=== PATIENT | female | born 1965 | race Caucasian/White ===

== ENCOUNTER 2016-03-31 15:20 | Emergency (ER) | payer OTHER ==
[2016-03-31 15:27] VITALS: BMI 44.9
--- NOTE | 2016-03-31 16:13 | PDOC ---
History of Present Illness - General Chief Complaint: Respiratory Stated Complaint: SOB, RT CALF PAIN Time Seen by Provider: 03/31/16 15:58 History Source: Patient - History of Present Illness Timing/Duration: reports: other Associated Symptoms: reports: shortness of breath. denies: cough, fever/chills Past History - Past Medical History Allergies/Adverse Reactions: Allergies Allergy/AdvReac Type Severity Reaction Status Date / Time shellfish derived Allergy Verified 03/31/16 15:27 MUSHROOMS Allergy Uncoded 03/31/16 15:27 Home Medications: Ambulatory Orders Cyclobenzaprine HCl [Flexeril -] 10 mg PO Q8H 10/04/11 Omeprazole [Prilosec (RX)] 20 mg PO DAILY 06/09/12 Sertraline HCl [Zoloft -] 50 mg PO HS 06/09/12 Valsartan/Hydrochlorothiazide [Diovan Hct 320-25 mg Tablet] 1 combo PO DAILY Zolpidem Tartrate [Ambien] 10 mg PO HS 06/09/12 Oxycodone HCl/Acetaminophen [Percocet 5-325 mg Tablet] 1 - 2 tab PO Q4H PRN #0 tablet 06/11/12 Albuterol 0.083% Nebulizer Clemencia [Ventolin 0.083% Nebulizer Soln -] 1 neb NEB Q6H PRN 06/02/13 Albuterol Sulfate Inhaler - [Ventolin HFA Inhaler -] 1 - 2 inh PO Q4H PRN Celecoxib [CeleBREX -] 200 mg PO DAILY 06/02/13 Gabapentin 100 mg PO TID 06/02/13 Loratadine [Claritin -] 10 mg PO DAILY 06/02/13 Nebivolol [Bystolic -] 5 mg PO HS 06/02/13 Salmeterol/Fluticasone [Advair 250Mcg/50Mcg] 2 inh PO BID 06/02/13 Asthma: Yes Diabetes: Yes (BORDERLINE) Disorders: Yes (frEquency) HTN: Yes Liver Disease: Yes (elevated LFT'S) Suicide Attempt (Hx): No - Surgical History Abdominal Surgery: Yes (HERNIA) Orthopedic Surgery: Yes (right tkr) - Psycho/Social/Smoking Cessation Hx Anxiety: No Suicidal Ideation: No Smoking Status: Yes Smoking History: Former smoker Have you smoked in the past 12 months: No Number of Cigarettes Smoked Daily: 0 If you are a former smoker, when did you quit?: 2006 Information on smoking cessation initiated: No Hx Alcohol Use: No Drug/Substance Use Hx: No Substance Use Type: None Review of Systems - Review of Systems Constitutional: No: Chills, Fever Respiratory: Yes: Shortness of Breath. No: Cough Cardiac (ROS): Yes: Chest Pain. No: Palpitations *Physical Exam - Vital Signs Last Vital Signs Temp Pulse Resp BP Pulse Ox 97.8 F 98 H 20 140/104 99 03/31/16 15:23 03/31/16 15:23 03/31/16 15:23 03/31/16 15:23 03/31/16 15:23 - Physical Exam General Appearance: Yes: Appropriately Dressed. No: Apparent Distress HEENT: positive: Normal Voice Neck: positive: Supple Respiratory/Chest: positive: Lungs Clear, Normal Breath Sounds. negative: Respiratory Distress Cardiovascular: positive: Regular Rate, S1, S2 Gastrointestinal/Abdominal: positive: Soft. negative: Tender Integumentary: positive: Dry, Warm Neurologic: positive: Fully Oriented, Alert, Normal Mood/Affect ED Treatment Course - LABORATORY CBC & Chemistry Diagram: 03/31/16 16:35 03/31/16 16:35 - RADIOLOGY Radiology Studies Ordered: Category Date Time Status CHEST X-RAY PORTABLE* [RAD] Stat Radiology 03/31/16 15:59 Ordered Medical Decision Making - Medical Decision Making 03/31/16 16:12 50-year-old female, obesity, hypertension, [id number] diabetes, asthma, status post right knee replacement, presenting with shortness of breath 2 days that patient noticed mostly on exertion. States symptoms worsened today and while on her way to the ED developed some vague chest pain that has since resolved. Patient denies any palpitations, diaphoresis, nausea or vomiting. No history of similar symptoms in past. Pt states she was seen by her PMD this week and told BP was elevated and had new meds added to regimen. Patient also complaining of severe bilateral leg cramps, right greater than left that started 6 days ago. No obvious risk factors for DVT/PE See Exam Intermittent sob w/ CP Sxs since resolved Hypertensive in ED w/ clear chest/lungs R/o ACS -ekg -trops x 2 -labs -cxr B/l LE pain No swelling on exam No RF for DVT but unable to PERC out given age, will send dimer veto given sob/cp Possible MSK -pain control 03/31/16 18:34 EKG, CXR and labs neg, BNP still pending. Pt remains stable in ED, for rpt trop in 6 hrs. 03/31/16 18:37 *DC/Admit/Observation/Transfer Diagnosis at time of Disposition: Shortness of breath Chest pain Qualifiers: Chest pain type: unspecified Qualified Code(s): R07.9 - Chest pain, unspecified Addendum entered and electronically signed by Mahad Carbone PA 03/31/16 18:49 : Progress Note - Progress Note Progress Note: Regarding leg cramps, pt now reports she was on gabapentin in past but ahs since been taken on. Toradol in progress
--- NOTE | 2016-03-31 16:41 | PDOC ---
*Physical Exam - Vital Signs Last Vital Signs Temp Pulse Resp BP Pulse Ox 97.8 F 98 H 20 140/104 99 03/31/16 15:23 03/31/16 15:23 03/31/16 15:23 03/31/16 15:23 03/31/16 15:23 ED Treatment Course - LABORATORY CBC & Chemistry Diagram: 03/31/16 16:35 03/31/16 16:35 Medical Decision Making - Medical Decision Making 03/31/16 16:41 Pt seen by Midlevel Provider under my direct supervision Ancillary studies reviewed I agree with plan as outlined by Midlevel Provider *DC/Admit/Observation/Transfer Diagnosis at time of Disposition: Chest pain, SOB (shortness of breath) - Discharge Dispostion Disposition: HOME Condition at time of disposition: Stable - Referrals Referrals: Jeff Voss MD [Primary Care Provider] - - Patient Instructions Printed Discharge Instructions: DI for Chest Pain Additional Instructions: Your Discharge Instructions: You must call primary care physician within 24 hours to arrange follow-up. Return to the Emergency Department with any new, persistent or worsening symptoms, for fever, chills, SOB, dizziness or any other concerning changes that may occur.
[2016-03-31] MEDS ORDERED: KETOROLAC TROMETHAMINE 30 MG/1 ML VIAL IVPUSH ONE (17:00)
[2016-03-31 17:18] LABS: BASOPHIL 0.5 % (0-2.0); EOSINOPHIL 2.4 % (0-4.5); MCH 28.4 pg (25.7-33.7); MCHC 32.5 g/dl (32.0-36.0); MEAN CELL VOLUME 87.6 fl (80-96); MEAN PLT VOLUME 8.2 fl (7.5-11.1); NEUTROPHILS 53.1 % (42.8-82.8); PLATELET COUNT 404 K/MM3 (134-434); RDW 13.7 % (11.6-15.6); WHITE BLOOD COUNT 8.3 K/mm3 (4.0-10.0)
[2016-03-31 17:59] LABS: ALBUMIN 3.9 g/dl (3.4-5.0); ANION GAP 8 (8-16); CALCIUM 9.1 mg/dL (8.5-10.1); CO2 31 mmol/L (21-32); GLUCOSE,RANDOM 99 mg/dL (74-106)
[2016-03-31 18:01] LABS: TROPONIN I < 0.02 ng/ml (0.00-0.05)
[2016-03-31 18:02] LABS: ALK PHOS 113 U/L (45-117); BILIRUBIN,TOTAL 0.3 mg/dL (0.2-1.0); SGOT/AST 56 U/L (15-37); SGPT/ALT 73 U/L (12-78); TOT PROT 7.8 g/dl (6.4-8.2)
[2016-03-31] MEDS ORDERED: KETOROLAC TROMETHAMINE 30 MG/1 ML VIAL ONE (18:16)
[2016-03-31 18:26] LABS: URINE APPEARANCE SLCLOUDY; URINE BILIRUBIN NEGATIVE (NEGATIVE); URINE BLOOD NEGATIVE (NEGATIVE); URINE COLOR YELLOW; URINE GLUCOSE (UA) NEGATIVE (NEGATIVE); URINE KETONE NEGATIVE (NEGATIVE); URINE NITRITE NEGATIVE (NEGATIVE); URINE PROTEIN NEGATIVE (NEGATIVE); URINE UROBILINOGEN NEGATIVE E.U./dl (0.2-1.0)
[2016-03-31 18:39] LABS: URINE LEUK ESTERASE 1+ (NEGATIVE)
[2016-03-31 18:59] LABS: TROPONIN I < 0.02 ng/ml (0.00-0.05); URINE HYALINE CAST 4 /lpf; URINE MUCUS RARE; URINE RBC 7 /hpf (0-3); URINE WBC <1 /hpf (3-5)
--- NOTE | 2016-03-31 22:05 | PDOC ---
*Physical Exam - Vital Signs Last Vital Signs Temp Pulse Resp BP Pulse Ox 97.8 F 86 18 144/88 97 03/31/16 15:23 03/31/16 20:08 03/31/16 20:08 03/31/16 20:08 03/31/16 20:08 ED Treatment Course - LABORATORY CBC & Chemistry Diagram: 03/31/16 16:35 03/31/16 16:35 - ADDITIONAL ORDERS Additional order review: Laboratory Results 03/31/16 03/31/16 03/31/16 16:35 16:35 16:35 D-Dimer < 200 Sodium 140 Potassium 4.3 Chloride 101 Carbon Dioxide 31 Anion Gap 8 BUN 19 H Creatinine 1.0 Creat Clearance w eGFR 58.45 Random Glucose 99 Calcium 9.1 Total Bilirubin 0.3 AST 56 H ALT 73 Alkaline Phosphatase 113 Creatine Kinase Troponin I < 0.02 B-Natriuretic Peptide 22.51 Total Protein 7.8 Albumin 3.9 Serum , Qual Negative Urine Color Yellow Urine Appearance Slcloudy Urine pH 5.0 Ur Specific Garwin 1.024 Urine Protein Negative Urine Glucose (UA) Negative Urine Ketones Negative Urine Blood Negative Urine Nitrite Negative Urine Bilirubin Negative Urine Urobilinogen Negative Ur Leukocyte Esterase 1+ H Urine RBC 7 Urine WBC <1 Ur Epithelial Cells Rare Hyaline Casts 4 Urine Mucus Rare 03/31/16 16:35 D-Dimer Sodium Potassium Chloride Carbon Dioxide Anion Gap BUN Creatinine Creat Clearance w eGFR Random Glucose Calcium Total Bilirubin AST ALT Alkaline Phosphatase Creatine Kinase 107 Troponin I < 0.02 B-Natriuretic Peptide Total Protein Albumin Serum , Qual Urine Color Urine Appearance Urine pH Ur Specific Garwin Urine Protein Urine Glucose (UA) Urine Ketones Urine Blood Urine Nitrite Urine Bilirubin Urine Urobilinogen Ur Leukocyte Esterase Urine RBC Urine WBC Ur Epithelial Cells Hyaline Casts Urine Mucus 03/31/16 16:35 RBC 4.87 D MCV 87.6 MCHC 32.5 RDW 13.7 MPV 8.2 Neutrophils % 53.1 D Lymphocytes % 35.8 D Monocytes % 8.2 Eosinophils % 2.4 D Basophils % 0.5 - Medications Given in the ED: ED Medications Discontinued Medications Generic Name Dose Route Start Last Admin Trade Name Freq PRN Reason Stop Dose Admin Ketorolac Tromethamine 30 mg 03/31/16 17:00 03/31/16 18:19 Toradol Injection - IVPUSH 03/31/16 17:01 30 mg ONCE ONE Administration Medical Decision Making - Medical Decision Making 03/31/16 22:00 Patient was endorsed to me by MARIA L Bautista pending repeat ekg and trop. Patient was seen and evaluated c/o b/l leg cramping and concerned that the problems was not addressed. States she feels a knot in the right leg. P/E right leg nontender, no cord felt. d-dimer neg. the above result d/w the patient await EKG and trop #2 03/31/16 23:03 repeat trop neg EKG sinus rhythm rate 83, normal axis deviation, no ST-T wave changes c/o cramping in the legs again given Valium 5mg po I discussed the physical exam findings, ancillary test results and final diagnoses with the patient. I answered all of the patient's questions. The patient was satisfied with the care received and felt comfortable with the discharge plan and treatment plan. The Patient agrees to follow up with the primary care physician within 24-72 hours. *DC/Admit/Observation/Transfer Diagnosis at time of Disposition: SOB (shortness of breath) Chest pain Qualifiers: Chest pain type: unspecified Qualified Code(s): R07.9 - Chest pain, unspecified - Discharge Dispostion Condition at time of disposition: Stable - Referrals Referrals: Jeff Voss MD [Primary Care Provider] - - Patient Instructions Printed Discharge Instructions: DI for Chest Pain Additional Instructions: Your Discharge Instructions: You must call primary care physician within 24 hours to arrange follow-up. Return to the Emergency Department with any new, persistent or worsening symptoms, for fever, chills, SOB, dizziness or any other concerning changes that may occur. - Post Discharge Activity
[2016-03-31] MEDS ORDERED: diazePAM 5 MG TABLET PO ONE (23:03)
[2016-03-31] MEDS ORDERED: diazePAM 5 MG TABLET ONE (23:21)
[2016-03-31 23:32] VITALS: BP 157/102; PULSE 88; TEMP 97.3
--- NOTE | 2016-04-01 14:36 | EKG ---
Test Reason : Blood Pressure : / mmHG Vent. Rate : 083 BPM Atrial Rate : 083 BPM P-R Int : 130 ms QRS Dur : 084 ms QT Int : 392 ms P-R-T Axes : 018 031 022 degrees QTc Int : 460 ms POOR DATA QUALITY, INTERPRETATION MAY BE ADVERSELY AFFECTED NORMAL SINUS RHYTHM NORMAL ECG WHEN COMPARED WITH ECG OF 31-MAR-2016 17:15, NO SIGNIFICANT CHANGE WAS FOUND Confirmed by MARITZA DUMONT MD ([id number]) on 04/01/2016 2:36:33 PM Referred By: Confirmed By:MARITZA DUMONT MD
--- NOTE | 2016-04-01 14:40 | EKG ---
Test Reason : Blood Pressure : / mmHG Vent. Rate : 094 BPM Atrial Rate : 094 BPM P-R Int : 132 ms QRS Dur : 082 ms QT Int : 372 ms P-R-T Axes : 024 021 017 degrees QTc Int : 465 ms NORMAL SINUS RHYTHM POSSIBLE LEFT ATRIAL ENLARGEMENT BORDERLINE ECG WHEN COMPARED WITH ECG OF 03-MAR-2012 18:49, NO SIGNIFICANT CHANGE WAS FOUND Confirmed by MARITZA DUMONT MD ([id number]) on 04/01/2016 2:39:55 PM Referred By: Confirmed By:MARITZA DUMONT MD
== END 2016-03-31 23:33 | disposition home or self-care (01) ==
LOC: JER 15:20
PROC: 3E0333Z Introduction of Anti-inflammatory into Peripheral Vein, Percutaneous Approach (ICD-10-PCS; principal; 2016-03-31)
DX: R07.9 Chest pain, unspecified (principal); R06.02 Shortness of breath; I10 Essential (primary) hypertension; E11.9 Type 2 diabetes mellitus without complications; J45.909 Unspecified asthma, uncomplicated; E66.01 Morbid (severe) obesity due to excess calories; Z68.42 Body mass index [BMI] 45.0-49.9, adult
CPT/HCPCS: 36415; 71010-TC; 80053; 81003; 81015; 82550; 83880; 84484; 84703; 85025; 85379; 93005; 93010; 96374; 99283-25

== ENCOUNTER 2016-05-20 15:30 | Emergency (ER) | payer OTHER ==
[2016-05-20 15:41] VITALS: BP 138/96; PULSE 85; TEMP 98.4; BMI 45.3
--- NOTE | 2016-05-20 16:08 | PDOC ---
History of Present Illness - General Chief Complaint: Abscess Boil Stated Complaint: LEG PAIN Time Seen by Provider: 05/20/16 16:06 History Source: Patient Exam Limitations: No Limitations - History of Present Illness Initial Comments: 05/20/16 16:06 CHIEF COMPLAINT: Right calf bruise, came to r/o Deep Vein Thrombosis PCP: Dr. Lake HISTORY OF PRESENT ILLNESS: Patient is a 50- year-old female presented to the ED with the chief complaints of Right calf bruise, came in to r/o Deep Vein Thrombosis. A/c to the patient, this morning she was fine then noticed a bump on the right calf, bluish in color , tender to touch, no problems in movement. Denies fever, chills, rigors, sweating, chest pain, sob, cough, palpitation, abdominal pain, nausea or vomiting. Patient mentions she has had shortness of breath with b/l lower extremity pain since 2 months. She has been following with Dr. Lake regularly and had CT chest with IV contrast/ Duplex of lower extremity and got the results 3 days back which was unremarkable as per the patient. Patient was seen at the ED on 03/31/2016 for SOB but signed out AMA. Bowel/Bladder habit normal. Sleep/Appetite Normal. Is planning to perform sleeve surgery. Her sister due to brain aneurysm last year and had her Brain MRI to r/o aneurysm which was unremarkable. Recent Travel: None PAST MEDICAL HISTORY: Obesity, Hypertension, DM, Asthma, s/p right total knee replacement PAST SURGICAL HISTORY: As mentioned above Social History: Smoking: Quit in 2006, used to be an occasional smoker Alcohol: Denies Drugs: Stopped smoking marijuana. Family History: Sister last year due to brain aneurysm. Allergies: NKDA Past History - Past Medical History Allergies/Adverse Reactions: Allergies Allergy/AdvReac Type Severity Reaction Status Date / Time shellfish derived Allergy Verified 05/20/16 15:41 MUSHROOMS Allergy Uncoded 05/20/16 15:41 Home Medications: Ambulatory Orders Albuterol Sulfate [Proair Respiclick] 90 mcg IH PRN PRN 03/31/16 Amlodipine Besylate 5 mg PO DAILY 03/31/16 Cyclobenzaprine HCl [Flexeril -] 10 mg PO TID 03/31/16 Insulin Degludec [Tresiba Flextouch U-100] 0 unit SQ ASDIR 03/31/16 Loratadine 10 mg PO DAILY 03/31/16 Loratadine 10 mg PO DAILY 03/31/16 Losartan Potassium 25 mg PO DAILY 03/31/16 Metformin HCl 500 mg PO DAILY 03/31/16 Metoprolol Succinate [Toprol Xl -] 25 mg PO DAILY 03/31/16 Montelukast Sodium [Singulair] 4 mg PO DAILY 03/31/16 Omeprazole 20 mg PO DAILY 03/31/16 Oxycodone HCl/Acetaminophen [Primlev 10-300 mg Tablet] 1 each PO TID 03/31/16 Rosuvastatin Calcium [Crestor] 10 mg PO DAILY 03/31/16 Zolpidem Tartrate 10 mg PO HS 03/31/16 Asthma: Yes Diabetes: Yes (BORDERLINE) Disorders: Yes (frEquency) HTN: Yes Liver Disease: Yes (elevated LFT'S) Suicide Attempt (Hx): No - Surgical History Abdominal Surgery: Yes (HERNIA) Orthopedic Surgery: Yes (right tkr) - Psycho/Social/Smoking Cessation Hx Anxiety: No Suicidal Ideation: No Smoking Status: Yes Smoking History: Former smoker Have you smoked in the past 12 months: No Number of Cigarettes Smoked Daily: 0 If you are a former smoker, when did you quit?: 2006 Information on smoking cessation initiated: No Hx Alcohol Use: No Drug/Substance Use Hx: No Substance Use Type: None Review of Systems - Review of Systems Able to Perform ROS?: Yes Comments:: 05/20/16 18:03 CONSTITUTIONAL:~ Absent: fever, chills, diaphoresis, generalized weakness, malaise, loss of appetite HEENT:~ Absent: rhinorrhea, nasal congestion, throat pain, throat swelling, difficulty swallowing, mouth swelling, ear pain, eye pain, visual Changes CARDIOVASCULAR:~ Absent: chest pain, syncope, palpitations, irregular heart rate, lightheadedness , peripheral edema RESPIRATORY:~ Absent: cough, shortness of breath, dyspnea with exertion, orthopnea, wheezing, stridor, hemoptysis GASTROINTESTINAL: Absent: abdominal pain, abdominal distension, nausea, vomiting, diarrhea, constipation, melena, hematochezia GENITOURINARY:~ Absent: dysuria, frequency, urgency, hesitancy, hematuria, flank pain, genital pain MUSCULOSKELETAL: Absent: myalgia, arthralgia, joint swelling SKIN:~ Absent: rash, itching, pallor HEMATOLOGIC/IMMUNOLOGIC:~ Absent: easy bleeding, easy bruising, lymphadenopathy, frequent infections ENDOCRINE: Absent: unexplained weight gain, unexplained weight loss, heat intolerance, cold intolerance NEUROLOGIC:~ Absent: headache, focal weakness or paresthesias, dizziness, unsteady gait, seizure, mental status changes, bladder or bowel incontinence PSYCHIATRIC:~ Absent: anxiety, depression, suicidal or homicidal ideation, hallucinations. Skin: Present: Bruise over the right calf. Is the patient limited Kazakh proficient: No *Physical Exam - Vital Signs Last Vital Signs Temp Pulse Resp BP Pulse Ox 98.4 F 85 18 138/96 97 05/20/16 15:38 05/20/16 15:38 05/20/16 15:38 05/20/16 15:38 05/20/16 15:38 - Physical Exam Comments: 05/20/16 18:04 PE: GENERAL: Awake, alert, and fully oriented, in no acute distress HEAD: No signs of trauma EYES: PERRLA, EOMI, sclera anicteric, conjunctiva clear ENT: Auricles normal inspection, hearing grossly normal, nares patent, oropharynx clear without exudates. Moist mucosa NECK: Normal ROM, supple, no lymphadenopathy, JVD, or masses LUNGS: Breath sounds equal, clear to auscultation bilaterally. No wheezes, and no crackles.. HEART: Regular rate and rhythm, normal S1 and S2, no murmurs, rubs or gallops ABDOMEN: Soft, nontender, normoactive bowel sounds. No guarding, no rebound. No masses EXTREMITIES: Normal range of motion, no edema. No clubbing or cyanosis. No cords, erythema, or tenderness NEUROLOGICAL: Cranial nerves II through XII grossly intact. Normal speech, normal gait SKIN: Left lower extremity skin normal Right lower extremity: Proximal calf near the popliteal fossa there is a hematoma measuring approximately 6.5 x 6.1 cm with an irregular erythema in the center, tenderness to touch, no problems in the movement of the leg, no calf tenderness (Homans sign negative) Medical Decision Making - Medical Decision Making 05/20/16 16:06 Patient seen and examined at bed side. Vitals noted, unremarkable. Patient looks comfortable. Clinical Impression: Bruise/Hematoma on the right proximal calf measuring approximately 6.5 x 6.1 cm No calf tenderness, patient has duplex of both legs, got report 3 days ago which was negative for DVT as per the patient. Patient has been explained about her clinical condition and can be discharged as she is hemodynamically stable. Patient has been advised to return the ED if symptoms persist or if she develops NEW symptoms and to visit her primary doctor as soon as possible. Illness, Investigation and Plan of care explained to the patient. She verbalized understanding. Case seen and discussed with Dr. Mario. *DC/Admit/Observation/Transfer Diagnosis at time of Disposition: Hematoma - Discharge Dispostion Disposition: HOME Admit: No - Referrals Referrals: Jass Voss [Primary Care Provider] - - Patient Instructions Printed Discharge Instructions: DI for Hematoma (Bruise) Additional Instructions: I am sorry you had to come to the Emergency Care. Your swelling over the right calf looks like its a bruise (Hematoma). It is not a Deep vein thrombosis. Most likely you may have hit the calf without your notice. We can see a red alisson inside the bruise which is likely a alisson of an object that you may have been hit with. The duplex you had last week is negative for DVT as you mentioned, there is no need to worry at this time. However, if your symptoms persist or is getting worse or if you develop NEW symptoms, please come to the Emergency Department immediately. Please make sure you make an appointment with your primary doctor as soon as possible for further evaluation of your chronic symptoms.
--- NOTE | 2016-05-20 17:18 | PDOC ---
Attending Attestation - Resident Resident Name: Summer Nunez - HPI HPI: 05/20/16 17:14 50 yo female p/w 6 cm bruise and hematoma behind her right knee -pt came because she was afraid it was a deep vein thrombosis. -she is not on anticoagulation 05/21/16 02:02 - Physicial Exam PE: 05/21/16 02:02 [id number] presents with bruise behind her right leg lungs cta b/l abd soft nontender extremities- no cellulitis,no abscesses,normal pulses. Hematoma to posterior rt leg neuro axox3,ambulatory - Medical Decision Making 05/21/16 02:04 50 yo female w superficial hematoma to posterior rt leg, discharged home
== END 2016-05-20 17:38 | disposition home or self-care (01) ==
LOC: JER 15:30
DX: S80.11XA Contusion of right lower leg, initial encounter (principal); I10 Essential (primary) hypertension; E11.9 Type 2 diabetes mellitus without complications; Z79.84 Long term (current) use of oral hypoglycemic drugs; J45.909 Unspecified asthma, uncomplicated; R79.89 Other specified abnormal findings of blood chemistry; E66.01 Morbid (severe) obesity due to excess calories; Z68.42 Body mass index [BMI] 45.0-49.9, adult
CPT/HCPCS: 99281-25

== ENCOUNTER 2017-03-11 00:23 | Emergency (ER) | payer OTHER ==
--- NOTE | 2017-03-11 01:29 | PDOC ---
History of Present Illness <Eitan Ramos - Last Filed: 03/11/17 01:53> <Scot Heard - Last Filed: 03/11/17 06:14> - General Chief Complaint: Chest Pain Stated Complaint: CHEST PAIN Time Seen by Provider: 03/11/17 01:06 - History of Present Illness Initial Comments: 03/11/17 01:33 "The patient is a 51 year old female, with a significant past medical history of DM, hypertension, and asthma, who presents to the emergency room complaining left sided chest pain beginning approx. two hours ago. The patient describes the chest pain as a constant pressure feeling that is made worse when bending over. The patient reports she took baby aspirin for the chest pain with mild relief. The patient reports no associated shortness of breath. She denies recent fever, diaphoresis, headache or dizziness. She denies recent nausea, vomit, diarrhea or constipation. She denies recent calf tenderness or swelling, no recent travel/immobilization. No h/o DVT/PE. Allergies: NKA Past surgical history: None reported. Primary Care Physician: Dr. Kaiden Voss " (Scot Heard) Past History <Eitan Ramos - Last Filed: 03/11/17 01:53> - Past Medical History Asthma: Yes Diabetes: Yes (BORDERLINE) Disorders: Yes (frEquency) HTN: Yes Liver Disease: Yes (elevated LFT'S) - Surgical History Abdominal Surgery: Yes (HERNIA) Orthopedic Surgery: Yes (right tkr) - Suicide/Smoking/Psychosocial Hx Smoking Status: Yes Smoking History: Never smoked Have you smoked in the past 12 months: No Number of Cigarettes Smoked Daily: 0 If you are a former smoker, when did you quit?: 2006 Information on smoking cessation initiated: No Hx Alcohol Use: No Drug/Substance Use Hx: No Substance Use Type: None <Scot Heard - Last Filed: 03/11/17 06:14> - Past Medical History Allergies/Adverse Reactions: Allergies Allergy/AdvReac Type Severity Reaction Status Date / Time shellfish derived Allergy Verified 03/11/17 01:17 MUSHROOMS Allergy Uncoded 03/11/17 01:17 Home Medications: Ambulatory Orders Albuterol Sulfate [Proair Respiclick] 90 mcg IH PRN PRN 03/31/16 Amlodipine Besylate 5 mg PO DAILY 03/31/16 Cyclobenzaprine HCl [Flexeril -] 10 mg PO TID 03/31/16 Insulin Degludec [Tresiba Flextouch U-100] 0 unit SQ ASDIR 03/31/16 Loratadine 10 mg PO DAILY 03/31/16 Loratadine 10 mg PO DAILY 03/31/16 Losartan Potassium 25 mg PO DAILY 03/31/16 Metformin HCl 500 mg PO DAILY 03/31/16 Metoprolol Succinate [Toprol Xl -] 25 mg PO DAILY 03/31/16 Montelukast Sodium [Singulair] 4 mg PO DAILY 03/31/16 Omeprazole 20 mg PO DAILY 03/31/16 Oxycodone HCl/Acetaminophen [Primlev 10-300 mg Tablet] 1 each PO TID 03/31/16 Rosuvastatin Calcium [Crestor] 10 mg PO DAILY 03/31/16 Zolpidem Tartrate 10 mg PO HS 03/31/16 Review of Systems <Eitan Ramos - Last Filed: 03/11/17 01:53> <Scot Heard - Last Filed: 03/11/17 06:14> - Review of Systems Comments:: 03/11/17 01:29 "GENERAL/CONSTITUTIONAL: No fever or chills. No weakness. HEAD, EYES, EARS, NOSE AND THROAT: No change in vision. No ear pain or discharge. No sore throat. CARDIOVASCULAR: + L sided chest pain, no shortness of breath. RESPIRATORY: No cough, wheezing, or hemoptysis. GASTROINTESTINAL: No nausea, vomiting, diarrhea or constipation. GENITOURINARY: No dysuria, frequency, or change in urination. MUSCULOSKELETAL: No joint or muscle swelling or pain. No neck or back pain. SKIN: No rash NEUROLOGIC: No headache, vertigo, loss of consciousness, or change in strength/ sensation. ENDOCRINE: No increased thirst. No abnormal weight change. HEMATOLOGIC/LYMPHATIC: No anemia, easy bleeding, or history of blood clots. ALLERGIC/IMMUNOLOGIC: No hives or skin allergy. " (Scot Heard) *Physical Exam <Eitan Ramos - Last Filed: 03/11/17 01:53> <Scot Heard - Last Filed: 03/11/17 06:14> - Vital Signs Last Vital Signs Temp Pulse Resp BP Pulse Ox 98.8 F 96 H 20 148/86 97 03/11/17 01:09 03/11/17 01:09 03/11/17 01:09 03/11/17 01:09 03/11/17 01:09 - Physical Exam Comments: 03/11/17 01:29 "GENERAL: Awake, alert, and fully oriented, in no acute distress HEAD: No signs of trauma EYES: PERRLA, EOMI, sclera anicteric, conjunctiva clear ENT: Auricles normal inspection, hearing grossly normal, nares patent, oropharynx clear without exudates. Moist mucosa NECK: Nontender, no stepoffs, Normal ROM, supple, no lymphadenopathy, JVD, or masses LUNGS: Breath sounds equal, clear to auscultation bilaterally. No wheezes, and no crackles HEART: Regular rate and rhythm, normal S1 and S2, no murmurs, rubs or gallops CHEST: L chest wall tenderness, no crepitus ABDOMEN: Soft, nontender, normoactive bowel sounds. No guarding, no rebound. No masses EXTREMITIES: Normal range of motion, no edema. No clubbing or cyanosis. No cords, erythema, or tenderness NEUROLOGICAL: Cranial nerves II through XII intact. 5/5 strength and sensation in all extremities, Normal speech, normal gait SKIN: Warm, Dry, normal turgor, no rashes or lesions noted. " (Scot Heard) Heart Score/ECG Review <Eitan Ramos - Last Filed: 03/11/17 01:53> - History History: Slightly suspicious - Electrocardiogram EKG: Normal - Age Age: 45-65 - Risk Factors Risk Factors Heart Score: Yes Hx Hypercholesterolemia, Yes Hx Hypertension, Yes Hx Diabetes, Yes Smoking History Based on the list above the patient has:: >/=3 risk factors or Hx atherosclerotic disease - Troponin Troponin: </= normal limit - Score Heart Score - Total: 3 <Scot Heard - Last Filed: 03/11/17 06:14> - ECG Impressions Comment:: 03/11/17 01:27 NSR, no AIDEN/STDs, no TWIs, axis wnl, intervals wnl, rate 89 (Scot Heard) ED Treatment Course - LABORATORY CBC & Chemistry Diagram: 03/11/17 01:22 03/11/17 01:22 <Eitan Ramos - Last Filed: 03/11/17 01:53> - LABORATORY CBC & Chemistry Diagram: 03/11/17 01:22 03/11/17 05:03 <Scot Heard - Last Filed: 03/11/17 06:14> - ADDITIONAL ORDERS Additional order review: Laboratory Results 03/11/17 03/11/17 03/11/17 05:03 05:03 01:22 Sodium 142 137 Potassium 3.6 3.7 Chloride 108 H 101 Carbon Dioxide 22 27 Anion Gap 12 9 BUN 30 H 35 H D Creatinine 1.4 H D 1.8 H D Creat Clearance w eGFR 39.49 29.55 Random Glucose 99 D 162 H D Calcium 7.9 L 9.0 Total Bilirubin 0.2 0.2 D AST 55 H 68 H D ALT 57 66 Alkaline Phosphatase 86 97 Creatine Kinase 108 Troponin I < 0.02 B-Natriuretic Peptide Total Protein 6.3 L 7.0 Albumin 3.2 L 3.7 03/11/17 01:22 Sodium Potassium Chloride Carbon Dioxide Anion Gap BUN Creatinine Creat Clearance w eGFR Random Glucose Calcium Total Bilirubin AST ALT Alkaline Phosphatase Creatine Kinase 126 Troponin I < 0.02 B-Natriuretic Peptide 81.87 Total Protein Albumin 03/11/17 01:22 RBC 4.60 MCV 86.6 MCHC 33.1 RDW 14.1 MPV 8.2 Neutrophils % 57.4 Lymphocytes % 32.8 Monocytes % 8.7 Eosinophils % 0.6 Basophils % 0.5 - RADIOLOGY Radiology Studies Ordered: Category Date Time Status CHEST PA & LAT [RAD] Stat Radiology 03/11/17 01:25 Taken - Medications Given in the ED: ED Medications Discontinued Medications Generic Name Dose Route Start Last Admin Trade Name Ceferino PRN Reason Stop Dose Admin Sodium Chloride 1,000 mls @ 1,000 mls/hr 03/11/17 02:40 03/11/17 02:46 Normal Saline - IV 03/11/17 03:39 1,000 mls/hr ASDIR STA Administration Sodium Chloride 1,000 mls @ 1,000 mls/hr 03/11/17 02:43 03/11/17 02:46 Normal Saline - IV 03/11/17 03:42 1,000 mls/hr ASDIR STA Administration Medical Decision Making <Eitan Ramos - Last Filed: 03/11/17 01:53> <Scot Heard - Last Filed: 03/11/17 06:14> - Medical Decision Making 03/11/17 01:27 51 F with atypical chest pain. Low suspicion for ACS, as pt with nonischemic EKG and reproducible chest pain with palpation. However, given pt's h/o DM, HTN , HLD, will r/o ACS with serial trops. HEART score 3. PE is unlikely, as pt does not complain of SOB. Does not have any clinical signs of DVT on exam. - Labs, trop - CXR 03/11/17 06:05 CBC,CMP WBC 7.3 K/mm3 (4.0-10.0) 03/11/17 01:22 RBC 4.60 M/mm3 (3.60-5.2) 03/11/17 01:22 Hgb 13.2 GM/dL (10.7-15.3) 03/11/17 01:22 Hct 39.8 % (32.4-45.2) 03/11/17 01:22 MCV 86.6 fl (80-96) 03/11/17 01:22 MCH 28.7 pg (25.7-33.7) 03/11/17 01:22 MCHC 33.1 g/dl (32.0-36.0) 03/11/17 01:22 RDW 14.1 % (11.6-15.6) 03/11/17 01:22 Plt Count 304 K/MM3 (134-434) D 03/11/17 01:22 MPV 8.2 fl (7.5-11.1) 03/11/17 01:22 Neutrophils % 57.4 % (42.8-82.8) 03/11/17 01:22 Lymphocytes % 32.8 % (8-40) 03/11/17 01:22 Monocytes % 8.7 % (3.8-10.2) 03/11/17 01:22 Eosinophils % 0.6 % (0-4.5) 03/11/17 01:22 Basophils % 0.5 % (0-2.0) 03/11/17 01:22 Sodium 142 mmol/L (136-145) 03/11/17 05:03 Potassium 3.6 mmol/L (3.5-5.1) 03/11/17 05:03 Chloride 108 mmol/L (98-107) 03/11/17 05:03 Carbon Dioxide 22 mmol/L (21-32) 03/11/17 05:03 Anion Gap 12 (8-16) 03/11/17 05:03 BUN 30 mg/dL (7-18) H 03/11/17 05:03 Creatinine 1.4 mg/dL (0.55-1.02) H D 03/11/17 05:03 Creat Clearance w eGFR 39.49 (>60) 03/11/17 05:03 Random Glucose 99 mg/dL (74-106) D 03/11/17 05:03 Calcium 7.9 mg/dL (8.5-10.1) L 03/11/17 05:03 Total Bilirubin 0.2 mg/dL (0.2-1.0) 03/11/17 05:03 AST 55 U/L (15-37) H 03/11/17 05:03 ALT 57 U/L (12-78) 03/11/17 05:03 Alkaline Phosphatase 86 U/L (45-117) 03/11/17 05:03 Creatine Kinase 108 IU/L (26-192) 03/11/17 05:03 Troponin I < 0.02 ng/ml (0.00-0.05) 03/11/17 05:03 B-Natriuretic Peptide 81.87 pg/ml (5-125) 03/11/17 01:22 Total Protein 6.3 g/dl (6.4-8.2) L 03/11/17 05:03 Albumin 3.2 g/dl (3.4-5.0) L 03/11/17 05:03 Trop negative x 2. CXR clear. Pt initially with ROSALINA with Cr 1.8. Likely pre-renal as BUN also elevated 35. Pt given 2L NS. Repeat CMP shows improvement in Cr to 1.4. Pt reassessed - now with no chest pain. Vitals normal. Well appearing, clinically stable for DC. (Scot Heard) *DC/Admit/Observation/Transfer <Eitan Ramos - Last Filed: 03/11/17 01:53> <Scot Heard - Last Filed: 03/11/17 06:14> Diagnosis at time of Disposition: Chest pain - Discharge Dispostion Disposition: HOME Condition at time of disposition: Fair - Referrals Referrals: Shanika,Kaiden N., MD [Primary Care Provider] - - Patient Instructions Printed Discharge Instructions: DI for Atypical Chest Pain Additional Instructions: Please follow up with your primary doctor within 1 week for a re-evaluation. Even though your work up today was normal, you still need a referral to a home planning consultant salesperson to be sure that your chest pain isn't due to heart disease. Your labwork today showed that your kidney function was slightly abnormal. This is likely due to dehydration. Drink plenty of fluid to stay hydrated. Be sure to ask your primary doctor to re-check your kidney function in 1 week to be sure that it returns to normal. If you experience worsening or persistent chest pain, shortness of breath, palpitations, or any other concerning symptoms, return to the ER immediately. - Post Discharge Activity - Attestations Scribe Attestion: 03/11/17 01:53 Documentation prepared by Eitan Ramos, acting as medical affairs specialist for Scot Heard MD. (Eitan Ramos) Physician Attestion: 03/11/17 06:13 I, Dr. Scot Heard MD, attest that this document has been prepared under my direction and personally reviewed by me in its entirety. I further attest, that it accurately reflects all work, treatment, procedures and medical decision -making performed by me. (Scot Heard)
[2017-03-11 01:38] VITALS: BP 148/86; PULSE 96; TEMP 98.8; BMI 33.5
[2017-03-11 01:43] LABS: BASO % 0.5 % (0-2.0); EOS % 0.6 % (0-4.5); LYMPH # 2.4 (8-40); MCH 28.7 pg (25.7-33.7); MCHC 33.1 g/dl (32.0-36.0); MEAN CELL VOLUME 86.6 fl (80-96); MEAN PLT VOLUME 8.2 fl (7.5-11.1); MONO # 0.6 # (3.8-10.2); NEUT # 4.2 # (42.8-82.8); NEUT % 57.4 % (42.8-82.8); PLATELET COUNT 304 K/MM3 (134-434); RDW 14.1 % (11.6-15.6); WHITE BLOOD COUNT 7.3 K/mm3 (4.0-10.0)
[2017-03-11 02:28] LABS: ALBUMIN 3.7 g/dl (3.4-5.0); ALK PHOS 97 U/L (45-117); ANION GAP 9 (8-16); BILIRUBIN,TOTAL 0.2 mg/dL (0.2-1.0); CO2 27 mmol/L (21-32); CREATININE 1.8 mg/dL (0.55-1.02); GLUCOSE,RANDOM 162 mg/dL (74-106); SGOT/AST 68 U/L (15-37); SGPT/ALT 66 U/L (12-78)
[2017-03-11] MEDS ORDERED: SODIUM CHLORIDE 1,000 ML IV STA ×2 (02:40→02:43)
[2017-03-11 02:42] LABS: CPK 126 IU/L (26-192); TROPONIN I < 0.02 ng/ml (0.00-0.05)
[2017-03-11 06:00] LABS: ALBUMIN 3.2 g/dl (3.4-5.0); ANION GAP 12 (8-16); BILIRUBIN,TOTAL 0.2 mg/dL (0.2-1.0); CALCIUM 7.9 mg/dL (8.5-10.1); CO2 22 mmol/L (21-32); CREATININE 1.4 mg/dL (0.55-1.02); GLUCOSE,RANDOM 99 mg/dL (74-106); SGOT/AST 55 U/L (15-37); SGPT/ALT 57 U/L (12-78); TOT PROT 6.3 g/dl (6.4-8.2)
[2017-03-11 06:01] LABS: ALK PHOS 86 U/L (45-117); CPK 108 IU/L (26-192); TROPONIN I < 0.02 ng/ml (0.00-0.05)
--- NOTE | 2017-03-11 15:22 | EKG ---
Test Reason : Blood Pressure : / mmHG Vent. Rate : 089 BPM Atrial Rate : 089 BPM P-R Int : 136 ms QRS Dur : 090 ms QT Int : 372 ms P-R-T Axes : 027 020 030 degrees QTc Int : 452 ms NORMAL SINUS RHYTHM NORMAL ECG WHEN COMPARED WITH ECG OF 31-MAR-2016 23:09, NO SIGNIFICANT CHANGE WAS FOUND Confirmed by MELIA BRAGG MD ([id number]) on 03/11/2017 3:22:15 PM Referred By: Confirmed By:MELIA BRAGG MD
== END 2017-03-11 06:15 | disposition home or self-care (01) ==
LOC: JER 00:23
PROC: 3E0337Z Introduction of Electrolytic and Water Balance Substance into Peripheral Vein, Percutaneous Approach (ICD-10-PCS; principal; 2017-03-11)
DX: R07.9 Chest pain, unspecified (principal); J45.909 Unspecified asthma, uncomplicated; R73.03 Prediabetes; Z87.891 Personal history of nicotine dependence; I10 Essential (primary) hypertension; R94.5 Abnormal results of liver function studies
CPT/HCPCS: 36415; 71020-TC; 80053; 82550; 83880; 84484; 85025; 93005; 93010; 96360; 96361; 99284-25

== ENCOUNTER 2018-06-23 05:44 | Inpatient (IN) | payer OTHER ==
[2018-06-23] MEDS ORDERED: ACETAMINOPHEN 1000 MG/100 ML VIAL (NON FORMULARY) IVPB ONE (06:34)
[2018-06-23 06:35] LABS: BASO % 0.6 % (0-2.0); EOS % 0.8 % (0-4.5); HEMATOCRIT 42.6 % (32.4-45.2); HEMOGLOBIN 14.2 GM/dL (10.7-15.3); MCH 27.7 pg (25.7-33.7); MCHC 33.4 g/dl (32.0-36.0); MEAN CELL VOLUME 82.9 fl (80-96); MEAN PLT VOLUME 7.9 fl (7.5-11.1); MONO % 8.4 % (3.8-10.2); NEUT % 54.2 % (42.8-82.8); PLATELET COUNT 347 K/MM3 (134-434); RBC 5.14 M/mm3 (3.60-5.2); RDW 14.7 % (11.6-15.6); WHITE BLOOD COUNT 9.1 K/mm3 (4.0-10.0)
[2018-06-23] MEDS ORDERED: ACETAMINOPHEN INJECTION 100 ML IVPB ONE (06:47)
[2018-06-23 06:59] LABS: ACTIVATED PTT 36.1 SECONDS (25.2-36.5)
[2018-06-23 07:02] LABS: ALBUMIN 3.9 g/dl (3.4-5.0); ALK PHOS 132 U/L (45-117); ANION GAP 10 MMOL/L (8-16); BILIRUBIN,TOTAL 0.5 mg/dL (0.2-1); BLOOD UREA NITROGEN 18 mg/dL (7-18); CHLORIDE 98 mmol/L (98-107); CO2 28 mmol/L (21-32); CREATININE 1.3 mg/dL (0.55-1.3); GLUCOSE,RANDOM 160 mg/dL (74-106); MAGNESIUM 1.8 mg/dL (1.8-2.4); POTASSIUM 3.4 mmol/L (3.5-5.1); SGOT/AST 38 U/L (15-37); SGPT/ALT 42 U/L (13-61); SODIUM 135 mmol/L (136-145); TOT PROT 7.7 g/dl (6.4-8.2)
[2018-06-23] MEDS ORDERED: ASPIRIN 81 MG CHEWABLE TABLETS PO ONE ×2 (07:32→07:33)
--- NOTE | 2018-06-23 07:36 | PDOC ---
History of Present Illness - General Chief Complaint: Shortness of Breath Stated Complaint: SHORTNESS OF BREATH Time Seen by Provider: 06/23/18 07:14 - History of Present Illness Initial Comments: 53 year old female with PMH of COPD, Depression, IDDM, and CHF presenting with three days of headache and one day of chest pain with SOB. States that she went to see her primary care provider a few days prior and was switched to a weekly insulin shot in addition to her regular insulin shot. She tolerated the shot well and had no reaction to the medication. However, yesterday evening, she noticed she was experiencing a chest pressure along with some shortness of breath. She has had the chest pressure constantly since then and she describes it as if "someone is sitting on my chest". Denies radiation of pain, concomitant nausea, vomiting, or other symptoms. Her headaches are described as 7/10, intermittent and frontal. She denies photophobia, neck stiffness, sonophobia, fevers, or other symptoms. She admits that her SOB is better with her neb treatments and her headaches are slightly improved with Tylenol. 06/23/18 07:46 Past History - Past Medical History Allergies/Adverse Reactions: Allergies Allergy/AdvReac Type Severity Reaction Status Date / Time fish derived Allergy Verified 06/23/18 06:14 No Known Drug Allergies Allergy Verified 06/23/18 18:45 shellfish derived Allergy Verified 06/23/18 06:14 MUSHROOMS Allergy Uncoded 06/23/18 06:14 Home Medications: Ambulatory Orders Losartan Potassium 25 mg PO DAILY 03/31/16 Montelukast Sodium [Singulair] 10 mg PO DAILY 03/31/16 Zolpidem Tartrate 10 mg PO HS 03/31/16 metFORMIN HCL [Metformin HCl] 500 mg PO DAILY 03/31/16 Budesonide/Formeterol Fumarate [SYMBICORT 160/4.5mcg -] 2 puff IH BID #1 inhaler 05/07/17 Aspirin 81 mg PO DAILY 06/23/18 Duloxetine HCl 30 mg PO HS 06/23/18 Furosemide [Lasix] 20 mg PO DAILY 06/23/18 Semaglutide [Ozempic] 0.25 mg SQ WEEKLY 06/23/18 Asthma: Yes Diabetes: Yes Disorders: Yes (frEquency) HTN: Yes Hypercholesterolemia: Yes Liver Disease: Yes (elevated LFT'S) - Surgical History Abdominal Surgery: Yes (HERNIA) Orthopedic Surgery: Yes (right tkr) - Suicide/Smoking/Psychosocial Hx Smoking Status: Yes Smoking History: Never smoked Have you smoked in the past 12 months: No Number of Cigarettes Smoked Daily: 0 If you are a former smoker, when did you quit?: 2006 Information on smoking cessation initiated: No 'Breaking Loose' booklet given: 04/26/17 Hx Alcohol Use: No Drug/Substance Use Hx: No Substance Use Type: None Review of Systems - Review of Systems Constitutional: No: Chills, Diaphoresis, Fever HEENTM: No: Blurred Vision, Tearing Respiratory: Yes: Shortness of Breath, SOB with Exertion, SOB at Rest, Wheezing. No: Cough, Orthopnea Cardiac (ROS): Yes: Chest Pain, Chest Tightness. No: Irregular Heart Rate, Lightheadedness, Palpitations, Syncope ABD/GI: No: Diarrhea, Nausea, Vomiting : No: Burning, Dysuria, Discharge Musculoskeletal: No: Back Pain, Joint Pain, Muscle Weakness Integumentary: No: Bruising, Erythema, Lesions Neurological: Yes: Headache. No: Numbness, Paresthesia Psychiatric: Yes: Anxiety. No: Depression Hematologic/Lymphatic: No: Anemia, Blood Clots, Easy Bleeding *Physical Exam - Vital Signs Last Vital Signs Temp Pulse Resp BP Pulse Ox 98.4 F 81 20 134/83 97 06/23/18 05:44 06/23/18 06:53 06/23/18 06:53 06/23/18 06:53 06/23/18 06:53 - Physical Exam General Appearance: Yes: Nourished, Appropriately Dressed. No: Apparent Distress HEENT: positive: EOMI, KELVIN, Normal ENT Inspection, Normal Voice Neck: positive: Trachea midline, Normal Thyroid, Supple. negative: Tender, Rigid Respiratory/Chest: positive: Respiratory Distress, Decreased Breath Sounds, Wheezing. negative: Chest Tender, Lungs Clear (Decreased bilateral breath sounds with mild wheezing.), Normal Breath Sounds, Accessory Muscle Use Cardiovascular: positive: Regular Rhythm, Regular Rate Gastrointestinal/Abdominal: positive: Normal Bowel Sounds, Flat, Soft. negative : Tender Musculoskeletal: positive: Normal Inspection. negative: Decreased Range of Motion Extremity: positive: Normal Capillary Refill, Normal Inspection, Normal Range of Motion. negative: Tender Integumentary: positive: Normal Color, Dry, Warm Neurologic: positive: Fully Oriented, Alert, Normal Mood/Affect, Normal Response , Motor Strength 07/20 ED Treatment Course - LABORATORY CBC & Chemistry Diagram: 06/23/18 06:24 06/23/18 06:24 - ADDITIONAL ORDERS Additional order review: Laboratory Results 06/23/18 06/23/18 06/23/18 06:24 06:24 06:24 PTT (Actin FS) 36.1 Sodium 135 L Potassium 3.4 L Chloride 98 Carbon Dioxide 28 Anion Gap 10 BUN 18 Creatinine 1.3 Creat Clearance w eGFR 42.68 Random Glucose 160 H Calcium 9.0 Magnesium 1.8 Total Bilirubin 0.5 AST 38 H ALT 42 Alkaline Phosphatase 132 H Creatine Kinase 88 Troponin I < 0.02 Total Protein 7.7 Albumin 3.9 06/23/18 06:24 RBC 5.14 MCV 82.9 MCHC 33.4 RDW 14.7 MPV 7.9 Neutrophils % 54.2 D Lymphocytes % 36.0 D Monocytes % 8.4 D Eosinophils % 0.8 D Basophils % 0.6 D - Medications Given in the ED: ED Medications Discontinued Medications Generic Name Dose Route Start Last Admin Trade Name Freq PRN Reason Stop Dose Admin Acetaminophen 1,000 mg 06/23/18 06:34 06/23/18 06:52 Ofirmev Injection - IVPB 06/23/18 06:35 1,000 mg ONCE ONE Administration Medical Decision Making - Medical Decision Making 53 year old with COPD and CHF presenting with headache and chest pain. PE corroborating COPD exacerbatio but unable to rule out ACS. First EKG demonstrating rate 85, OH 144, QTc 459, and QRS 84 wth normal axis and on elements of ischemia. First troponin negative and patient's symptoms improved with duonebs and steroids. Head CT negative and CXR grossly WNL. Spoke to Dr. Chen and will admit patient for COPD exacerbation and rule out MA. 06/23/18 23:09 *DC/Admit/Observation/Transfer Diagnosis at time of Disposition: SOB (shortness of breath) Chest pain Qualifiers: Chest pain type: unspecified Qualified Code(s): R07.9 - Chest pain, unspecified - Discharge Dispostion Condition at time of disposition: Fair Decision to Admit order: Yes - Referrals - Patient Instructions - Post Discharge Activity
[2018-06-23] MEDS ORDERED: methylPREDNISolone NA SUCC 125 MG/2 ML VIAL IVPB ONE (07:45)
[2018-06-23] MEDS ORDERED: ASPIRIN 81 MG CHEWABLE TABLETS ONE (07:46)
[2018-06-23] MEDS ORDERED: ALBUTEROL SO4 2.5/IPRATROPIUM 0.5 INH SOL 3 ML VIAL.NEB. NEB ONE ×3 (07:46→19:55)
[2018-06-23] MEDS ORDERED: methylPREDNISolone NA SUCC 125 MG/2 ML VIAL ONE (07:46)
[2018-06-23] MEDS: ALBUTEROL SO4 2.5/IPRATROPIUM 0.5 INH SOL 3 ML VIAL.NEB. NEB SCH ×8 (07:50→14:55)
[2018-06-23 08:56] LABS: INR 1.03 (0.83-1.09); PROTHROMBIN TIME (PATIENT) 12.2 SEC (9.7-13.0)
--- NOTE | 2018-06-23 09:41 | PDOC ---
Attending Attestation - Resident Resident Name: Saurabh Argueta - ED Attending Attestation I have performed the following: I have examined & evaluated the patient, The case was reviewed & discussed with the resident, I agree w/resident's findings & plan, Exceptions are as noted - HPI HPI: 06/23/18 10:38 agree with resident hpi - Physicial Exam PE: 06/23/18 10:38 agree with resident exam - Medical Decision Making 06/29/18 18:29 53yo F hx HTN, DM, COPD presents to the ED with SOB, chest pain. Pt admitted for COPD and cardiac w/u to r/o ACS.
[2018-06-23 09:42] LABS: N-TERMINAL BNP 59.3 pg/ml (5-125)
[2018-06-23] MEDS ORDERED: ONDANSETRON 4 MG/2 ML VIAL IVPUSH ONE (11:11)
[2018-06-23] MEDS ORDERED: FAMOTIDINE 20 MG/50 ML IVPB 20 MG/50 ML MG IVPB ONE ×2 (11:12→11:57)
[2018-06-23] MEDS ORDERED: ONDANSETRON 4 MG/2 ML VIAL ONE (11:57)
--- NOTE | 2018-06-23 14:51 | CON.CARD ---
Consult Consult Specialty:: Cardiology Referred by:: Medicine Reason for Consultation:: chest pain - History of Present Illness Chief Complaint: chest pain History of Present Illness: 53 year old female with PMH of COPD, IDDM presenting with three days of headache and one day of chest pain with SOB. She had been feeling headaches last week, saw her doctor and lasix was started (had been eating a lot of salt) and DM meds were changed, added ozempic. She took the ozempic starting Saturday and thinks it made her nauseated. Also this weekend had high BPs, started checking due to headaches on 06/21 and had readings 200/100, 180/90. denies any cardiac hx, reportedly had echo and stress test over a year ago which were normal. She was supposed to see her negative cutter soon and have echo next week. Currently complains of L sided chest pain and difficulty taking breaths. - Past Medical History Cardio/Vascular: Yes: HTN, Hyperlipdemia Pulmonary: Yes: Asthma - Past Surgical History Past Surgical History: Yes: Hernia Repair, Joint Replacement (RT TKR) - Alcohol/Substance Use Hx Alcohol Use: No - Smoking History Smoking history: Never smoked Have you smoked in the past 12 months: No Aproximately how many cigarettes per day: 0 If you are a former smoker, when did you quit?: 2006 Home Medications - Allergies Allergies/Adverse Reactions: Allergies Allergy/AdvReac Type Severity Reaction Status Date / Time fish derived Allergy Verified 06/23/18 06:14 shellfish derived Allergy Verified 06/23/18 06:14 MUSHROOMS Allergy Uncoded 06/23/18 06:14 - Home Medications Home Medications: Ambulatory Orders Losartan Potassium 25 mg PO DAILY 03/31/16 Montelukast Sodium [Singulair] 10 mg PO DAILY 03/31/16 Zolpidem Tartrate 10 mg PO HS 03/31/16 metFORMIN HCL [Metformin HCl] 500 mg PO DAILY 03/31/16 Budesonide/Formeterol Fumarate [SYMBICORT 160/4.5mcg -] 2 puff IH BID #1 inhaler 05/07/17 Aspirin 81 mg PO DAILY 06/23/18 Duloxetine HCl 30 mg PO HS 06/23/18 Furosemide [Lasix] 20 mg PO DAILY 06/23/18 Semaglutide [Ozempic] 0.25 mg SQ WEEKLY 06/23/18 Family Disease History - Family Disease History Family History: Unremarkable Review of Systems - Review of Systems Constitutional: reports: No Symptoms Eyes: reports: No Symptoms HENT: reports: No Symptoms Neck: reports: No Symptoms Cardiovascular: reports: No Symptoms Respiratory: reports: No Symptoms Gastrointestinal: reports: No Symptoms Genitourinary: reports: No Symptoms Musculoskeletal: reports: No Symptoms Integumentary: reports: No Symptoms Neurological: reports: No Symptoms Endocrine: reports: No Symptoms Hematology/Lymphatic: reports: No Symptoms Psychiatric: reports: No Symptoms Vital Signs: Vital Signs Temperature 98.4 F 06/23/18 05:44 Pulse Rate 106 H 06/23/18 11:46 Respiratory Rate 23 H 06/23/18 11:46 Blood Pressure 163/102 H 06/23/18 11:46 O2 Sat by Pulse Oximetry (%) 98 06/23/18 11:46 Constitutional: Yes: No Distress, Calm Eyes: Yes: Conjunctiva Clear, EOM Intact HENT: Yes: Atraumatic, Normocephalic Neck: Yes: Supple, Trachea Midline Respiratory: Yes: Regular, CTA Bilaterally Gastrointestinal: Yes: Normal Bowel Sounds, Soft Cardiovascular: Yes: Regular Rate and Rhythm JVD: No Carotid Bruit: No PMI: Non-Displaced Heart Sounds: Yes: S1, S2 Musculoskeletal: No: Back Pain Extremities: No: Cold Edema: No Peripheral Pulses WNL: Yes Peripheral Pulses: 2+ Left Doralis Pedis, 2+ Right Dorsalis Pedis Integumentary: No: Jaundice Neurological: Yes: Alert, Oriented Psychiatric: No: Agitated - Other Data Labs, Other Data: CBC, BMP 06/23/18 06:24 06/23/18 06:24 INR, PTT INR 1.03 (0.83-1.09) 06/23/18 06:24 Troponin, BNP 06/23/18 06/23/18 06:24 06:24 Troponin I < 0.02 B-Natriuretic Peptide 59.3 Troponin, BNP 06/23/18 06/23/18 06:24 06:24 Troponin I < 0.02 B-Natriuretic Peptide 59.3 Assessment/Plan EKG: sinus, nl intervals, no ischemic changes CXR: no acute process 53 year old female with PMH of COPD, IDDM, and CHF presenting with three days of headache and one day of chest pain with SOB Chest pain - EKG no ischemic changes - trop neg x 1 - given age, risk factors echo and nuclear pharm stress ordered HTN - did not take meds this am - reviewed meds with patient - restart metoprolol, losartan/HCTZ, amlodipine - hold lasix, appears euvolemic DM - manage per primary HLD - cont statin COPD - manage per primary
--- NOTE | 2018-06-23 15:29 | EKG ---
Test Reason : Blood Pressure : / mmHG Vent. Rate : 085 BPM Atrial Rate : 085 BPM P-R Int : 144 ms QRS Dur : 084 ms QT Int : 386 ms P-R-T Axes : 053 063 029 degrees QTc Int : 459 ms NORMAL SINUS RHYTHM NORMAL ECG WHEN COMPARED WITH ECG OF 26-APR-2017 10:56, NO SIGNIFICANT CHANGE WAS FOUND Confirmed by HAILEY RICARDO MD ([id number]) on 06/23/2018 3:29:30 PM Referred By: Maricel RODRIGUEZ Confirmed By:HAILEY RICARDO MD
[2018-06-23] MEDS ORDERED: metFORMIN HCL 500 MG TABLET (FP) PO SCH (18:00)
[2018-06-23] MEDS ORDERED: HYDROCHLOROTHIAZIDE 25 MG TABLET (FP) ONE (18:01)
[2018-06-23] MEDS ORDERED: LOSARTAN POTASSIUM 50 MG TABLET (FP) ONE (18:02)
[2018-06-23] MEDS: ALBUTEROL SO4 0.083% IH SOL 2.5 MG/3 ML VIAL.NEB. NEB SCH ×2 (19:21→19:22)
[2018-06-23] MEDS ORDERED: methylPREDNISolone NA SUCC 40 MG/1 ML VIAL ONE (19:55)
[2018-06-23] MEDS: LOSARTAN POTASSIUM 50 MG TABLET (FP) PO SCH (20:11)
[2018-06-23] MEDS: ALBUTEROL SO4 2.5/IPRATROPIUM 0.5 INH SOL 3 ML VIAL.NEB. NEB PRN (20:11)
[2018-06-23] MEDS: methylPREDNISolone NA SUCC 40 MG/1 ML VIAL IVPUSH SCH (20:11)
[2018-06-23] MEDS: HYDROCHLOROTHIAZIDE 25 MG TABLET (FP) PO SCH (20:11)
[2018-06-23] MEDS ORDERED: HEPARIN NA (PORCINE) 5,000 UNITS/ML 1ML VIAL ONE (21:54)
[2018-06-23] MEDS ORDERED: INSULIN (NOVOLOG) ASPART 100 UNITS/ML 10ML VIAL ONE (21:55)
[2018-06-23] MEDS: BUDESONIDE/FORMETEROL FUMARATE 160/4.5 mcg INHALER IH SCH (22:05)
[2018-06-23] MEDS: ROSUVASTATIN CA 10 MG TABLET (FP) PO SCH (22:05)
[2018-06-23] MEDS: INSULIN SLIDING SCALE (NOVOLOG) 1 VIAL SQ SCH (22:05)
[2018-06-23] MEDS: HEPARIN NA (PORCINE) 5,000 UNITS/ML 1ML VIAL SQ SCH (22:05)
[2018-06-23] MEDS: DULoxetine HCL 30 MG CAPSULE.DR (FP) PO SCH (22:05)
--- NOTE | 2018-06-23 22:13 | HP ---
Admitting History and Physical - Past Medical History Cardiovascular: Yes: HTN, Hyperlipdemia Pulmonary: Yes: Asthma - Past Surgical History Past Surgical History: Yes: Hernia Repair, Joint Replacement (RT TKR) - Smoking History Smoking history: Never smoked Have you smoked in the past 12 months: No Aproximately how many cigarettes per day: 0 If you are a former smoker, when did you quit?: 2006 - Alcohol/Substance Use Hx Alcohol Use: No Home Medications - Allergies Allergies/Adverse Reactions: Allergies Allergy/AdvReac Type Severity Reaction Status Date / Time fish derived Allergy Verified 06/23/18 06:14 No Known Drug Allergies Allergy Verified 06/23/18 18:45 shellfish derived Allergy Verified 06/23/18 06:14 MUSHROOMS Allergy Uncoded 06/23/18 06:14 - Home Medications Home Medications: Ambulatory Orders Losartan Potassium 25 mg PO DAILY 03/31/16 Montelukast Sodium [Singulair] 10 mg PO DAILY 03/31/16 Zolpidem Tartrate 10 mg PO HS 03/31/16 metFORMIN HCL [Metformin HCl] 500 mg PO DAILY 03/31/16 Budesonide/Formeterol Fumarate [SYMBICORT 160/4.5mcg -] 2 puff IH BID #1 inhaler 05/07/17 Aspirin 81 mg PO DAILY 06/23/18 Duloxetine HCl 30 mg PO HS 06/23/18 Furosemide [Lasix] 20 mg PO DAILY 06/23/18 Semaglutide [Ozempic] 0.25 mg SQ WEEKLY 06/23/18 Physical Examination Vital Signs: Vital Signs Temperature 98.8 F 06/23/18 17:39 Pulse Rate 110 H 06/23/18 17:39 Respiratory Rate 16 06/23/18 17:39 Blood Pressure 139/90 06/23/18 17:39 O2 Sat by Pulse Oximetry (%) 97 06/23/18 17:39 Labs: CBC, BMP 06/23/18 06:24 06/23/18 06:24
[2018-06-24] MEDS: methylPREDNISolone NA SUCC 40 MG/1 ML VIAL IVPUSH SCH ×3 (02:46→17:24)
[2018-06-24] MEDS: ALBUTEROL SO4 2.5/IPRATROPIUM 0.5 INH SOL 3 ML VIAL.NEB. NEB PRN ×4 (03:23→19:35)
[2018-06-24 03:31] VITALS: BMI 46.3
[2018-06-24 07:43] LABS: BASO % 0.1 % (0-2.0); HEMATOCRIT 40.6 % (32.4-45.2); HEMOGLOBIN 13.3 GM/dL (10.7-15.3); LYMPH % 14.7 % (8-40); MCH 27.4 pg (25.7-33.7); MCHC 32.7 g/dl (32.0-36.0); MEAN CELL VOLUME 83.9 fl (80-96); MEAN PLT VOLUME 8.4 fl (7.5-11.1); MONO % 3.1 % (3.8-10.2); NEUT % 82.1 % (42.8-82.8); PLATELET COUNT 328 K/MM3 (134-434); RBC 4.84 M/mm3 (3.60-5.2); RDW 14.6 % (11.6-15.6); WHITE BLOOD COUNT 6.1 K/mm3 (4.0-10.0)
[2018-06-24 08:10] LABS: ALBUMIN 3.8 g/dl (3.4-5.0); ALK PHOS 126 U/L (45-117); ANION GAP 10 MMOL/L (8-16); BILIRUBIN,TOTAL 0.5 mg/dL (0.2-1); BLOOD UREA NITROGEN 21 mg/dL (7-18); CALCIUM 9.2 mg/dL (8.5-10.1); CHLORIDE 96 mmol/L (98-107); CO2 30 mmol/L (21-32); CREATININE 1.3 mg/dL (0.55-1.3); GLUCOSE,RANDOM 241 mg/dL (74-106); SGOT/AST 27 U/L (15-37); SGPT/ALT 36 U/L (13-61); SODIUM 136 mmol/L (136-145); TOT PROT 7.4 g/dl (6.4-8.2)
[2018-06-24] MEDS: metFORMIN HCL 500 MG TABLET (FP) PO SCH ×2 (08:12→16:36)
[2018-06-24] MEDS: INSULIN SLIDING SCALE (NOVOLOG) 1 VIAL SQ SCH ×4 (08:12→21:38)
[2018-06-24] MEDS ORDERED: REGADENOSON 0.4 MG/5 ML PRE-FILLED SYRINGE IVPUSH ONE ×2 (10:09→10:30)
[2018-06-24] MEDS: BUDESONIDE/FORMETEROL FUMARATE 160/4.5 mcg INHALER IH SCH ×2 (10:10→21:39)
--- NOTE | 2018-06-24 11:54 | CON.PULM ---
Consult Consult Specialty:: PULMONARY Referred by:: Dr Chen Reason for Consultation:: asthma - History of Present Illness Chief Complaint: chest pain History of Present Illness: 53yo female with h/o HTN, DM, COPD who was admitted with chest pain and worsening shortness of breath. States chest pain described as pressure like associated with shortness of breath, nausea and headache. She took her blood pressure and her SBP was consistently over 200. No cough or wheezing. No fevers , chills or sweats. Also reports orthopnea which she never experienced before. She is maintained at home on Spiriva and Symbicort, quit smoking in 2006 and was a light smoker previously. - History Source History Provided By: Patient, Medical Record Limitations to Obtaining History: No Limitations - Past Medical History Cardio/Vascular: Yes: HTN, Hyperlipdemia Pulmonary: Yes: Asthma - Past Surgical History Past Surgical History: Yes: Hernia Repair, Joint Replacement (RT TKR) - Alcohol/Substance Use Hx Alcohol Use: No - Smoking History Smoking history: Never smoked Have you smoked in the past 12 months: No Aproximately how many cigarettes per day: 0 If you are a former smoker, when did you quit?: 2006 Home Medications - Allergies Allergies/Adverse Reactions: Allergies Allergy/AdvReac Type Severity Reaction Status Date / Time fish derived Allergy Verified 06/23/18 06:14 No Known Drug Allergies Allergy Verified 06/23/18 18:45 shellfish derived Allergy Verified 06/23/18 06:14 MUSHROOMS Allergy Uncoded 06/23/18 06:14 - Home Medications Home Medications: Ambulatory Orders Losartan Potassium 25 mg PO DAILY 03/31/16 Montelukast Sodium [Singulair] 10 mg PO DAILY 03/31/16 Zolpidem Tartrate 10 mg PO HS 03/31/16 metFORMIN HCL [Metformin HCl] 500 mg PO DAILY 03/31/16 Budesonide/Formeterol Fumarate [SYMBICORT 160/4.5mcg -] 2 puff IH BID #1 inhaler 05/07/17 Aspirin 81 mg PO DAILY 06/23/18 Duloxetine HCl 30 mg PO HS 06/23/18 Furosemide [Lasix] 20 mg PO DAILY 06/23/18 Semaglutide [Ozempic] 0.25 mg SQ WEEKLY 06/23/18 Review of Systems - Review of Systems Constitutional: reports: Weakness. denies: Chills, Fever Eyes: denies: Recent Change in Vision HENT: denies: Nasal Congestion, Throat Pain Neck: denies: Stiffness, Tenderness Cardiovascular: reports: Chest Pain, Shortness of Breath. denies: Edema Respiratory: denies: Cough, Wheezing Gastrointestinal: reports: Nausea. denies: Abdominal Pain, Vomiting Genitourinary: denies: Dysuria, Hematuria Neurological: reports: Headache. denies: Dizziness Endocrine: denies: Unexplained Weight Loss Physical Exam Vital Sings: Vital Signs Temperature 97.9 F 06/24/18 06:00 Pulse Rate 81 06/24/18 06:00 Respiratory Rate 18 06/24/18 06:00 Blood Pressure 133/75 06/24/18 06:00 O2 Sat by Pulse Oximetry (%) 90 L 06/24/18 03:13 Constitutional: Yes: Calm Eyes: Yes: Conjunctiva Clear, EOM Intact HENT: Yes: Atraumatic, Normocephalic Neck: Yes: Supple, Trachea Midline Cardiovascular: Yes: Regular Rate and Rhythm Respiratory: Yes: Diminished (decreased breath sounds at the bases) ...Clubbing: No Gastrointestinal: Yes: Normal Bowel Sounds, Soft. No: Tenderness Edema: No Labs: CBC, BMP 06/24/18 05:15 06/24/18 05:15 Imaging - Results Chest X-ray: Report Reviewed, Image Reviewed (no infiltrates) Problem List - Problems (1) Chest pain Code(s): R07.9 - CHEST PAIN, UNSPECIFIED Qualifiers: Chest pain type: unspecified Qualified Code(s): R07.9 - Chest pain, unspecified (2) Diabetes Code(s): E11.9 - TYPE 2 DIABETES MELLITUS WITHOUT COMPLICATIONS (3) HTN (hypertension) Code(s): I10 - ESSENTIAL (PRIMARY) HYPERTENSION Assessment/Plan Chest Pain ?Hypertensive Urgency COPD HTN DM - f/u stress test - resume home Symbicort, Spiriva - inhaled bronchodilators - less likely pulmonary etiology of chest pain - BP control - outpt PFTs and PSG - DVT prophylaxis
[2018-06-24] MEDS: LOSARTAN POTASSIUM 50 MG TABLET (FP) PO SCH (12:00)
[2018-06-24] MEDS: HEPARIN NA (PORCINE) 5,000 UNITS/ML 1ML VIAL SQ SCH ×2 (12:07→21:38)
[2018-06-24] MEDS: ASPIRIN 81 MG CHEWABLE TABLETS PO SCH (12:09)
[2018-06-24] MEDS: HYDROCHLOROTHIAZIDE 25 MG TABLET (FP) PO SCH (12:11)
--- NOTE | 2018-06-24 12:22 | ECHO ---
Name: TARSHA SMITH Exam:Adult Echocardiogram Study Date: 06/24/2018 08:24 AM Age: 53 yrs Reason For Study: Chest pain Height: 61 in Weight: 250 lb BSA: 2.1 m2 MMode/2D Measurements & Calculations IVSd: 1.4 cm Ao root diam: 2.2 cm LVIDd: 4.0 cm LA dimension: 3.1 cm LVIDs: 2.4 cm LVPWd: 1.0 cm EDV(Teich): 70.3 ml LVOT diam: 2.0 cm ESV(Teich): 21.2 ml Doppler Measurements & Calculations MV E max yaya: 125.0 cm/sec Ao V2 max: 188.7 cm/sec MV A max yaya: 88.8 cm/sec Ao max P.2 mmHg MV E/A: 1.4 Ao V2 mean: 122.1 cm/sec MV dec time: 0.12 sec Ao mean P.1 mmHg Ao V2 VTI: 31.4 cm SHANA(V,D): 2.4 cm2 LV V1 max P.5 mmHg PA V2 max: 127.6 cm/sec LV V1 max: 146.0 cm/sec PA max P.5 mmHg Med Peak E' Yaya: 5.2 cm/sec PI Vmax: 107.9 cm/sec Med E/e': 23.9 Lat Peak E' Yaya: 7.5 cm/sec Lat E/e': 16.7 Procedure A two-dimensional transthoracic echocardiogram with color flow and Doppler was performed. The patient was in normal sinus rhythm during the exam. Left Ventricle Left ventricular systolic function is normal. Ejection Fraction = 65%. E/A reversal consistent with b ut not diagnostic of poor LV compliance. Right Ventricle The right ventricle is normal in size and function. Atria The left atrial size is normal. Right atrial size is normal. Mitral Valve The mitral valve is normal. There is mild mitral regurgitation. Tricuspid Valve The tricuspid valve is normal. No tricuspid regurgitation. Aortic Valve There is mild aortic sclerosis.;. The aortic valve is trileaflet. The aortic valve opens well. No hemodynamically significant valvular aortic stenosis. Trace aortic regurgitation. Pulmonic Valve The pulmonic valve is not well seen, but is grossly normal. There is no pulmonic valvular regurgitati on. Great Vessels The aortic root is normal size. Pericardium/Pleura There is no pericardial effusion. Interpretation Summary Left ventricular systolic function is normal. E/A reversal consistent with but not diagnostic of poor LV compliance The right ventricle is normal in size and function. There is mild mitral regurgitation. There is mild aortic sclerosis.; Trace aortic regurgitation. There is no pericardial effusion. MD Montana Grant 06/24/2018 12:22 PM
[2018-06-24] MEDS ORDERED: SUMATRIPTAN SUCCINATE 6 MG/0.5 ML VIAL SQ ONE (12:40)
--- NOTE | 2018-06-24 12:41 | PN ---
Progress Note (short form) - Note Progress Note: s: feels better today, no chest pain, palps, breathing feels better. Current Medications Albuterol/Ipratropium (Duoneb -) 1 amp NEB Q6H PRN PRN Reason: SHORTNESS OF BREATH Last Admin: 06/24/18 07:30 Dose: 1 amp Aspirin (Asa -) 81 mg PO DAILY [facility] Last Admin: 06/24/18 12:09 Dose: 81 mg Budesonide/Formoterol Fumarate (Symbicort 160/4.5mcg -) 2 puff IH BID [facility] Last Admin: 06/24/18 10:10 Dose: 2 puff Duloxetine HCl (Cymbalta -) 30 mg PO HS [facility] Last Admin: 06/23/18 22:05 Dose: 30 mg Heparin Sodium (Porcine) (Heparin -) 5,000 unit SQ BID [facility] Last Admin: 06/24/18 12:07 Dose: 5,000 unit Hydrochlorothiazide (Hctz -) 25 mg PO DAILY [facility] Last Admin: 06/24/18 12:11 Dose: 25 mg Insulin Aspart (Novolog Vial Sliding Scale -) 1 vial SQ ACHS [facility]; Protocol Last Admin: 06/24/18 12:10 Dose: 4 units Losartan Potassium (Cozaar -) 100 mg PO DAILY [facility] Last Admin: 06/24/18 12:00 Dose: 100 mg Metformin HCl (Glucophage -) 1,000 mg PO BID@0700,1630 [facility] Last Admin: 06/24/18 08:12 Dose: Not Given Methylprednisolone Sodium Succinate (Solu-Medrol -) 40 mg IVPUSH Q8H-IV [facility] Last Admin: 06/24/18 12:07 Dose: 40 mg Metoprolol Succinate (Toprol Xl -) 50 mg PO DAILY [facility] Last Admin: 06/24/18 12:08 Dose: 50 mg Montelukast Sodium (Singulair -) 10 mg PO [facility] Rosuvastatin Calcium (Crestor -) 10 mg PO HS [facility] Last Admin: 06/23/18 22:05 Dose: 10 mg Tiotropium [place] (Spiriva Respimat) 2 puff IH DAILY [facility] Vital Signs: Vital Signs Period Temp Pulse Resp BP Sys/Lee Pulse Ox Last 24 Hr 97.9 F-98.8 F 81-110 16-18 133-142/75-90 90-97 Constitutional: Yes: No Distress, Calm Eyes: Yes: Conjunctiva Clear, EOM Intact HENT: Yes: Atraumatic, Normocephalic Neck: Yes: Supple, Trachea Midline Respiratory: Yes: Regular, CTA Bilaterally Gastrointestinal: Yes: Normal Bowel Sounds, Soft Cardiovascular: Yes: Regular Rate and Rhythm JVD: No Carotid Bruit: No PMI: Non-Displaced Heart Sounds: Yes: S1, S2 Musculoskeletal: No: Back Pain Extremities: No: Cold Edema: No Peripheral Pulses WNL: Yes Peripheral Pulses: 2+ Left Doralis Pedis, 2+ Right Dorsalis Pedis Integumentary: No: Jaundice Neurological: Yes: Alert, Oriented Psychiatric: No: Agitated - Other Data Labs, Other Data: CBC, BMP 06/23/18 06:24 06/23/18 06:24 INR, PTT INR 1.03 (0.83-1.09) 06/23/18 06:24 Troponin, BNP 06/23/18 06/23/18 06:24 06:24 Troponin I < 0.02 B-Natriuretic Peptide 59.3 Troponin, BNP 06/23/18 06/23/18 06:24 06:24 Troponin I < 0.02 B-Natriuretic Peptide 59.3 Assessment/Plan EKG: sinus, nl intervals, no ischemic changes CXR: no acute process echo 06/2018: nl LV function, E/A reversal, mild MR, mild ao sclerosis, tr AR, nl RV 53 year old female with PMH of COPD, IDDM, and CHF presenting with three days of headache and one day of chest pain with SOB Chest pain, sob - EKG no ischemic changes, trop neg x 2 - cp resolved today - echo unremarkable - nuclear pharm stress done today, read pending. if benign findings, no further cardiac workup as inpatient HTN - stable - cont metoprolol, losartan/HCTZ, amlodipine - hold lasix, appears euvolemic DM - manage per primary HLD - cont statin COPD - manage per primary
--- NOTE | 2018-06-24 12:43 | CONSULT ---
Consult - text type - Consultation Consultation Note: NEUROLOGY CONSULT APPRECIATED: This 53 yo RH single woman with 2 boys (21, 25) with pmhx HTN, DM, asthma/COPD, former smoker, and chronic pain. Pt. examined with her son at the bedside (who also has episodic headaches and chronic, nocturnal leg pains). Maintained on losartan, montelukast, zolpidem, metformin, symbicort, ASA, duloxetine, furosemide, ozempic, metoprlol ER 50 mg qd. Surgical hx significant for R TKR and L4-L5 laminectomy in age 20s, with minimal , transient, improvement in chronic, predominately nocturnal, leg pain. Reports history of "sinus" headaches with pressure in face attributed to seasonal changes since age 30s. Recent worsening of headache described as "head exploding" in bi-lateral temples since 06/19/18 with associated photophobia, phonophobia, N/V, kinesiophobia attributed to change in Insulin medication and "High blood pressure." Now admitted after 4 days of persistent headache and photophobia, promptly responding to SQ sumatriptan in the ED. Reports long history of insomnia and nocturnal "pains" and "numbness" in low back and R knee, prompting her to have surgery and continue pain management. Now with predominate L knee pain and "tingling" in L hand. Currently seeing Dr. Figueredo for pain management for epidurals with limited relief. Admits to personal history of growing pains as well as both her sons. ++FH mother with migraines. Denies bruxism. Head CT (reviewed): essentially normal study MCV 83.9 AFSANEH: Mod obese. 245 lb. Cor reg. No bruit. Neck supple. Neg SLR. Well-healed LS scar. + Tinel's on L. NEURO: Awake, alert, cooperative with exam. Ox x 3. EOM intact with full friedman appreciated. No facial. Motor: No drift. Strength normal. Reflexes normal and symmetric. Plantars silent. Coordination: No FTN dystaxia. Sensation: Normal to vibration. Romberg - Gait: Normal including toes, heels, tandem. Impression: 1. Essentially normal neurological exam 2. Migraine Headaches 3. R/O L Carpal Tunnel Syndrome (CTS) 4. Nocturnal paresthesia, insomnia, hx of "growing pains" suggestive of Restless Limbs Syndrome (RLS) Suggest: Provide sumatriptan 6 mg SQ x 1, then sumatriptan 100 mg prn for acute migraine Start topiramate 25 mg BID x 1 week, then increase to 50 mg BID for migraine prophylaxis. Continue metoprolol for the same indication. Start pramipexole 0.25 mg po qhs\\ Await Iron Studies Advise headache calendar for patient Neuro f/u as out-patient for nerve studies (EMG/NCS) of L arm, L leg and further management of migraines and RLS Thank you very much, Luciano Alicea MD
[2018-06-24] MEDS: TIOTROPIUM BROMIDE 2.5 MCG (SPIRIVA) RESPIMAT INHALER IH SCH (13:00)
[2018-06-24] MEDS ORDERED: SUMAtriptan SUCCINATE 50 MG TABLET PO ONE (13:11)
--- NOTE | 2018-06-24 18:03 | PN ---
Progress Note, Physician History of Present Illness: No further chest pain - Current Medication List Current Medications: Active Medications Albuterol/Ipratropium (Duoneb -) 1 amp NEB Q6H PRN PRN Reason: SHORTNESS OF BREATH Last Admin: 06/24/18 16:18 Dose: 1 amp Aspirin (Asa -) 81 mg PO DAILY [facility] Last Admin: 06/24/18 12:09 Dose: 81 mg Budesonide/Formoterol Fumarate (Symbicort 160/4.5mcg -) 2 puff IH BID [facility] Last Admin: 06/24/18 10:10 Dose: 2 puff Duloxetine HCl (Cymbalta -) 30 mg PO HS [facility] Last Admin: 06/23/18 22:05 Dose: 30 mg Heparin Sodium (Porcine) (Heparin -) 5,000 unit SQ BID [facility] Last Admin: 06/24/18 12:07 Dose: 5,000 unit Hydrochlorothiazide (Hctz -) 25 mg PO DAILY [facility] Last Admin: 06/24/18 12:11 Dose: 25 mg Insulin Aspart (Novolog Vial Sliding Scale -) 1 vial SQ [facility]; Protocol Last Admin: 06/24/18 16:59 Dose: 4 units Losartan Potassium (Cozaar -) 100 mg PO DAILY [facility] Last Admin: 06/24/18 12:00 Dose: 100 mg Metformin HCl (Glucophage -) 1,000 mg PO BID@0700,1630 [facility] Last Admin: 06/24/18 16:36 Dose: 1,000 mg Methylprednisolone Sodium Succinate (Solu-Medrol -) 40 mg IVPUSH Q8H-IV [facility] Last Admin: 06/24/18 17:24 Dose: 40 mg Metoprolol Succinate (Toprol Xl -) 50 mg PO DAILY [facility] Last Admin: 06/24/18 12:08 Dose: 50 mg Montelukast Sodium (Singulair -) 10 mg PO [facility] Pramipexole Dihydrochloride (Mirapex -) 0.25 mg PO [facility] Rosuvastatin Calcium (Crestor -) 10 mg PO HS [facility] Last Admin: 06/23/18 22:05 Dose: 10 mg Tiotropium [place] (Spiriva Respimat) 2 puff IH DAILY [facility] Last Admin: 06/24/18 13:00 Dose: 2 puff Topiramate (Topamax -) 25 mg PO BID [facility] Vital Signs: Vital Signs Temperature 98.1 F 06/24/18 14:19 Pulse Rate 98 H 06/24/18 14:19 Respiratory Rate 18 06/24/18 14:19 Blood Pressure 132/48 L 06/24/18 14:19 O2 Sat by Pulse Oximetry (%) 100 06/24/18 09:00 Neck: Yes: WNL, Supple Cardiovascular: Yes: WNL, Regular Rate and Rhythm Respiratory: Yes: WNL, Regular, CTA Bilaterally Gastrointestinal: Yes: WNL, Normal Bowel Sounds, Soft Labs: CBC, BMP 06/24/18 05:15 06/24/18 05:15 INR, PTT INR 1.03 (0.83-1.09) 06/23/18 06:24 Problem List - Problems (1) Chest pain Assessment/Plan: Await results of stress test DC planning for am Cont asa/statin Code(s): R07.9 - CHEST PAIN, UNSPECIFIED Qualifiers: Chest pain type: unspecified Qualified Code(s): R07.9 - Chest pain, unspecified (2) Asthma with acute exacerbation in adult Assessment/Plan: Cont symbicort/nebulizers DC solumedrol Code(s): J45.901 - UNSPECIFIED ASTHMA WITH (ACUTE) EXACERBATION Qualifiers: Asthma severity: moderate Asthma persistence: persistent Qualified Code(s ): J45.41 - Moderate persistent asthma with (acute) exacerbation (3) Diabetes Assessment/Plan: Cont sliding scale w/ coverage Cont metformin Code(s): E11.9 - TYPE 2 DIABETES MELLITUS WITHOUT COMPLICATIONS (4) HTN (hypertension) Assessment/Plan: BP stable Cont losartan/hctz Code(s): I10 - ESSENTIAL (PRIMARY) HYPERTENSION (5) Headache Assessment/Plan: Cont topimax CT scan head unremarkable Code(s): R51 - HEADACHE (6) Restless leg syndrome Assessment/Plan: Cont mirapex Code(s): G25.81 - RESTLESS LEGS SYNDROME (7) Morbid obesity Code(s): E66.01 - MORBID (SEVERE) OBESITY DUE TO EXCESS CALORIES (8) HLD (hyperlipidemia) Assessment/Plan: Cont crestor Code(s): E78.5 - HYPERLIPIDEMIA, UNSPECIFIED
[2018-06-24] MEDS ORDERED: PT OWN MED DRAWER 7, Y5N ONE (21:27)
[2018-06-24] MEDS: TOPIRAMATE 25 MG TABLET (FP) PO SCH (21:38)
[2018-06-24] MEDS: DULoxetine HCL 30 MG CAPSULE.DR (FP) PO SCH (21:38)
[2018-06-24] MEDS: ROSUVASTATIN CA 10 MG TABLET (FP) PO SCH (21:38)
[2018-06-24] MEDS ORDERED: MONTELUKAST NA 10 MG TABLET PO SCH (22:00)
[2018-06-24] MEDS ORDERED: PRAMIPEXOLE DIHYDROCHLORIDE 0.25 MG TABLET PO SCH (22:00)
[2018-06-25 04:13] LABS: SERUM IRON SATURATION 17 % (15-55); TOTAL IRON BINDING CAPACITY 359 ug/dL (250-450); UIBC 298 ug/dL (131-425)
[2018-06-25] MEDS: INSULIN SLIDING SCALE (NOVOLOG) 1 VIAL SQ SCH ×3 (06:37→17:03)
[2018-06-25] MEDS: metFORMIN HCL 500 MG TABLET (FP) PO SCH ×2 (06:37→17:02)
[2018-06-25] MEDS: ALBUTEROL SO4 2.5/IPRATROPIUM 0.5 INH SOL 3 ML VIAL.NEB. NEB PRN ×3 (08:13→15:43)
[2018-06-25] MEDS: LOSARTAN POTASSIUM 50 MG TABLET (FP) PO SCH (09:35)
[2018-06-25] MEDS: ASPIRIN 81 MG CHEWABLE TABLETS PO SCH (09:35)
[2018-06-25] MEDS: TOPIRAMATE 25 MG TABLET (FP) PO SCH (09:36)
[2018-06-25] MEDS: HYDROCHLOROTHIAZIDE 25 MG TABLET (FP) PO SCH (09:36)
[2018-06-25] MEDS: HEPARIN NA (PORCINE) 5,000 UNITS/ML 1ML VIAL SQ SCH (09:36)
[2018-06-25] MEDS: BUDESONIDE/FORMETEROL FUMARATE 160/4.5 mcg INHALER IH SCH (09:37)
[2018-06-25] MEDS: TIOTROPIUM BROMIDE 2.5 MCG (SPIRIVA) RESPIMAT INHALER IH SCH (09:37)
--- NOTE | 2018-06-25 10:02 | PN ---
Progress Note (short form) - Note Progress Note: s: feels better today, no chest pain, palps, dyspnea, dizziness Current Medications Albuterol/Ipratropium (Duoneb -) 1 amp NEB Q6H PRN PRN Reason: SHORTNESS OF BREATH Last Admin: 06/25/18 08:13 Dose: 1 amp Aspirin (Asa -) 81 mg PO DAILY [facility] Last Admin: 06/25/18 09:35 Dose: 81 mg Budesonide/Formoterol Fumarate (Symbicort 160/4.5mcg -) 2 puff IH BID [facility] Last Admin: 06/25/18 09:37 Dose: 2 puff Duloxetine HCl (Cymbalta -) 30 mg PO [facility] Last Admin: 06/24/18 21:38 Dose: 30 mg Heparin Sodium (Porcine) (Heparin -) 5,000 unit SQ BID [facility] Last Admin: 06/25/18 09:36 Dose: 5,000 unit Hydrochlorothiazide (Hctz -) 25 mg PO DAILY [facility] Last Admin: 06/25/18 09:36 Dose: 25 mg Insulin Aspart (Novolog Vial Sliding Scale -) [address] [facility]; Protocol Last Admin: 06/25/18 06:37 Dose: 2 units Losartan Potassium (Cozaar -) 100 mg PO DAILY [facility] Last Admin: 06/25/18 09:35 Dose: 100 mg Metformin HCl (Glucophage -) 1,000 mg PO BID@0700,1630 [facility] Last Admin: 06/25/18 06:37 Dose: 1,000 mg Metoprolol Succinate (Toprol Xl -) 50 mg PO DAILY [facility] Last Admin: 06/25/18 09:36 Dose: 50 mg Montelukast Sodium (Singulair -) 10 mg PO HS [facility] Last Admin: 06/24/18 21:38 Dose: 10 mg Pramipexole Dihydrochloride (Mirapex -) 0.25 mg PO [facility] Last Admin: 06/24/18 21:39 Dose: 0.25 mg Rosuvastatin Calcium (Crestor -) 10 mg PO [facility] Last Admin: 06/24/18 21:38 Dose: 10 mg Tiotropium [place] (Spiriva Respimat) 2 puff IH DAILY [facility] Last Admin: 06/25/18 09:37 Dose: 2 puff Topiramate (Topamax -) 25 mg PO BID [facility] Last Admin: 06/25/18 09:36 Dose: 25 mg Vital Signs: Vital Signs Period Temp Pulse Resp BP Sys/Lee Pulse Ox Last 24 Hr 98 F-98.8 F 83-98 18-20 118-154/48-80 90-97 Constitutional: Yes: No Distress, Calm Eyes: Yes: Conjunctiva Clear, EOM Intact HENT: Yes: Atraumatic, Normocephalic Neck: Yes: Supple, Trachea Midline Respiratory: Yes: Regular, CTA Bilaterally Gastrointestinal: Yes: Normal Bowel Sounds, Soft Cardiovascular: Yes: Regular Rate and Rhythm JVD: No Carotid Bruit: No PMI: Non-Displaced Heart Sounds: Yes: S1, S2 Musculoskeletal: No: Back Pain Extremities: No: Cold Edema: No Peripheral Pulses WNL: Yes Peripheral Pulses: 2+ Left Doralis Pedis, 2+ Right Dorsalis Pedis Integumentary: No: Jaundice Neurological: Yes: Alert, Oriented Psychiatric: No: Agitated Assessment/Plan EKG: sinus, nl intervals, no ischemic changes CXR: no acute process echo 06/2018: nl LV function, E/A reversal, mild MR, mild ao sclerosis, tr AR, nl RV mibi 06/2018: no ischemia, nl EF 53 year old female with PMH of COPD, IDDM, and CHF presenting with three days of headache and one day of chest pain with SOB Chest pain, sob - EKG no ischemic changes, trop neg x 2 - cp resolved today - echo unremarkable - nuclear pharm stress no ischemia - no further cardiac workup as inpatient - dc tele HTN - stable - cont metoprolol, losartan/HCTZ, amlodipine - hold lasix, appears euvolemic DM - manage per primary HLD - cont statin COPD - manage per primary
--- NOTE | 2018-06-25 11:46 | PN ---
Progress Note, Physician History of Present Illness: PULMONARY ALERT,LESS DYSPNEIC,-CP - Current Medication List Current Medications: Active Medications Albuterol/Ipratropium (Duoneb -) 1 amp NEB Q6H PRN PRN Reason: SHORTNESS OF BREATH Last Admin: 06/25/18 08:13 Dose: 1 amp Aspirin (Asa -) 81 mg PO DAILY [facility] Last Admin: 06/25/18 09:35 Dose: 81 mg Budesonide/Formoterol Fumarate (Symbicort 160/4.5mcg -) 2 puff IH BID [facility] Last Admin: 06/25/18 09:37 Dose: 2 puff Duloxetine HCl (Cymbalta -) 30 mg PO [facility] Last Admin: 06/24/18 21:38 Dose: 30 mg Heparin Sodium (Porcine) (Heparin -) 5,000 unit SQ BID [facility] Last Admin: 06/25/18 09:36 Dose: 5,000 unit Hydrochlorothiazide (Hctz -) 25 mg PO DAILY [facility] Last Admin: 06/25/18 09:36 Dose: 25 mg Insulin Aspart (Novolog Vial Sliding Scale -) 1 vial SQ [facility]; Protocol Last Admin: 06/25/18 11:28 Dose: Not Given Losartan Potassium (Cozaar -) 100 mg PO DAILY [facility] Last Admin: 06/25/18 09:35 Dose: 100 mg Metformin HCl (Glucophage -) 1,000 mg PO BID@0700,1630 [facility] Last Admin: 06/25/18 06:37 Dose: 1,000 mg Metoprolol Succinate (Toprol Xl -) 50 mg PO DAILY [facility] Last Admin: 06/25/18 09:36 Dose: 50 mg Montelukast Sodium (Singulair -) 10 mg PO [facility] Last Admin: 06/24/18 21:38 Dose: 10 mg Pramipexole Dihydrochloride (Mirapex -) 0.25 mg PO [facility] Last Admin: 06/24/18 21:39 Dose: 0.25 mg Rosuvastatin Calcium (Crestor -) 10 mg PO [facility] Last Admin: 06/24/18 21:38 Dose: 10 mg Tiotropium [place] (Spiriva Respimat) 2 puff IH DAILY [facility] Last Admin: 06/25/18 09:37 Dose: 2 puff Topiramate (Topamax -) 25 mg PO BID [facility] Last Admin: 06/25/18 09:36 Dose: 25 mg - Objective Vital Signs: Vital Signs Temperature 98 F 06/25/18 09:00 Pulse Rate 90 06/25/18 09:00 Respiratory Rate 20 06/25/18 09:00 Blood Pressure 154/80 06/25/18 09:00 O2 Sat by Pulse Oximetry (%) 90 L 06/25/18 09:00 Constitutional: Yes: Well Nourished, Calm Eyes: Yes: WNL HENT: Yes: WNL Neck: Yes: WNL Cardiovascular: Yes: Regular Rate and Rhythm, S1, S2 Respiratory: Yes: Wheezes (FEW SCATTERED GERALD WHEEZES) Gastrointestinal: Yes: Normal Bowel Sounds, Soft Extremities: Yes: WNL Edema: No Labs: CBC, BMP 06/24/18 05:15 06/24/18 05:15 INR, PTT INR 1.03 (0.83-1.09) 06/23/18 06:24 Problem List - Problems (1) SOB (shortness of breath) Code(s): R06.02 - SHORTNESS OF BREATH (2) Asthma Code(s): J45.909 - UNSPECIFIED ASTHMA, UNCOMPLICATED (3) Morbid obesity Code(s): E66.01 - MORBID (SEVERE) OBESITY DUE TO EXCESS CALORIES Assessment/Plan Problem List - Problems (1) Chest pain Code(s): R07.9 - CHEST PAIN, UNSPECIFIED Qualifiers: Chest pain type: unspecified Qualified Code(s): R07.9 - Chest pain, unspecified (2) Diabetes Code(s): E11.9 - TYPE 2 DIABETES MELLITUS WITHOUT COMPLICATIONS (3) HTN (hypertension) Code(s): I10 - ESSENTIAL (PRIMARY) HYPERTENSION Assessment/Plan Chest Pain ?Hypertensive Urgency COPD HTN DM - Symbicort, Spiriva - inhaled bronchodilators - BP control - outpt PFTs and PSG - DVT prophylaxis DR SEGURA
[2018-06-25 14:05] VITALS: BP 146/75; PULSE 94; TEMP 98.4
== END 2018-06-25 19:16 | disposition home or self-care (01) | DRG 202 ==
LOC: JER 05:44 → JERBED 07:37 → J4W 06-24 02:25
PROVIDERS: ADMIT Internal Medicine; ATTEND Internal Medicine
DX: J45.41 Moderate persistent asthma with (acute) exacerbation (principal); Z68.42 Body mass index [BMI] 45.0-49.9, adult; E66.01 Morbid (severe) obesity due to excess calories; R07.9 Chest pain, unspecified; J44.9 Chronic obstructive pulmonary disease, unspecified; E11.9 Type 2 diabetes mellitus without complications; I10 Essential (primary) hypertension; E78.5 Hyperlipidemia, unspecified; I16.0 Hypertensive urgency
CPT/HCPCS: 36415; 70450-TC; 71046-TC-FY; 78452-TC; 80053; 82550; 82962; 83036; 83540; 83550; 83735; 83880; 84484; 85025; 85610; 85730; 93005; 93010; 93017; 93306-TC; 94640; 99284-25; 99285-25; A9502; J0131; J1644; J2785

== ENCOUNTER 2020-11-09 16:50 | Inpatient (IN) | payer OTHER ==
[2020-11-09] MEDS ORDERED: DEXAMETHASONE SOD PHOSPHATE 4 MG/1 ML VIAL IVPUSH ONE (17:22)
[2020-11-09] MEDS ORDERED: DEXAMETHASONE SOD PHOSPHATE 4 MG/1 ML VIAL ONE (17:23)
[2020-11-09 18:51] LABS: VENOUS BASE EXCESS -4.4 mmol/L (-2-2); VENOUS O2 SATURATION 33.8 % (70-80); VENOUS PCO2 47.3 mmHg (38-52); VENOUS PH 7.29 (7.310-7.410)
[2020-11-09] MEDS ORDERED: AZITHROMYCIN IVPB 500 MG in DEXTROSE 5%-WATER - 250 ML IVPB ONE (18:51)
[2020-11-09 18:53] LABS: BASO % 0.1 % (0-2.0); HEMATOCRIT 34.9 % (32.4-45.2); HEMOGLOBIN 11.6 GM/dL (10.7-15.3); LYMPH % 4.7 % (8-40); MCH 27.4 pg (25.7-33.7); MCHC 33.3 g/dl (32.0-36.0); MEAN CELL VOLUME 82.2 fl (80-96); MONO % 4.1 % (3.8-10.2); NEUT % 91.1 % (42.8-82.8); PLATELET COUNT 349 10^3/uL (134-434); RBC 4.25 M/mm3 (3.60-5.2); RDW 15.1 % (11.6-15.6); WHITE BLOOD COUNT 12.8 K/mm3 (4.0-10.0)
[2020-11-09] MEDS ORDERED: AZITHROMYCIN IVPB 500 MG/250 ML BAG IVPB ONE (18:54)
[2020-11-09 19:02] LABS: INR 1.1 (0.83-1.09); PROTHROMBIN TIME (PATIENT) 13.5 SEC (9.7-13.0)
[2020-11-09 19:05] LABS: ACTIVATED PTT 28.3 SECONDS (25.2-36.5)
[2020-11-09 19:21] LABS: CHLORIDE 101 mmol/L (98-107); SODIUM 139 mmol/L (136-145)
[2020-11-09 19:26] LABS: ALBUMIN 2.8 g/dl (3.4-5.0); ANION GAP 16 MMOL/L (8-16); CALCIUM 8.7 mg/dL (8.5-10.1); CO2 21 mmol/L (21-32)
[2020-11-09 19:27] LABS: BLOOD UREA NITROGEN 88.9 mg/dL (7-18); GLUCOSE,RANDOM 150 mg/dL (74-106)
[2020-11-09 19:28] LABS: SGPT/ALT 21 U/L (13-61)
[2020-11-09 19:29] LABS: BILIRUBIN,TOTAL 0.3 mg/dL (0.2-1)
[2020-11-09 19:30] LABS: ALK PHOS 111 U/L (45-117); CREATININE 3.8 mg/dL (0.55-1.3); SGOT/AST 27 U/L (15-37); TOT PROT 7.7 g/dl (6.4-8.2)
[2020-11-09 19:31] LABS: BILIRUBIN,DIRECT 0.2 mg/dL (0.0-0.2)
[2020-11-09 19:46] LABS: ANISOCYTOSIS 0; MACROCYTOSIS 0; PLATELET ESTIMATE NORMAL
[2020-11-09 19:47] LABS: LACTIC ACID 2.7 mmol/L (0.4-2.0)
[2020-11-09] MEDS ORDERED: SODIUM CHLORIDE 0.9% 500 ML INFUS.BAG IV ONE (19:48)
[2020-11-09 20:25] LABS: LDH 467 U/L (84-246)
[2020-11-09 23:04] LABS: URINE APPEARANCE CLEAR; URINE BILIRUBIN NEGATIVE (NEGATIVE); URINE COLOR YELLOW; URINE GLUCOSE (UA) NEGATIVE (NEGATIVE); URINE KETONE TRACE (NEGATIVE); URINE LEUK ESTERASE NEGATIVE (NEGATIVE); URINE NITRITE NEGATIVE (NEGATIVE); URINE PROTEIN NEGATIVE (NEGATIVE); URINE UROBILINOGEN 0.2 mg/dL (0.2-1.0)
[2020-11-10] MEDS ORDERED: ALBUTEROL SO4 HFA INHALER IH PRN (02:27)
[2020-11-10] MEDS ORDERED: SODIUM CHLORIDE 0.45% 1,000 ML IV SCH (02:30)
[2020-11-10] MEDS ORDERED: cefTRIAXone SODIUM 1 GM VIAL ONE ×2 (03:02→10:14)
[2020-11-10] MEDS ORDERED: DEXTROSE 5%-WATER - 50 ML IVPB ONE ×2 (03:02→10:14)
[2020-11-10] MEDS: CEFTRIAXONE 1 GM in DEXTROSE 5%-WATER - 50 ML IVPB SCH ×2 (03:52→10:24)
[2020-11-10] MEDS: metFORMIN HCL 500 MG TABLET (FP) PO SCH ×2 (06:49→16:06)
[2020-11-10] MEDS: INSULIN SLIDING SCALE (NOVOLOG) 1 VIAL SQ SCH ×4 (06:49→22:23)
[2020-11-10 08:04] LABS: BASO % 0.1 % (0-2.0); HEMATOCRIT 35.1 % (32.4-45.2); HEMOGLOBIN 11.7 GM/dL (10.7-15.3); LYMPH % 8.8 % (8-40); MCH 27.9 pg (25.7-33.7); MCHC 33.5 g/dl (32.0-36.0); MEAN CELL VOLUME 83.2 fl (80-96); NEUT % 85.1 % (42.8-82.8); PLATELET COUNT 315 10^3/uL (134-434); RBC 4.21 M/mm3 (3.60-5.2); RDW 14.8 % (11.6-15.6); WHITE BLOOD COUNT 7.1 K/mm3 (4.0-10.0)
[2020-11-10 08:26] LABS: ALBUMIN 2.4 g/dl (3.4-5.0); BLOOD UREA NITROGEN 80.6 mg/dL (7-18)
[2020-11-10 08:30] LABS: CREATININE 2.2 mg/dL (0.55-1.3)
[2020-11-10 08:31] LABS: BILIRUBIN,TOTAL 0.4 mg/dL (0.2-1)
[2020-11-10 08:32] LABS: TOT PROT 6.7 g/dl (6.4-8.2)
[2020-11-10] MEDS ORDERED: DEXAMETHASONE 0.5 MG TABLET PO SCH (10:00)
[2020-11-10] MEDS ORDERED: PT OWN MED DRAWER 7, Y5N ONE ×3 (10:14→22:10)
[2020-11-10] MEDS: BUDESONIDE/FORMETEROL FUMARATE 160/4.5 mcg INHALER IH SCH ×2 (10:22→22:22)
[2020-11-10] MEDS: ZINC SULFATE 220 MG CAPSULE (FP) PO SCH ×2 (10:23→22:24)
[2020-11-10] MEDS: TOPIRAMATE 25 MG TABLET PO SCH ×2 (10:23→22:24)
[2020-11-10] MEDS: TIOTROPIUM BROMIDE 2.5 MCG (SPIRIVA) RESPIMAT INHALER IH SCH (10:23)
[2020-11-10] MEDS: ASCORBIC ACID 500 MG TABLET (FP) PO SCH ×2 (10:23→22:24)
[2020-11-10] MEDS: LOSARTAN POTASSIUM 50 MG TABLET PO SCH (10:23)
[2020-11-10] MEDS: DEXAMETHASONE SOD PHOSPHATE 4 MG/1 ML VIAL IVPUSH SCH (10:24)
[2020-11-10] MEDS: ASPIRIN 81 MG CHEWABLE TABLETS PO SCH (10:24)
[2020-11-10] MEDS: CHOLECALCIFEROL (VIT D3) 5000 UNITS (125 MCG) CAP PO SCH (10:25)
[2020-11-10] MEDS: AZITHROMYCIN IVPB 250 MG in DEXTROSE 5%-WATER - 250 ML IVPB SCH (11:47)
[2020-11-10] MEDS ORDERED: REMDESIVIR 200 MG in SODIUM CHLORIDE 250 ML IVPB ONE (14:00)
[2020-11-10] MEDS: ENOXAPARIN NA (PORCINE) 40 MG/0.4 ML DISP.SYRIN SQ SCH (14:10)
[2020-11-10] MEDS: PRAMIPEXOLE DIHYDROCHLORIDE 0.25 MG TABLET PO SCH (22:24)
[2020-11-10] MEDS: ROSUVASTATIN CA 10 MG TABLET (FP) PO SCH (22:24)
[2020-11-10] MEDS: DULoxetine HCL 30 MG CAPSULE.DR PO SCH (22:24)
[2020-11-10] MEDS: MONTELUKAST NA 10 MG TABLET PO SCH (22:24)
[2020-11-11] MEDS ORDERED: DEXTROSE 50%-WATER 25 GM/50 ML DISP.SYRIN IVPUSH PRN (00:31)
[2020-11-11] MEDS ORDERED: ONDANSETRON 4 MG/2 ML VIAL IVPUSH PRN ×2 (00:32→00:44)
[2020-11-11] MEDS ORDERED: DEXTROSE 5%-0.45% SALINE 1,000 ML IV SCH (00:45)
[2020-11-11] MEDS ORDERED: DEXTROSE 50%-WATER - 25 GM/50 ML VIAL IVPUSH ONE (00:45)
[2020-11-11] MEDS ORDERED: DEXTROSE 50%-WATER 25 GM/50 ML DISP.SYRIN IVPUSH ONE (00:45)
[2020-11-11] MEDS: ONDANSETRON 4 MG/2 ML VIAL IVPUSH PRN (00:55)
[2020-11-11] MEDS: INSULIN SLIDING SCALE (NOVOLOG) 1 VIAL SQ SCH ×4 (06:26→22:33)
[2020-11-11] MEDS ORDERED: DEXTROSE 50%-WATER 25 GM/50 ML DISP.SYRIN ONE ×2 (06:30→22:28)
[2020-11-11] MEDS: DEXTROSE 50%-WATER - 25 GM/50 ML VIAL IVPUSH PRN ×2 (06:31→22:31)
[2020-11-11 07:42] LABS: BASO % 0.1 % (0-2.0); HEMATOCRIT 34.5 % (32.4-45.2); HEMOGLOBIN 11.6 GM/dL (10.7-15.3); LYMPH % 10.8 % (8-40); MCH 27.7 pg (25.7-33.7); MCHC 33.7 g/dl (32.0-36.0); MEAN CELL VOLUME 82.4 fl (80-96); MEAN PLT VOLUME 7.9 fl (7.5-11.1); MONO % 3.6 % (3.8-10.2); NEUT % 85.5 % (42.8-82.8); PLATELET COUNT 378 10^3/uL (134-434); RBC 4.19 M/mm3 (3.60-5.2); RDW 14.6 % (11.6-15.6); WHITE BLOOD COUNT 9.3 K/mm3 (4.0-10.0)
[2020-11-11 08:03] LABS: CALCIUM 8.1 mg/dL (8.5-10.1)
[2020-11-11 08:04] LABS: ALBUMIN 2.2 g/dl (3.4-5.0); BLOOD UREA NITROGEN 58.1 mg/dL (7-18); MAGNESIUM 2.2 mg/dL (1.8-2.4)
[2020-11-11 08:05] LABS: CREATININE 1.4 mg/dL (0.55-1.3)
[2020-11-11 08:06] LABS: BILIRUBIN,TOTAL 0.2 mg/dL (0.2-1); PHOSPHOROUS 2.9 mg/dL (2.5-4.9); TOT PROT 6.2 g/dl (6.4-8.2)
[2020-11-11] MEDS ORDERED: cefTRIAXone SODIUM 1 GM VIAL ONE (09:11)
[2020-11-11] MEDS ORDERED: DEXTROSE 5%-WATER - 50 ML IVPB ONE (09:11)
[2020-11-11] MEDS ORDERED: PT OWN MED DRAWER 7, Y5N ONE ×3 (09:11→22:11)
[2020-11-11] MEDS: ASCORBIC ACID 500 MG TABLET (FP) PO SCH ×2 (09:14→22:33)
[2020-11-11] MEDS: ASPIRIN 81 MG CHEWABLE TABLETS PO SCH (09:14)
[2020-11-11] MEDS: ZINC SULFATE 220 MG CAPSULE (FP) PO SCH ×2 (09:15→22:33)
[2020-11-11] MEDS: TOPIRAMATE 25 MG TABLET PO SCH ×2 (09:15→22:32)
[2020-11-11] MEDS: LOSARTAN POTASSIUM 50 MG TABLET PO SCH (09:15)
[2020-11-11] MEDS: ENOXAPARIN NA (PORCINE) 40 MG/0.4 ML DISP.SYRIN SQ SCH (09:15)
[2020-11-11] MEDS: CEFTRIAXONE 1 GM in DEXTROSE 5%-WATER - 50 ML IVPB SCH (09:15)
[2020-11-11] MEDS: CHOLECALCIFEROL (VIT D3) 5000 UNITS (125 MCG) CAP PO SCH (09:16)
[2020-11-11] MEDS: DEXAMETHASONE SOD PHOSPHATE 4 MG/1 ML VIAL IVPUSH SCH (09:16)
[2020-11-11] MEDS: TIOTROPIUM BROMIDE 2.5 MCG (SPIRIVA) RESPIMAT INHALER IH SCH (09:16)
[2020-11-11] MEDS: BUDESONIDE/FORMETEROL FUMARATE 160/4.5 mcg INHALER IH SCH ×2 (09:17→22:33)
[2020-11-11] MEDS: AZITHROMYCIN IVPB 250 MG in DEXTROSE 5%-WATER - 250 ML IVPB SCH (09:17)
[2020-11-11] MEDS: BARICITINIB 2 MG TABLET PO SCH (12:16)
[2020-11-11] MEDS ORDERED: POTASSIUM CHLORIDE TABS 20 MEQ TABLET.ER (FP) PO ONE (13:17)
[2020-11-11] MEDS: REMDESIVIR 100 MG in SODIUM CHLORIDE 250 ML IVPB SCH (13:19)
[2020-11-11] MEDS: DEXTROSE 5%-0.45% SALINE 1,000 ML IV SCH (13:31)
[2020-11-11] MEDS: PRAMIPEXOLE DIHYDROCHLORIDE 0.25 MG TABLET PO SCH (22:32)
[2020-11-11] MEDS: MONTELUKAST NA 10 MG TABLET PO SCH (22:32)
[2020-11-11] MEDS: DULoxetine HCL 30 MG CAPSULE.DR PO SCH (22:32)
[2020-11-11] MEDS: ROSUVASTATIN CA 10 MG TABLET (FP) PO SCH (22:33)
[2020-11-12] MEDS ORDERED: DEXTROSE 50%-WATER 25 GM/50 ML DISP.SYRIN ONE (06:26)
[2020-11-12] MEDS: INSULIN SLIDING SCALE (NOVOLOG) 1 VIAL SQ SCH ×4 (06:31→21:30)
[2020-11-12] MEDS: DEXTROSE 50%-WATER - 25 GM/50 ML VIAL IVPUSH PRN (06:37)
[2020-11-12 07:46] LABS: ALBUMIN 2.2 g/dl (3.4-5.0); BLOOD UREA NITROGEN 35.4 mg/dL (7-18); CALCIUM 8.4 mg/dL (8.5-10.1); MAGNESIUM 2.2 mg/dL (1.8-2.4)
[2020-11-12 07:50] LABS: CREATININE 1.1 mg/dL (0.55-1.3)
[2020-11-12 07:51] LABS: BILIRUBIN,TOTAL 0.3 mg/dL (0.2-1); TOT PROT 6.6 g/dl (6.4-8.2)
[2020-11-12] MEDS ORDERED: DEXTROSE 5%-WATER - 50 ML IVPB ONE (09:43)
[2020-11-12] MEDS ORDERED: cefTRIAXone SODIUM 1 GM VIAL ONE (09:43)
[2020-11-12] MEDS ORDERED: PT OWN MED DRAWER 7, Y5N ONE ×3 (09:43→21:06)
[2020-11-12] MEDS: ENOXAPARIN NA (PORCINE) 40 MG/0.4 ML DISP.SYRIN SQ SCH (09:49)
[2020-11-12] MEDS: CEFTRIAXONE 1 GM in DEXTROSE 5%-WATER - 50 ML IVPB SCH (09:49)
[2020-11-12] MEDS: DEXAMETHASONE SOD PHOSPHATE 4 MG/1 ML VIAL IVPUSH SCH (09:50)
[2020-11-12] MEDS: LOSARTAN POTASSIUM 50 MG TABLET PO SCH (09:50)
[2020-11-12] MEDS: ZINC SULFATE 220 MG CAPSULE (FP) PO SCH ×2 (09:50→21:30)
[2020-11-12] MEDS: TOPIRAMATE 25 MG TABLET PO SCH ×2 (09:50→21:30)
[2020-11-12] MEDS: ASPIRIN 81 MG CHEWABLE TABLETS PO SCH (09:50)
[2020-11-12] MEDS: ASCORBIC ACID 500 MG TABLET (FP) PO SCH ×2 (09:50→21:30)
[2020-11-12] MEDS: TIOTROPIUM BROMIDE 2.5 MCG (SPIRIVA) RESPIMAT INHALER IH SCH (09:52)
[2020-11-12] MEDS: BUDESONIDE/FORMETEROL FUMARATE 160/4.5 mcg INHALER IH SCH ×2 (09:52→21:31)
[2020-11-12] MEDS: CHOLECALCIFEROL (VIT D3) 5000 UNITS (125 MCG) CAP PO SCH (09:52)
[2020-11-12] MEDS: BARICITINIB 2 MG TABLET PO SCH (09:53)
[2020-11-12] MEDS: ONDANSETRON 4 MG/2 ML VIAL IVPUSH PRN (10:49)
[2020-11-12] MEDS: AZITHROMYCIN IVPB 250 MG in DEXTROSE 5%-WATER - 250 ML IVPB SCH (11:45)
[2020-11-12] MEDS: APIXABAN 5 MG TABLET PO SCH ×2 (13:08→21:30)
[2020-11-12 14:18] VITALS: BMI 41.0
[2020-11-12] MEDS: REMDESIVIR 100 MG in SODIUM CHLORIDE 250 ML IVPB SCH (15:25)
[2020-11-12] MEDS: DEXTROSE 5%-0.45% SALINE 1,000 ML IV SCH (17:43)
[2020-11-12] MEDS: ROSUVASTATIN CA 10 MG TABLET (FP) PO SCH (21:30)
[2020-11-12] MEDS: PRAMIPEXOLE DIHYDROCHLORIDE 0.25 MG TABLET PO SCH (21:30)
[2020-11-12] MEDS: MONTELUKAST NA 10 MG TABLET PO SCH (21:30)
[2020-11-12] MEDS: DULoxetine HCL 30 MG CAPSULE.DR PO SCH (21:30)
[2020-11-13] MEDS: guaiFENesin 200 MG/10 ML 10 ML UNIT-DOSE CUPS PO PRN (03:30)
[2020-11-13] MEDS: DEXTROSE 5%-0.45% SALINE 1,000 ML IV SCH ×2 (03:30→14:04)
[2020-11-13] MEDS: INSULIN SLIDING SCALE (NOVOLOG) 1 VIAL SQ SCH ×4 (06:04→21:57)
[2020-11-13] MEDS ORDERED: DEXTROSE 5%-WATER - 50 ML IVPB ONE (09:13)
[2020-11-13] MEDS ORDERED: cefTRIAXone SODIUM 1 GM VIAL ONE (09:13)
[2020-11-13 09:14] LABS: BASO % 0.1 % (0-2.0); EOS % 0.2 % (0-4.5); HEMATOCRIT 33.6 % (32.4-45.2); HEMOGLOBIN 11.4 GM/dL (10.7-15.3); LYMPH % 8.9 % (8-40); MCHC 33.9 g/dl (32.0-36.0); MEAN CELL VOLUME 82.6 fl (80-96); MEAN PLT VOLUME 7.6 fl (7.5-11.1); NEUT % 87.8 % (42.8-82.8); PLATELET COUNT 402 10^3/uL (134-434); RBC 4.06 M/mm3 (3.60-5.2); RDW 14.2 % (11.6-15.6); WHITE BLOOD COUNT 8.4 K/mm3 (4.0-10.0)
[2020-11-13] MEDS: LOSARTAN POTASSIUM 50 MG TABLET PO SCH (09:40)
[2020-11-13] MEDS: ASPIRIN 81 MG CHEWABLE TABLETS PO SCH (09:40)
[2020-11-13] MEDS: TOPIRAMATE 25 MG TABLET PO SCH ×2 (09:40→21:52)
[2020-11-13] MEDS: ZINC SULFATE 220 MG CAPSULE (FP) PO SCH ×2 (09:40→21:52)
[2020-11-13] MEDS: DEXAMETHASONE SOD PHOSPHATE 4 MG/1 ML VIAL IVPUSH SCH (09:41)
[2020-11-13] MEDS: ASCORBIC ACID 500 MG TABLET (FP) PO SCH ×2 (09:41→21:53)
[2020-11-13] MEDS: APIXABAN 5 MG TABLET PO SCH ×2 (09:41→21:52)
[2020-11-13] MEDS: CEFTRIAXONE 1 GM in DEXTROSE 5%-WATER - 50 ML IVPB SCH (09:42)
[2020-11-13] MEDS: CHOLECALCIFEROL (VIT D3) 5000 UNITS (125 MCG) CAP PO SCH (09:42)
[2020-11-13] MEDS: BUDESONIDE/FORMETEROL FUMARATE 160/4.5 mcg INHALER IH SCH ×2 (09:43→21:53)
[2020-11-13] MEDS: ONDANSETRON 4 MG/2 ML VIAL IVPUSH PRN (09:43)
[2020-11-13] MEDS: TIOTROPIUM BROMIDE 2.5 MCG (SPIRIVA) RESPIMAT INHALER IH SCH (09:43)
[2020-11-13 09:44] LABS: BILIRUBIN,TOTAL 0.2 mg/dL (0.2-1)
[2020-11-13] MEDS: BARICITINIB 2 MG TABLET PO SCH (09:44)
[2020-11-13 09:48] LABS: BLOOD UREA NITROGEN 25.1 mg/dL (7-18)
[2020-11-13 09:51] LABS: CALCIUM 8.1 mg/dL (8.5-10.1); CREATININE 0.9 mg/dL (0.55-1.3)
[2020-11-13] MEDS ORDERED: PT OWN MED DRAWER 7, Y5N ONE ×2 (09:55→21:52)
[2020-11-13] MEDS: AZITHROMYCIN IVPB 250 MG in DEXTROSE 5%-WATER - 250 ML IVPB SCH (10:40)
[2020-11-13] MEDS: REMDESIVIR 100 MG in SODIUM CHLORIDE 250 ML IVPB SCH (14:04)
[2020-11-13] MEDS: DULoxetine HCL 30 MG CAPSULE.DR PO SCH (21:52)
[2020-11-13] MEDS: MONTELUKAST NA 10 MG TABLET PO SCH (21:52)
[2020-11-13] MEDS: ROSUVASTATIN CA 10 MG TABLET (FP) PO SCH (21:52)
[2020-11-13] MEDS: PRAMIPEXOLE DIHYDROCHLORIDE 0.25 MG TABLET PO SCH (21:53)
[2020-11-14] MEDS: INSULIN SLIDING SCALE (NOVOLOG) 1 VIAL SQ SCH ×4 (07:00→21:50)
[2020-11-14] MEDS ORDERED: DEXTROSE 50%-WATER 25 GM/50 ML DISP.SYRIN ONE (07:04)
[2020-11-14] MEDS: DEXTROSE 50%-WATER - 25 GM/50 ML VIAL IVPUSH PRN (07:08)
[2020-11-14 07:38] LABS: BASO % 0.2 % (0-2.0); EOS % 0.1 % (0-4.5); HEMATOCRIT 33.9 % (32.4-45.2); HEMOGLOBIN 11.3 GM/dL (10.7-15.3); LYMPH % 8.6 % (8-40); MCH 27.2 pg (25.7-33.7); MCHC 33.4 g/dl (32.0-36.0); MEAN CELL VOLUME 81.6 fl (80-96); MEAN PLT VOLUME 7.3 fl (7.5-11.1); MONO % 3.4 % (3.8-10.2); NEUT % 87.7 % (42.8-82.8); PLATELET COUNT 447 10^3/uL (134-434); RBC 4.16 M/mm3 (3.60-5.2); RDW 14.4 % (11.6-15.6); WHITE BLOOD COUNT 11.1 K/mm3 (4.0-10.0)
[2020-11-14 07:59] LABS: ALBUMIN 1.9 g/dl (3.4-5.0); CALCIUM 7.7 mg/dL (8.5-10.1)
[2020-11-14 08:00] LABS: BLOOD UREA NITROGEN 23.5 mg/dL (7-18)
[2020-11-14 08:03] LABS: BILIRUBIN,TOTAL 0.3 mg/dL (0.2-1); CREATININE 0.9 mg/dL (0.55-1.3); TOT PROT 6.8 g/dl (6.4-8.2)
[2020-11-14] MEDS: ACETAMINOPHEN 325 MG TABLET (FP) PO PRN ×2 (08:17→21:52)
[2020-11-14] MEDS: ONDANSETRON 4 MG/2 ML VIAL IVPUSH PRN ×2 (08:17→21:53)
[2020-11-14] MEDS ORDERED: cefTRIAXone SODIUM 1 GM VIAL ONE (09:18)
[2020-11-14] MEDS ORDERED: DEXTROSE 5%-WATER - 50 ML IVPB ONE (09:18)
[2020-11-14] MEDS ORDERED: PT OWN MED DRAWER 7, Y5N ONE ×3 (09:18→22:24)
[2020-11-14] MEDS: CEFTRIAXONE 1 GM in DEXTROSE 5%-WATER - 50 ML IVPB SCH (10:12)
[2020-11-14] MEDS: AZITHROMYCIN IVPB 250 MG in DEXTROSE 5%-WATER - 250 ML IVPB SCH (10:12)
[2020-11-14] MEDS: ZINC SULFATE 220 MG CAPSULE (FP) PO SCH ×2 (10:12→21:40)
[2020-11-14] MEDS: LOSARTAN POTASSIUM 50 MG TABLET PO SCH (10:13)
[2020-11-14] MEDS: BARICITINIB 2 MG TABLET PO SCH (10:13)
[2020-11-14] MEDS: TOPIRAMATE 25 MG TABLET PO SCH ×2 (10:14→21:39)
[2020-11-14] MEDS: CHOLECALCIFEROL (VIT D3) 5000 UNITS (125 MCG) CAP PO SCH (10:14)
[2020-11-14] MEDS: ASCORBIC ACID 500 MG TABLET (FP) PO SCH ×2 (10:14→21:40)
[2020-11-14] MEDS: DEXAMETHASONE SOD PHOSPHATE 4 MG/1 ML VIAL IVPUSH SCH (10:14)
[2020-11-14] MEDS: ASPIRIN 81 MG CHEWABLE TABLETS PO SCH (10:14)
[2020-11-14] MEDS: APIXABAN 5 MG TABLET PO SCH ×2 (10:15→21:39)
[2020-11-14] MEDS: BUDESONIDE/FORMETEROL FUMARATE 160/4.5 mcg INHALER IH SCH ×2 (10:15→21:40)
[2020-11-14] MEDS: TIOTROPIUM BROMIDE 2.5 MCG (SPIRIVA) RESPIMAT INHALER IH SCH (10:15)
[2020-11-14] MEDS: DEXTROSE 5%-0.45% SALINE 1,000 ML IV SCH ×2 (14:28→22:02)
[2020-11-14] MEDS: REMDESIVIR 100 MG in SODIUM CHLORIDE 250 ML IVPB SCH (14:29)
[2020-11-14] MEDS: ROSUVASTATIN CA 10 MG TABLET (FP) PO SCH (21:39)
[2020-11-14] MEDS: MONTELUKAST NA 10 MG TABLET PO SCH (21:39)
[2020-11-14] MEDS: PRAMIPEXOLE DIHYDROCHLORIDE 0.25 MG TABLET PO SCH (21:39)
[2020-11-14] MEDS: DULoxetine HCL 30 MG CAPSULE.DR PO SCH (21:40)
[2020-11-14] MEDS: guaiFENesin 200 MG/10 ML 10 ML UNIT-DOSE CUPS PO PRN (21:52)
[2020-11-15] MEDS: INSULIN SLIDING SCALE (NOVOLOG) 1 VIAL SQ SCH ×4 (06:13→21:51)
[2020-11-15 08:01] LABS: ALBUMIN 1.7 g/dl (3.4-5.0); BLOOD UREA NITROGEN 20.6 mg/dL (7-18); CALCIUM 7.8 mg/dL (8.5-10.1)
[2020-11-15 08:06] LABS: BILIRUBIN,TOTAL 0.3 mg/dL (0.2-1); TOT PROT 5.2 g/dl (6.4-8.2)
[2020-11-15] MEDS: ACETAMINOPHEN 325 MG TABLET (FP) PO PRN ×2 (09:13→21:34)
[2020-11-15] MEDS ORDERED: PT OWN MED DRAWER 7, Y5N ONE ×2 (09:50→21:16)
[2020-11-15] MEDS ORDERED: cefTRIAXone SODIUM 1 GM VIAL ONE (09:50)
[2020-11-15] MEDS ORDERED: DEXTROSE 5%-WATER - 50 ML IVPB ONE (09:51)
[2020-11-15] MEDS: LOSARTAN POTASSIUM 50 MG TABLET PO SCH (09:57)
[2020-11-15] MEDS: TOPIRAMATE 25 MG TABLET PO SCH ×2 (09:58→21:34)
[2020-11-15] MEDS: CEFTRIAXONE 1 GM in DEXTROSE 5%-WATER - 50 ML IVPB SCH (09:58)
[2020-11-15] MEDS: ZINC SULFATE 220 MG CAPSULE (FP) PO SCH ×2 (09:58→21:34)
[2020-11-15] MEDS: ASCORBIC ACID 500 MG TABLET (FP) PO SCH ×2 (09:58→21:33)
[2020-11-15] MEDS: APIXABAN 5 MG TABLET PO SCH ×2 (09:58→21:34)
[2020-11-15] MEDS: DEXAMETHASONE SOD PHOSPHATE 4 MG/1 ML VIAL IVPUSH SCH (09:58)
[2020-11-15] MEDS: BARICITINIB 2 MG TABLET PO SCH (09:59)
[2020-11-15] MEDS: TIOTROPIUM BROMIDE 2.5 MCG (SPIRIVA) RESPIMAT INHALER IH SCH (10:00)
[2020-11-15] MEDS: ASPIRIN 81 MG CHEWABLE TABLETS PO SCH (10:00)
[2020-11-15] MEDS: BUDESONIDE/FORMETEROL FUMARATE 160/4.5 mcg INHALER IH SCH ×2 (10:00→21:51)
[2020-11-15] MEDS: CHOLECALCIFEROL (VIT D3) 5000 UNITS (125 MCG) CAP PO SCH (10:00)
[2020-11-15] MEDS: ONDANSETRON 4 MG/2 ML VIAL IVPUSH PRN ×2 (10:15→21:42)
[2020-11-15] MEDS: AZITHROMYCIN IVPB 250 MG in DEXTROSE 5%-WATER - 250 ML IVPB SCH (11:46)
[2020-11-15] MEDS: DEXTROSE 5%-0.45% SALINE 1,000 ML IV SCH ×2 (14:01→17:34)
[2020-11-15] MEDS: REMDESIVIR 100 MG in SODIUM CHLORIDE 250 ML IVPB SCH (14:10)
[2020-11-15] MEDS: guaiFENesin 200 MG/10 ML 10 ML UNIT-DOSE CUPS PO PRN (21:33)
[2020-11-15] MEDS: PRAMIPEXOLE DIHYDROCHLORIDE 0.25 MG TABLET PO SCH (21:33)
[2020-11-15] MEDS: MONTELUKAST NA 10 MG TABLET PO SCH (21:34)
[2020-11-15] MEDS: DULoxetine HCL 30 MG CAPSULE.DR PO SCH (21:34)
[2020-11-15] MEDS: ROSUVASTATIN CA 10 MG TABLET (FP) PO SCH (21:34)
[2020-11-16] MEDS: ACETAMINOPHEN 325 MG TABLET (FP) PO PRN ×2 (03:05→10:45)
[2020-11-16] MEDS: INSULIN SLIDING SCALE (NOVOLOG) 1 VIAL SQ SCH ×4 (06:32→22:45)
[2020-11-16] MEDS ORDERED: DEXTROSE 50%-WATER 25 GM/50 ML DISP.SYRIN ONE (06:33)
[2020-11-16] MEDS: DEXTROSE 50%-WATER - 25 GM/50 ML VIAL IVPUSH PRN (06:51)
[2020-11-16] MEDS: DEXTROSE 5%-0.45% SALINE 1,000 ML IV SCH (06:52)
[2020-11-16 07:41] LABS: CALCIUM 7.8 mg/dL (8.5-10.1)
[2020-11-16 07:42] LABS: ALBUMIN 1.8 g/dl (3.4-5.0); BLOOD UREA NITROGEN 17.8 mg/dL (7-18)
[2020-11-16 07:45] LABS: CREATININE 0.9 mg/dL (0.55-1.3)
[2020-11-16 07:46] LABS: BILIRUBIN,TOTAL 0.3 mg/dL (0.2-1)
[2020-11-16 07:47] LABS: BASO % 0.1 % (0-2.0); EOS % 0.1 % (0-4.5); HEMATOCRIT 33.9 % (32.4-45.2); HEMOGLOBIN 11.2 GM/dL (10.7-15.3); LYMPH % 4.7 % (8-40); MCHC 32.9 g/dl (32.0-36.0); MEAN CELL VOLUME 82.1 fl (80-96); MEAN PLT VOLUME 7.6 fl (7.5-11.1); MONO % 4.1 % (3.8-10.2); PLATELET COUNT 485 10^3/uL (134-434); RBC 4.13 M/mm3 (3.60-5.2); RDW 14.6 % (11.6-15.6); WHITE BLOOD COUNT 14.4 K/mm3 (4.0-10.0)
[2020-11-16 07:53] LABS: TOT PROT 5.8 g/dl (6.4-8.2)
[2020-11-16 10:09] LABS: ANISOCYTOSIS 0; HELMET CELLS 0; HOWELL-JOLLY BODIES 0; MACROCYTOSIS 0; OVALOCYTE 0; PLATELET ESTIMATE NORMAL; ROULEAU 0; SICKELED CELLS 0; TARGET CELLS 0; TEAR DROP CELLS 0; TOXIC GRANULATION 0
[2020-11-16] MEDS ORDERED: DEXTROSE 5%-WATER - 50 ML IVPB ONE (10:40)
[2020-11-16] MEDS ORDERED: PT OWN MED DRAWER 7, Y5N ONE ×2 (10:40→20:02)
[2020-11-16] MEDS ORDERED: cefTRIAXone SODIUM 1 GM VIAL ONE (10:40)
[2020-11-16] MEDS: CEFTRIAXONE 1 GM in DEXTROSE 5%-WATER - 50 ML IVPB SCH (10:43)
[2020-11-16] MEDS: TOPIRAMATE 25 MG TABLET PO SCH ×2 (10:44→22:17)
[2020-11-16] MEDS: ASPIRIN 81 MG CHEWABLE TABLETS PO SCH (10:44)
[2020-11-16] MEDS: ASCORBIC ACID 500 MG TABLET (FP) PO SCH ×2 (10:44→22:18)
[2020-11-16] MEDS: ZINC SULFATE 220 MG CAPSULE (FP) PO SCH ×2 (10:44→22:16)
[2020-11-16] MEDS: LOSARTAN POTASSIUM 50 MG TABLET PO SCH (10:44)
[2020-11-16] MEDS: DEXAMETHASONE SOD PHOSPHATE 4 MG/1 ML VIAL IVPUSH SCH (10:45)
[2020-11-16] MEDS: APIXABAN 5 MG TABLET PO SCH ×2 (10:45→22:15)
[2020-11-16] MEDS: BUDESONIDE/FORMETEROL FUMARATE 160/4.5 mcg INHALER IH SCH ×2 (10:59→22:16)
[2020-11-16] MEDS: TIOTROPIUM BROMIDE 2.5 MCG (SPIRIVA) RESPIMAT INHALER IH SCH (10:59)
[2020-11-16] MEDS: guaiFENesin 200 MG/10 ML 10 ML UNIT-DOSE CUPS PO PRN (11:09)
[2020-11-16] MEDS: ONDANSETRON 4 MG/2 ML VIAL IVPUSH PRN (11:10)
[2020-11-16] MEDS ORDERED: POTASSIUM CHLORIDE 20 MEQ in DEXTROSE 5%-WATER - 1,000 ML IV SCH (11:30)
[2020-11-16] MEDS: CHOLECALCIFEROL (VIT D3) 5000 UNITS (125 MCG) CAP PO SCH (12:08)
[2020-11-16] MEDS: BARICITINIB 2 MG TABLET PO SCH (12:08)
[2020-11-16] MEDS ORDERED: DEXTROSE 50%-WATER - 25 GM/50 ML VIAL IVPUSH PRN (21:10)
[2020-11-16] MEDS ORDERED: ACETAMINOPHEN 325 MG TABLET (FP) PO PRN (21:10)
[2020-11-16] MEDS ORDERED: ONDANSETRON 4 MG/2 ML VIAL IVPUSH PRN (21:10)
[2020-11-16] MEDS ORDERED: ALBUTEROL SO4 HFA INHALER IH PRN (21:10)
[2020-11-16] MEDS ORDERED: guaiFENesin 200 MG/10 ML 10 ML UNIT-DOSE CUPS PO PRN (21:10)
[2020-11-16] MEDS ORDERED: DEXMEDETOMIDINE IN 0.9 % NACL 400 MCG/100 ML VIAL IVPB SCH (21:15)
[2020-11-16] MEDS ORDERED: FAMOTIDINE 20 MG/50 ML IVPB 20 MG/50 ML MG IVPB SCH (22:00)
[2020-11-16 22:05] LABS: ARTERIAL BLD GAS O2 SATURATION 90.6 % (95-98); ARTERIAL BLOOD GAS BASE EXCESS -2.2 mmol/L (-2-2); ARTERIAL BLOOD GAS PO2 55.7 mmHg (80-100); ARTERIAL BLOOD GAS pH 7.446 (7.350-7.450)
[2020-11-16 22:11] LABS: ALLENS TEST POSITIVE
[2020-11-16] MEDS: MUPIROCIN 2% TOPICAL OINTMENT FOR DECOLONIZATION NS SCH (22:13)
[2020-11-16] MEDS: DULoxetine HCL 30 MG CAPSULE.DR PO SCH (22:14)
[2020-11-16] MEDS: ROSUVASTATIN CA 10 MG TABLET (FP) PO SCH (22:14)
[2020-11-16] MEDS: CHLORHEXIDINE GLUCONATE 4% CLEANSER FOR DECOLONIZATION TP SCH (22:15)
[2020-11-16] MEDS: PRAMIPEXOLE DIHYDROCHLORIDE 0.25 MG TABLET PO SCH (22:16)
[2020-11-16] MEDS: PANTOPRAZOLE SODIUM 40 MG VIAL IVPUSH SCH (22:17)
[2020-11-16] MEDS: MONTELUKAST NA 10 MG TABLET PO SCH (22:17)
[2020-11-17 02:26] LABS: ARTERIAL BLD GAS O2 SATURATION 83.3 % (95-98); ARTERIAL BLOOD GAS BASE EXCESS -2.8 mmol/L (-2-2); ARTERIAL BLOOD GAS pH 7.438 (7.350-7.450)
[2020-11-17 02:30] LABS: ALLENS TEST POSITIVE
[2020-11-17] MEDS: INSULIN SLIDING SCALE (NOVOLOG) 1 VIAL SQ SCH ×4 (06:59→22:39)
[2020-11-17 07:47] LABS: HEMATOCRIT 32.3 % (32.4-45.2); HEMOGLOBIN 10.8 GM/dL (10.7-15.3); MCH 27.1 pg (25.7-33.7); MCHC 33.5 g/dl (32.0-36.0); MEAN CELL VOLUME 80.8 fl (80-96); MEAN PLT VOLUME 7.6 fl (7.5-11.1); PLATELET COUNT 438 10^3/uL (134-434); RBC 3.99 M/mm3 (3.60-5.2); RDW 14.2 % (11.6-15.6); WHITE BLOOD COUNT 17.9 K/mm3 (4.0-10.0)
[2020-11-17 08:16] LABS: CALCIUM 7.7 mg/dL (8.5-10.1)
[2020-11-17 08:17] LABS: ALBUMIN 1.7 g/dl (3.4-5.0); BLOOD UREA NITROGEN 18.2 mg/dL (7-18)
[2020-11-17 08:18] LABS: TOT PROT 5.9 g/dl (6.4-8.2)
[2020-11-17 08:19] LABS: BILIRUBIN,TOTAL 0.8 mg/dL (0.2-1); CREATININE 0.7 mg/dL (0.55-1.3)
[2020-11-17 08:20] LABS: PHOSPHOROUS 3.1 mg/dL (2.5-4.9)
[2020-11-17] MEDS ORDERED: PT OWN MED DRAWER 7, Y5N ONE ×3 (09:03→11:16)
[2020-11-17] MEDS ORDERED: cefTRIAXone SODIUM 1 GM VIAL ONE (09:04)
[2020-11-17] MEDS ORDERED: DEXTROSE 5%-WATER - 50 ML IVPB ONE (09:04)
[2020-11-17] MEDS: PANTOPRAZOLE SODIUM 40 MG VIAL IVPUSH SCH ×2 (09:20→22:23)
[2020-11-17] MEDS: DEXAMETHASONE SOD PHOSPHATE 4 MG/1 ML VIAL IVPUSH SCH (09:21)
[2020-11-17] MEDS: ASCORBIC ACID 500 MG TABLET (FP) PO SCH ×2 (09:24→22:23)
[2020-11-17] MEDS: CHOLECALCIFEROL (VIT D3) 5000 UNITS (125 MCG) CAP PO SCH (09:25)
[2020-11-17] MEDS: ZINC SULFATE 220 MG CAPSULE (FP) PO SCH ×2 (09:25→22:23)
[2020-11-17] MEDS: ASPIRIN 81 MG CHEWABLE TABLETS PO SCH (09:25)
[2020-11-17] MEDS: TOPIRAMATE 25 MG TABLET PO SCH ×2 (09:25→22:23)
[2020-11-17] MEDS: LOSARTAN POTASSIUM 50 MG TABLET PO SCH (09:26)
[2020-11-17] MEDS: BARICITINIB 2 MG TABLET PO SCH (09:26)
[2020-11-17] MEDS: APIXABAN 5 MG TABLET PO SCH ×2 (09:26→22:23)
[2020-11-17] MEDS: MUPIROCIN 2% TOPICAL OINTMENT FOR DECOLONIZATION NS SCH ×2 (09:27→22:23)
[2020-11-17] MEDS: TIOTROPIUM BROMIDE 2.5 MCG (SPIRIVA) RESPIMAT INHALER IH SCH (09:28)
[2020-11-17] MEDS: BUDESONIDE/FORMETEROL FUMARATE 160/4.5 mcg INHALER IH SCH ×2 (09:28→22:24)
[2020-11-17] MEDS ORDERED: CEFTRIAXONE 1 GM in DEXTROSE 5%-WATER - 50 ML IVPB SCH (10:00)
[2020-11-17 10:22] LABS: ANISOCYTOSIS 2+; MACROCYTOSIS 0; PLATELET ESTIMATE NORMAL
[2020-11-17] MEDS ORDERED: LORazepam 2 MG/ML SDV VIAL IVPUSH ONE ×2 (11:19→13:55)
[2020-11-17] MEDS ORDERED: MORPHINE SULFATE 2 MG/ML VIAL IVPUSH ONE (13:36)
[2020-11-17] MEDS ORDERED: PROPOFOL 1,000,000 MCG/100 ML VIAL ONE (14:40)
[2020-11-17] MEDS ORDERED: SUCCINYLCHOLINE CHLORIDE 200 MG/10 ML SYRINGE ONE (14:40)
[2020-11-17] MEDS ORDERED: morphine SULFATE 4 MG/ML VIAL ONE (14:49)
[2020-11-17] MEDS ORDERED: FENTANYL NS IVPB 500 MCG/100 ML BAG IVPB ONE (15:05)
[2020-11-17] MEDS ORDERED: VECURONIUM BROMIDE 100 MG/100 ML BAG ONE (15:13)
[2020-11-17] MEDS ORDERED: SUCCINYLCHOLINE CHLORIDE 200 MG/10 ML VIAL IVPUSH ONE (16:22)
[2020-11-17] MEDS: PROPOFOL 1,000,000 MCG/100 ML VIAL IVPB SCH ×2 (16:46→22:00)
[2020-11-17] MEDS: VECURONIUM BROMIDE 100 MG/100 ML BAG IVPB SCH (16:49)
[2020-11-17] MEDS: FENTANYL NS IVPB 500 MCG/100 ML BAG IVPB SCH (16:49)
[2020-11-17] MEDS: POTASSIUM CHLORIDE 20 MEQ in DEXTROSE 5%-WATER - 1,000 ML IV SCH (16:51)
[2020-11-17] MEDS: REMDESIVIR 100 MG in SODIUM CHLORIDE 250 ML IVPB SCH (17:19)
[2020-11-17 17:49] LABS: ARTERIAL BLD GAS O2 SATURATION 86.8 % (95-98); ARTERIAL BLOOD GAS BASE EXCESS -6.9 mmol/L (-2-2); ARTERIAL BLOOD GAS PO2 64.1 mmHg (80-100)
[2020-11-17 17:50] LABS: ALLENS TEST POSITIVE; VENT MODE A/C; VENT RATE 30
[2020-11-17 17:53] LABS: ARTERIAL BLOOD GAS pH 7.191 (7.350-7.450)
[2020-11-17] MEDS ORDERED: morphine SULFATE 4 MG/ML VIAL IVPUSH ONE (19:04)
[2020-11-17] MEDS: DULoxetine HCL 30 MG CAPSULE.DR PO SCH (22:23)
[2020-11-17] MEDS: MONTELUKAST NA 10 MG TABLET PO SCH (22:23)
[2020-11-17] MEDS: ROSUVASTATIN CA 10 MG TABLET (FP) PO SCH (22:23)
[2020-11-17] MEDS: CHLORHEXIDINE GLUCONATE 4% CLEANSER FOR DECOLONIZATION TP SCH (22:24)
[2020-11-17] MEDS: PRAMIPEXOLE DIHYDROCHLORIDE 0.25 MG TABLET PO SCH (22:24)
[2020-11-17 23:18] LABS: ARTERIAL BLD GAS O2 SATURATION 92.4 % (95-98); ARTERIAL BLOOD GAS BASE EXCESS -9.3 mmol/L (-2-2); ARTERIAL BLOOD GAS PO2 80.1 mmHg (80-100)
[2020-11-17 23:30] LABS: ALLENS TEST POSITIVE
[2020-11-17 23:31] LABS: VENT MODE A/C; VENT RATE 30
[2020-11-17 23:32] LABS: ARTERIAL BLOOD GAS pH 7.168 (7.350-7.450)
[2020-11-18] MEDS: PROPOFOL 1,000,000 MCG/100 ML VIAL IVPB SCH ×4 (03:00→22:00)
[2020-11-18] MEDS: POTASSIUM CHLORIDE 20 MEQ in DEXTROSE 5%-WATER - 1,000 ML IV SCH (03:00)
[2020-11-18] MEDS: INSULIN SLIDING SCALE (NOVOLOG) 1 VIAL SQ SCH ×4 (06:20→21:21)
[2020-11-18 06:35] LABS: ARTERIAL BLD GAS O2 SATURATION 96.4 % (95-98); ARTERIAL BLOOD GAS BASE EXCESS -5.5 mmol/L (-2-2); ARTERIAL BLOOD GAS PO2 101.2 mmHg (80-100); ARTERIAL BLOOD GAS pH 7.229 (7.350-7.450)
[2020-11-18] MEDS: VECURONIUM BROMIDE 100 MG/100 ML BAG IVPB SCH ×2 (06:41→17:21)
[2020-11-18 07:00] LABS: ALLENS TEST POSITIVE; VENT MODE A/C; VENT RATE 30
[2020-11-18 07:51] LABS: HEMATOCRIT 33.8 % (32.4-45.2); HEMOGLOBIN 11.2 GM/dL (10.7-15.3); MCH 27.8 pg (25.7-33.7); MCHC 33.3 g/dl (32.0-36.0); MEAN CELL VOLUME 83.5 fl (80-96); MEAN PLT VOLUME 7.6 fl (7.5-11.1); PLATELET COUNT 557 10^3/uL (134-434); RBC 4.04 M/mm3 (3.60-5.2); RDW 14.7 % (11.6-15.6); WHITE BLOOD COUNT 21.2 K/mm3 (4.0-10.0)
[2020-11-18 08:08] LABS: ALBUMIN 1.7 g/dl (3.4-5.0); BLOOD UREA NITROGEN 18.4 mg/dL (7-18)
[2020-11-18 08:11] LABS: CREATININE 0.9 mg/dL (0.55-1.3)
[2020-11-18 08:12] LABS: BILIRUBIN,TOTAL 0.2 mg/dL (0.2-1)
[2020-11-18 09:04] LABS: ERYTHROCYTE SEDIMENTATION RATE 86 mm/hr (0-30)
[2020-11-18 09:11] LABS: ANISOCYTOSIS 0; MACROCYTOSIS 1+; PLATELET ESTIMATE INCREASED
[2020-11-18] MEDS: ZINC SULFATE 220 MG CAPSULE (FP) PO SCH ×2 (10:15→21:15)
[2020-11-18] MEDS: DEXAMETHASONE SOD PHOSPHATE 4 MG/1 ML VIAL IVPUSH SCH (10:15)
[2020-11-18] MEDS: PANTOPRAZOLE SODIUM 40 MG VIAL IVPUSH SCH ×2 (10:15→21:15)
[2020-11-18] MEDS: APIXABAN 5 MG TABLET PO SCH ×2 (10:15→21:15)
[2020-11-18] MEDS: ASPIRIN 81 MG CHEWABLE TABLETS PO SCH (10:15)
[2020-11-18] MEDS: ASCORBIC ACID 500 MG TABLET (FP) PO SCH ×2 (10:15→21:15)
[2020-11-18] MEDS: BARICITINIB 2 MG TABLET PO SCH (10:15)
[2020-11-18] MEDS: TOPIRAMATE 25 MG TABLET PO SCH ×2 (10:16→21:15)
[2020-11-18] MEDS: CHOLECALCIFEROL (VIT D3) 5000 UNITS (125 MCG) CAP PO SCH (10:16)
[2020-11-18] MEDS: LOSARTAN POTASSIUM 50 MG TABLET PO SCH (10:22)
[2020-11-18] MEDS: TIOTROPIUM BROMIDE 2.5 MCG (SPIRIVA) RESPIMAT INHALER IH SCH (11:01)
[2020-11-18] MEDS: BUDESONIDE/FORMETEROL FUMARATE 160/4.5 mcg INHALER IH SCH ×2 (11:02→21:16)
[2020-11-18] MEDS: MUPIROCIN 2% TOPICAL OINTMENT FOR DECOLONIZATION NS SCH ×2 (11:02→21:16)
[2020-11-18] MEDS ORDERED: LABETALOL HCL 5 MG/1 ML (100MG/20 ML VIAL) IVPUSH ONE ×3 (12:10→22:15)
[2020-11-18] MEDS: MULTIVIT-MINERALS ORAL LIQUID PO SCH (14:30)
[2020-11-18] MEDS ORDERED: PT OWN MED DRAWER 7, Y5N ONE ×2 (15:07→21:14)
[2020-11-18] MEDS: FENTANYL NS IVPB 500 MCG/100 ML BAG IVPB SCH ×2 (17:13)
[2020-11-18] MEDS: REMDESIVIR 100 MG in SODIUM CHLORIDE 250 ML IVPB SCH (17:24)
[2020-11-18] MEDS: AMINO ACIDS/PROTEIN HYDROLYS 30 ML LIQUID.PKT PO SCH (17:24)
[2020-11-18] MEDS ORDERED: amLODIPine BESYLATE 5 MG TABLET (FP) PO SCH (17:49)
[2020-11-18] MEDS: ROSUVASTATIN CA 10 MG TABLET (FP) PO SCH (21:15)
[2020-11-18] MEDS: CHLORHEXIDINE GLUCONATE 4% CLEANSER FOR DECOLONIZATION TP SCH (21:16)
[2020-11-18] MEDS: MONTELUKAST NA 10 MG TABLET PO SCH (21:16)
[2020-11-18] MEDS: DULoxetine HCL 30 MG CAPSULE.DR PO SCH (21:16)
[2020-11-18] MEDS ORDERED: amLODIPine BESYLATE 5 MG TABLET (FP) PO ONE (22:12)
[2020-11-18] MEDS: PRAMIPEXOLE DIHYDROCHLORIDE 0.25 MG TABLET PO SCH (22:35)
[2020-11-19] MEDS: PROPOFOL 1,000,000 MCG/100 ML VIAL IVPB SCH ×4 (03:00→17:14)
[2020-11-19] MEDS: INSULIN SLIDING SCALE (NOVOLOG) 1 VIAL SQ SCH ×3 (06:00→17:14)
[2020-11-19] MEDS: VECURONIUM BROMIDE 100 MG/100 ML BAG IVPB SCH ×2 (06:09→16:32)
[2020-11-19 06:37] LABS: ARTERIAL BLD GAS O2 SATURATION 85.8 % (95-98); ARTERIAL BLOOD GAS BASE EXCESS 5.9 mmol/L (-2-2); ARTERIAL BLOOD GAS PO2 54.1 mmHg (80-100); ARTERIAL BLOOD GAS pH 7.352 (7.350-7.450)
[2020-11-19 06:38] LABS: BASO % 0.1 % (0-2.0); HEMATOCRIT 32.9 % (32.4-45.2); HEMOGLOBIN 10.8 GM/dL (10.7-15.3); LYMPH % 3.9 % (8-40); MCH 27.6 pg (25.7-33.7); MEAN CELL VOLUME 83.7 fl (80-96); MEAN PLT VOLUME 7.6 fl (7.5-11.1); MONO % 5.6 % (3.8-10.2); NEUT % 90.4 % (42.8-82.8); PLATELET COUNT 517 10^3/uL (134-434); RBC 3.93 M/mm3 (3.60-5.2); RDW 14.8 % (11.6-15.6); WHITE BLOOD COUNT 16.4 K/mm3 (4.0-10.0)
[2020-11-19 06:39] LABS: VENT MODE V-A/C; VENT RATE 22
[2020-11-19 07:00] LABS: ALBUMIN 1.6 g/dl (3.4-5.0); BLOOD UREA NITROGEN 20.1 mg/dL (7-18)
[2020-11-19 07:03] LABS: CREATININE 0.7 mg/dL (0.55-1.3)
[2020-11-19 07:04] LABS: BILIRUBIN,TOTAL 0.2 mg/dL (0.2-1)
[2020-11-19 07:05] LABS: TOT PROT 5.8 g/dl (6.4-8.2)
[2020-11-19 07:16] LABS: ARTERIAL BLD GAS O2 SATURATION 96.4 % (95-98); ARTERIAL BLOOD GAS BASE EXCESS 0.6 mmol/L (-2-2); ARTERIAL BLOOD GAS PO2 95.1 mmHg (80-100); ARTERIAL BLOOD GAS pH 7.297 (7.350-7.450)
[2020-11-19 07:20] LABS: VENT MODE V-A/C; VENT RATE 32
[2020-11-19 07:43] LABS: ERYTHROCYTE SEDIMENTATION RATE 88 mm/hr (0-30)
[2020-11-19] MEDS ORDERED: PT OWN MED DRAWER 7, Y5N ONE ×3 (08:37→22:53)
[2020-11-19] MEDS: AMINO ACIDS/PROTEIN HYDROLYS 30 ML LIQUID.PKT PO SCH ×2 (08:56→17:14)
[2020-11-19] MEDS: DEXAMETHASONE SOD PHOSPHATE 4 MG/1 ML VIAL IVPUSH SCH (09:16)
[2020-11-19] MEDS: ZINC SULFATE 220 MG CAPSULE (FP) PO SCH ×2 (09:16→22:55)
[2020-11-19] MEDS: ASPIRIN 81 MG CHEWABLE TABLETS PO SCH (09:16)
[2020-11-19] MEDS: TOPIRAMATE 25 MG TABLET PO SCH ×2 (09:16→22:55)
[2020-11-19] MEDS: PANTOPRAZOLE SODIUM 40 MG VIAL IVPUSH SCH ×2 (09:16→22:55)
[2020-11-19] MEDS: APIXABAN 5 MG TABLET PO SCH ×2 (09:16→22:55)
[2020-11-19] MEDS: LOSARTAN POTASSIUM 50 MG TABLET PO SCH (09:17)
[2020-11-19] MEDS: CHOLECALCIFEROL (VIT D3) 5000 UNITS (125 MCG) CAP PO SCH (09:17)
[2020-11-19] MEDS: amLODIPine BESYLATE 5 MG TABLET (FP) PO SCH (09:17)
[2020-11-19] MEDS: BARICITINIB 2 MG TABLET PO SCH (09:17)
[2020-11-19] MEDS: TIOTROPIUM BROMIDE 2.5 MCG (SPIRIVA) RESPIMAT INHALER IH SCH (09:18)
[2020-11-19] MEDS: MUPIROCIN 2% TOPICAL OINTMENT FOR DECOLONIZATION NS SCH ×2 (09:18→22:56)
[2020-11-19] MEDS: BUDESONIDE/FORMETEROL FUMARATE 160/4.5 mcg INHALER IH SCH ×2 (09:18→22:56)
[2020-11-19] MEDS: MULTIVIT-MINERALS ORAL LIQUID PO SCH (09:18)
[2020-11-19] MEDS: ASCORBIC ACID 500 MG TABLET (FP) PO SCH ×2 (09:19→22:55)
[2020-11-19] MEDS ORDERED: amLODIPine BESYLATE 5 MG TABLET (FP) PO SCH (10:00)
[2020-11-19] MEDS ORDERED: ACETAMINOPHEN 1000 MG/100 ML VIAL (NON FORMULARY) IVPB ONE (13:55)
[2020-11-19] MEDS ORDERED: ACETAMINOPHEN INJECTION 100 ML IVPB ONE (13:58)
[2020-11-19] MEDS: FENTANYL NS IVPB 500 MCG/100 ML BAG IVPB SCH (16:32)
[2020-11-19] MEDS: REMDESIVIR 100 MG in SODIUM CHLORIDE 250 ML IVPB SCH (17:14)
[2020-11-19] MEDS ORDERED: LABETALOL HCL 5 MG/1 ML (100MG/20 ML VIAL) IVPUSH ONE ×2 (20:09→23:20)
[2020-11-19] MEDS: ROSUVASTATIN CA 10 MG TABLET (FP) PO SCH (22:55)
[2020-11-19] MEDS: DULoxetine HCL 30 MG CAPSULE.DR PO SCH (22:55)
[2020-11-19] MEDS: MONTELUKAST NA 10 MG TABLET PO SCH (22:55)
[2020-11-19] MEDS: CHLORHEXIDINE GLUCONATE 4% CLEANSER FOR DECOLONIZATION TP SCH (22:56)
[2020-11-20] MEDS: PRAMIPEXOLE DIHYDROCHLORIDE 0.25 MG TABLET PO SCH (00:01)
[2020-11-20] MEDS: INSULIN SLIDING SCALE (NOVOLOG) 1 VIAL SQ SCH ×4 (00:06→18:39)
[2020-11-20] MEDS ORDERED: LABETALOL HCL 5 MG/1 ML (100MG/20 ML VIAL) IVPUSH ONE ×2 (01:01→03:47)
[2020-11-20] MEDS ORDERED: METOPROLOL TARTRATE 5 MG/5 ML VIAL IVPUSH ONE (02:20)
[2020-11-20] MEDS ORDERED: ACETAMINOPHEN 1000 MG/100 ML VIAL (NON FORMULARY) IVPB PRN (03:07)
[2020-11-20] MEDS: VECURONIUM BROMIDE 100 MG/100 ML BAG IVPB SCH ×2 (06:20→17:47)
[2020-11-20] MEDS: FENTANYL NS IVPB 500 MCG/100 ML BAG IVPB SCH ×3 (06:21→17:47)
[2020-11-20] MEDS: PROPOFOL 1,000,000 MCG/100 ML VIAL IVPB SCH ×3 (06:22→18:39)
[2020-11-20 06:26] LABS: ARTERIAL BLD GAS O2 SATURATION 83.4 % (95-98); ARTERIAL BLOOD GAS BASE EXCESS 0.3 mmol/L (-2-2); ARTERIAL BLOOD GAS pH 7.235 (7.350-7.450)
[2020-11-20 06:27] LABS: VENT MODE V-A/C; VENT RATE 32
[2020-11-20 06:55] LABS: BASO % 0.5 % (0-2.0); HEMATOCRIT 35.8 % (32.4-45.2); HEMOGLOBIN 11.8 GM/dL (10.7-15.3); LYMPH % 1.4 % (8-40); MCH 27.8 pg (25.7-33.7); MCHC 32.9 g/dl (32.0-36.0); MEAN CELL VOLUME 84.3 fl (80-96); MEAN PLT VOLUME 7.8 fl (7.5-11.1); NEUT % 95.1 % (42.8-82.8); PLATELET COUNT 621 10^3/uL (134-434); RBC 4.25 M/mm3 (3.60-5.2); RDW 14.5 % (11.6-15.6)
[2020-11-20] MEDS ORDERED: PIPERACILLIN/TAZOB 4.5 GM 4.5 GM in DEXTROSE 5%-WATER 100 ML IVPB ONE (07:00)
[2020-11-20 07:12] LABS: ALBUMIN 1.9 g/dl (3.4-5.0); BLOOD UREA NITROGEN 28.6 mg/dL (7-18)
[2020-11-20 07:13] LABS: CALCIUM 8.1 mg/dL (8.5-10.1)
[2020-11-20 07:14] LABS: BILIRUBIN,TOTAL 0.5 mg/dL (0.2-1); TOT PROT 6.4 g/dl (6.4-8.2)
[2020-11-20 07:15] LABS: CREATININE 0.8 mg/dL (0.55-1.3)
[2020-11-20] MEDS: LOSARTAN POTASSIUM 50 MG TABLET PO SCH ×2 (08:12→09:11)
[2020-11-20] MEDS: AMINO ACIDS/PROTEIN HYDROLYS 30 ML LIQUID.PKT PO SCH ×2 (08:13→18:40)
[2020-11-20] MEDS ORDERED: PIPERACILLIN/TAZOBACTAM 4.5 GM VIAL IVPB ONE ×2 (08:40→15:37)
[2020-11-20] MEDS ORDERED: DEXTROSE 5%-WATER 100 ML IVPB ONE ×3 (08:40→18:41)
[2020-11-20 08:45] LABS: ANISOCYTOSIS 0; HELMET CELLS 0; HOWELL-JOLLY BODIES 0; MACROCYTOSIS 0; OVALOCYTE 0; PLATELET ESTIMATE INCREASED; ROULEAU 0; SICKELED CELLS 0; TARGET CELLS 0; TEAR DROP CELLS 0; TOXIC GRANULATION 0
[2020-11-20 09:10] LABS: ARTERIAL BLD GAS O2 SATURATION 78.3 % (95-98); ARTERIAL BLOOD GAS BASE EXCESS 0.3 mmol/L (-2-2); ARTERIAL BLOOD GAS pH 7.237 (7.350-7.450)
[2020-11-20 09:11] LABS: ALLENS TEST POSITIVE
[2020-11-20 09:12] LABS: VENT MODE A/C; VENT RATE 30
[2020-11-20] MEDS: TIOTROPIUM BROMIDE 2.5 MCG (SPIRIVA) RESPIMAT INHALER IH SCH (09:22)
[2020-11-20] MEDS: PANTOPRAZOLE SODIUM 40 MG VIAL IVPUSH SCH (09:29)
[2020-11-20] MEDS: DEXAMETHASONE SOD PHOSPHATE 4 MG/1 ML VIAL IVPUSH SCH (09:29)
[2020-11-20] MEDS: APIXABAN 5 MG TABLET PO SCH (09:30)
[2020-11-20] MEDS: ZINC SULFATE 220 MG CAPSULE (FP) PO SCH (09:30)
[2020-11-20] MEDS: BUDESONIDE/FORMETEROL FUMARATE 160/4.5 mcg INHALER IH SCH (09:30)
[2020-11-20] MEDS: MUPIROCIN 2% TOPICAL OINTMENT FOR DECOLONIZATION NS SCH (09:30)
[2020-11-20] MEDS: ASCORBIC ACID 500 MG TABLET (FP) PO SCH (09:30)
[2020-11-20] MEDS: ASPIRIN 81 MG CHEWABLE TABLETS PO SCH (09:30)
[2020-11-20] MEDS ORDERED: PT OWN MED DRAWER 7, Y5N ONE ×3 (09:32→18:41)
[2020-11-20] MEDS: MULTIVIT-MINERALS ORAL LIQUID PO SCH (09:33)
[2020-11-20] MEDS: CHOLECALCIFEROL (VIT D3) 5000 UNITS (125 MCG) CAP PO SCH ×2 (09:33→09:36)
[2020-11-20 10:23] LABS: ERYTHROCYTE SEDIMENTATION RATE 79 mm/hr (0-30)
[2020-11-20] MEDS: TOPIRAMATE 25 MG TABLET PO SCH (11:24)
[2020-11-20] MEDS: amLODIPine BESYLATE 5 MG TABLET (FP) PO SCH (11:24)
[2020-11-20] MEDS: BARICITINIB 1 MG/10 ML LIQUID NGT SCH (13:05)
[2020-11-20] MEDS ORDERED: PIPERACILLIN/TAZOB 4.5 GM 4.5 GM in DEXTROSE 5%-WATER 100 ML IVPB SCH (15:00)
[2020-11-20 16:42] LABS: ARTERIAL BLD GAS O2 SATURATION 76.8 % (95-98); ARTERIAL BLOOD GAS BASE EXCESS -1.3 mmol/L (-2-2); ARTERIAL BLOOD GAS PO2 50.7 mmHg (80-100); ARTERIAL BLOOD GAS pH 7.211 (7.350-7.450)
[2020-11-20 16:44] LABS: ALLENS TEST POSITIVE
[2020-11-20 16:46] LABS: PT'S TEMP 98.2; VENT MODE A/C; VENT RATE 36
[2020-11-20] MEDS ORDERED: MEROPENEM 1 GM VIAL (RESTRICTED TO ID) IVPB ONE (18:41)
[2020-11-20] MEDS: MEROPENEM 1 GM in DEXTROSE 5%-WATER 100 ML IVPB SCH (18:47)
[2020-11-20] MEDS: REMDESIVIR 100 MG in SODIUM CHLORIDE 250 ML IVPB SCH (18:48)
[2020-11-20 19:02] LABS: ARTERIAL BLD GAS O2 SATURATION 81.6 % (95-98); ARTERIAL BLOOD GAS BASE EXCESS -1.6 mmol/L (-2-2); ARTERIAL BLOOD GAS PO2 55.5 mmHg (80-100); ARTERIAL BLOOD GAS pH 7.216 (7.350-7.450)
[2020-11-20 19:05] LABS: ALLENS TEST POSITIVE
[2020-11-20 19:08] LABS: VENT MODE A/C; VENT RATE 36
[2020-11-20] MEDS ORDERED: PROPOFOL 1,000,000 MCG/100 ML VIAL ONE (19:18)
[2020-11-20] MEDS ORDERED: VASOPRESSIN 20 UNITS/ML VIAL IV ONE (19:19)
[2020-11-20] MEDS: VASOPRESSIN 40 UNITS/100 ML BAG IV SCH (20:00)
[2020-11-20] MEDS ORDERED: NOREPINEPHRINE BITARTRATE 16,000 MCG in SODIUM CHLORIDE 484 ML IV SCH (21:45)
[2020-11-20] MEDS ORDERED: NOREPINEPHRINE NS PREMIX 16,000 MCG/500 ML BAG IVPB SCH (21:48)
[2020-11-21] MEDS ORDERED: MEROPENEM 1 GM VIAL (RESTRICTED TO ID) IVPB ONE ×4 (02:02→21:01)
[2020-11-21] MEDS ORDERED: DEXTROSE 5%-WATER 100 ML IVPB ONE ×4 (02:03→21:01)
[2020-11-21] MEDS ORDERED: PT OWN MED DRAWER 7, Y5N ONE ×4 (02:04→15:52)
[2020-11-21] MEDS: CHLORHEXIDINE GLUCONATE 4% CLEANSER FOR DECOLONIZATION TP SCH ×2 (02:07→22:56)
[2020-11-21] MEDS: PRAMIPEXOLE DIHYDROCHLORIDE 0.25 MG TABLET PO SCH (02:07)
[2020-11-21] MEDS: APIXABAN 5 MG TABLET PO SCH ×3 (02:07→22:56)
[2020-11-21] MEDS: ROSUVASTATIN CA 10 MG TABLET (FP) PO SCH ×2 (02:08→22:56)
[2020-11-21] MEDS: MONTELUKAST NA 10 MG TABLET PO SCH ×2 (02:08→22:56)
[2020-11-21] MEDS: ZINC SULFATE 220 MG CAPSULE (FP) PO SCH ×3 (02:08→22:56)
[2020-11-21] MEDS: PANTOPRAZOLE SODIUM 40 MG VIAL IVPUSH SCH ×3 (02:08→22:56)
[2020-11-21] MEDS: MUPIROCIN 2% TOPICAL OINTMENT FOR DECOLONIZATION NS SCH ×2 (02:08→09:29)
[2020-11-21] MEDS: DULoxetine HCL 30 MG CAPSULE.DR PO SCH (02:08)
[2020-11-21] MEDS: MEROPENEM 1 GM in DEXTROSE 5%-WATER 100 ML IVPB SCH ×3 (02:09→17:00)
[2020-11-21] MEDS: BUDESONIDE/FORMETEROL FUMARATE 160/4.5 mcg INHALER IH SCH ×2 (02:09→09:32)
[2020-11-21] MEDS: ASCORBIC ACID 500 MG TABLET (FP) PO SCH ×3 (02:09→22:56)
[2020-11-21] MEDS: INSULIN SLIDING SCALE (NOVOLOG) 1 VIAL SQ SCH ×4 (02:31→17:12)
[2020-11-21 02:35] LABS: VENOUS BASE EXCESS 0.5 mmol/L (-2-2); VENOUS O2 SATURATION 96.4 % (70-80); VENOUS PCO2 63.9 mmHg (38-52); VENOUS PH 7.265 (7.310-7.410)
[2020-11-21] MEDS ORDERED: PIPERACILLIN/TAZOB 4.5 GM 4.5 GM in DEXTROSE 5%-WATER 100 ML IVPB SCH (03:00)
[2020-11-21 06:26] LABS: ARTERIAL BLOOD GAS BASE EXCESS 0.4 mmol/L (-2-2); ARTERIAL BLOOD GAS PO2 56.3 mmHg (80-100)
[2020-11-21 06:39] LABS: BASO % 0.1 % (0-2.0); HEMATOCRIT 32.1 % (32.4-45.2); HEMOGLOBIN 10.5 GM/dL (10.7-15.3); LYMPH % 4.5 % (8-40); MCH 27.6 pg (25.7-33.7); MCHC 32.8 g/dl (32.0-36.0); MEAN CELL VOLUME 84.2 fl (80-96); MEAN PLT VOLUME 7.8 fl (7.5-11.1); MONO % 5.2 % (3.8-10.2); NEUT % 90.2 % (42.8-82.8); PLATELET COUNT 557 10^3/uL (134-434); RBC 3.81 M/mm3 (3.60-5.2); RDW 14.5 % (11.6-15.6); WHITE BLOOD COUNT 18.4 K/mm3 (4.0-10.0)
[2020-11-21] MEDS ORDERED: METOPROLOL TARTRATE 5 MG/5 ML VIAL IVPUSH ONE (06:43)
[2020-11-21 06:58] LABS: ALBUMIN 1.7 g/dl (3.4-5.0)
[2020-11-21 06:59] LABS: BLOOD UREA NITROGEN 33.4 mg/dL (7-18); CALCIUM 8.1 mg/dL (8.5-10.1)
[2020-11-21 07:00] LABS: MAGNESIUM 2.2 mg/dL (1.8-2.4)
[2020-11-21 07:01] LABS: CREATININE 1.1 mg/dL (0.55-1.3)
[2020-11-21 07:04] LABS: TOT PROT 5.9 g/dl (6.4-8.2)
[2020-11-21 07:07] LABS: BILIRUBIN,TOTAL 0.3 mg/dL (0.2-1)
[2020-11-21 07:27] LABS: VENT MODE A/C; VENT RATE 36
[2020-11-21] MEDS: AMINO ACIDS/PROTEIN HYDROLYS 30 ML LIQUID.PKT PO SCH ×2 (08:35→17:13)
[2020-11-21] MEDS: ASPIRIN 81 MG CHEWABLE TABLETS PO SCH (09:29)
[2020-11-21] MEDS: MULTIVIT-MINERALS ORAL LIQUID PO SCH (09:30)
[2020-11-21] MEDS: DEXAMETHASONE SOD PHOSPHATE 4 MG/1 ML VIAL IVPUSH SCH (09:30)
[2020-11-21] MEDS: TIOTROPIUM BROMIDE 2.5 MCG (SPIRIVA) RESPIMAT INHALER IH SCH (09:32)
[2020-11-21] MEDS: CHOLECALCIFEROL (VIT D3) 5000 UNITS (125 MCG) CAP PO SCH (09:34)
[2020-11-21] MEDS: BARICITINIB 1 MG/10 ML LIQUID NGT SCH (10:52)
[2020-11-21] MEDS: FENTANYL NS IVPB 500 MCG/100 ML BAG IVPB SCH ×2 (11:10→17:13)
[2020-11-21] MEDS: PROPOFOL 1,000,000 MCG/100 ML VIAL IVPB SCH ×2 (11:53→15:47)
[2020-11-21] MEDS: ALBUTEROL SO4 2.5/IPRATROPIUM 0.5 INH SOL 3 ML VIAL.NEB. NEB SCH ×2 (13:44→20:30)
[2020-11-21] MEDS ORDERED: METOPROLOL TARTRATE 5 MG/5 ML VIAL IVPUSH SCH (15:00)
[2020-11-21] MEDS: REMDESIVIR 100 MG in SODIUM CHLORIDE 250 ML IVPB SCH (17:13)
[2020-11-21] MEDS: VECURONIUM BROMIDE 100 MG/100 ML BAG IVPB SCH (17:53)
[2020-11-21] MEDS: BUDESONIDE 0.25 MG/2ML INH SUSP VIAL NEB SCH (20:30)
[2020-11-21] MEDS: VASOPRESSIN 40 UNITS/100 ML BAG IV SCH (22:56)
[2020-11-22] MEDS: INSULIN SLIDING SCALE (NOVOLOG) 1 VIAL SQ SCH ×5 (00:02→23:20)
[2020-11-22] MEDS: MEROPENEM 1 GM in DEXTROSE 5%-WATER 100 ML IVPB SCH ×3 (01:18→17:06)
[2020-11-22 06:44] LABS: ARTERIAL BLD GAS O2 SATURATION 95.1 % (95-98); ARTERIAL BLOOD GAS BASE EXCESS -3.4 mmol/L (-2-2); ARTERIAL BLOOD GAS PO2 94.3 mmHg (80-100)
[2020-11-22 07:09] LABS: ARTERIAL BLOOD GAS pH 7.188 (7.350-7.450)
[2020-11-22 07:10] LABS: VENT MODE A/C; VENT RATE 36
[2020-11-22 07:15] LABS: HEMATOCRIT 25.6 % (32.4-45.2); HEMOGLOBIN 8.3 GM/dL (10.7-15.3); MCH 27.7 pg (25.7-33.7); MCHC 32.2 g/dl (32.0-36.0); MEAN CELL VOLUME 85.8 fl (80-96); MEAN PLT VOLUME 7.9 fl (7.5-11.1); PLATELET COUNT 448 10^3/uL (134-434); RBC 2.98 M/mm3 (3.60-5.2); RDW 14.6 % (11.6-15.6); WHITE BLOOD COUNT 12.5 K/mm3 (4.0-10.0)
[2020-11-22 07:24] LABS: BLOOD UREA NITROGEN 54.6 mg/dL (7-18); CALCIUM 7.9 mg/dL (8.5-10.1)
[2020-11-22 07:27] LABS: CREATININE 1.4 mg/dL (0.55-1.3)
[2020-11-22 07:29] LABS: BILIRUBIN,TOTAL 0.2 mg/dL (0.2-1)
[2020-11-22 07:32] LABS: ALBUMIN 1.3 g/dl (3.4-5.0)
[2020-11-22] MEDS: BUDESONIDE 0.25 MG/2ML INH SUSP VIAL NEB SCH ×2 (07:45→20:26)
[2020-11-22] MEDS: ALBUTEROL SO4 2.5/IPRATROPIUM 0.5 INH SOL 3 ML VIAL.NEB. NEB SCH ×3 (07:45→20:25)
[2020-11-22] MEDS ORDERED: MEROPENEM 1 GM VIAL (RESTRICTED TO ID) IVPB ONE ×2 (07:47→16:10)
[2020-11-22] MEDS ORDERED: DEXTROSE 5%-WATER 100 ML IVPB ONE ×2 (07:48→16:10)
[2020-11-22] MEDS ORDERED: PT OWN MED DRAWER 7, Y5N ONE (07:50)
[2020-11-22 08:52] LABS: ANISOCYTOSIS 2+; MACROCYTOSIS 0; PLATELET ESTIMATE NORMAL
[2020-11-22] MEDS: AMINO ACIDS/PROTEIN HYDROLYS 30 ML LIQUID.PKT PO SCH ×2 (09:00→17:06)
[2020-11-22] MEDS: ASPIRIN 81 MG CHEWABLE TABLETS PO SCH (09:43)
[2020-11-22] MEDS: MULTIVIT-MINERALS ORAL LIQUID PO SCH (09:43)
[2020-11-22] MEDS: DEXAMETHASONE SOD PHOSPHATE 4 MG/1 ML VIAL IVPUSH SCH (09:44)
[2020-11-22] MEDS: PANTOPRAZOLE SODIUM 40 MG VIAL IVPUSH SCH ×2 (09:45→23:19)
[2020-11-22] MEDS: ZINC SULFATE 220 MG CAPSULE (FP) PO SCH ×2 (09:45→23:20)
[2020-11-22] MEDS: PROPOFOL 1,000,000 MCG/100 ML VIAL IVPB SCH ×2 (09:46→13:30)
[2020-11-22] MEDS: CHOLECALCIFEROL (VIT D3) 5000 UNITS (125 MCG) CAP PO SCH (09:46)
[2020-11-22] MEDS: ASCORBIC ACID 500 MG TABLET (FP) PO SCH ×2 (09:46→23:19)
[2020-11-22] MEDS: BARICITINIB 1 MG/10 ML LIQUID NGT SCH (09:50)
[2020-11-22] MEDS ORDERED: SODIUM BICARBONATE 8.4% 50 MEQ/50 ML VIAL IVPUSH ONE ×2 (14:17→22:00)
[2020-11-22] MEDS: VECURONIUM BROMIDE 100 MG/100 ML BAG IVPB SCH (16:00)
[2020-11-22 16:52] LABS: HEMOGLOBIN 7.9 GM/dL (10.7-15.3); MCH 27.9 pg (25.7-33.7); MCHC 32.8 g/dl (32.0-36.0); MEAN CELL VOLUME 85.2 fl (80-96); MEAN PLT VOLUME 8.2 fl (7.5-11.1); PLATELET COUNT 411 10^3/uL (134-434); RBC 2.81 M/mm3 (3.60-5.2); RDW 14.7 % (11.6-15.6); WHITE BLOOD COUNT 12.3 K/mm3 (4.0-10.0)
[2020-11-22] MEDS: FENTANYL NS IVPB 500 MCG/100 ML BAG IVPB SCH (17:05)
[2020-11-22] MEDS: NOREPINEPHRINE NS PREMIX 8,000 MCG/500 ML BAG IVPB SCH ×2 (17:41→22:03)
[2020-11-22] MEDS ORDERED: LABETALOL HCL 5 MG/1 ML (100MG/20 ML VIAL) IVPUSH ONE (19:29)
[2020-11-22 20:49] LABS: HEMOGLOBIN 7.6 GM/dL (10.7-15.3); MCH 27.9 pg (25.7-33.7); MEAN CELL VOLUME 84.6 fl (80-96); MEAN PLT VOLUME 7.8 fl (7.5-11.1); PLATELET COUNT 389 10^3/uL (134-434); RBC 2.71 M/mm3 (3.60-5.2); RDW 14.6 % (11.6-15.6); WHITE BLOOD COUNT 8.7 K/mm3 (4.0-10.0)
[2020-11-22 21:45] LABS: ANISOCYTOSIS 0; MACROCYTOSIS 0; PLATELET ESTIMATE NORMAL
[2020-11-22] MEDS: CHLORHEXIDINE GLUCONATE 4% CLEANSER FOR DECOLONIZATION TP SCH (23:20)
[2020-11-22] MEDS: MONTELUKAST NA 10 MG TABLET PO SCH (23:20)
[2020-11-22] MEDS: ROSUVASTATIN CA 10 MG TABLET (FP) PO SCH (23:20)
[2020-11-23] MEDS: VASOPRESSIN 40 UNITS/100 ML BAG IV SCH ×2 (00:13→22:48)
[2020-11-23] MEDS ORDERED: MEROPENEM 1 GM VIAL (RESTRICTED TO ID) IVPB ONE ×3 (02:00→17:40)
[2020-11-23] MEDS ORDERED: DEXTROSE 5%-WATER 100 ML IVPB ONE ×3 (02:00→17:40)
[2020-11-23] MEDS: MEROPENEM 1 GM in DEXTROSE 5%-WATER 100 ML IVPB SCH ×3 (02:06→17:45)
[2020-11-23 06:11] LABS: ARTERIAL BLD GAS O2 SATURATION 90.8 % (95-98); ARTERIAL BLOOD GAS PO2 80.4 mmHg (80-100)
[2020-11-23 06:14] LABS: ARTERIAL BLOOD GAS pH 7.122 (7.350-7.450); VENT MODE V-A/C; VENT RATE 36
[2020-11-23] MEDS: INSULIN SLIDING SCALE (NOVOLOG) 1 VIAL SQ SCH ×4 (06:30→22:59)
[2020-11-23] MEDS ORDERED: LABETALOL HCL 5 MG/1 ML (100MG/20 ML VIAL) IVPUSH ONE ×2 (06:43→17:50)
[2020-11-23 06:57] LABS: HEMATOCRIT 29.2 % (32.4-45.2); HEMOGLOBIN 9.8 GM/dL (10.7-15.3); MCH 28.3 pg (25.7-33.7); MCHC 33.5 g/dl (32.0-36.0); MEAN CELL VOLUME 84.6 fl (80-96); PLATELET COUNT 514 10^3/uL (134-434); RBC 3.45 M/mm3 (3.60-5.2); RDW 14.7 % (11.6-15.6); WHITE BLOOD COUNT 15.6 K/mm3 (4.0-10.0)
[2020-11-23 07:08] LABS: INR 1.17 (0.83-1.09); PROTHROMBIN TIME (PATIENT) 14.1 SEC (9.7-13.0)
[2020-11-23 07:10] LABS: ACTIVATED PTT 24.9 SECONDS (25.2-36.5)
[2020-11-23 07:21] LABS: CALCIUM 8.1 mg/dL (8.5-10.1)
[2020-11-23 07:22] LABS: BLOOD UREA NITROGEN 78.3 mg/dL (7-18)
[2020-11-23 07:25] LABS: CREATININE 1.6 mg/dL (0.55-1.3)
[2020-11-23 07:26] LABS: BILIRUBIN,TOTAL 0.3 mg/dL (0.2-1)
[2020-11-23 07:27] LABS: TOT PROT 5.6 g/dl (6.4-8.2)
[2020-11-23 07:28] LABS: ALBUMIN 1.7 g/dl (3.4-5.0)
[2020-11-23] MEDS: ALBUTEROL SO4 2.5/IPRATROPIUM 0.5 INH SOL 3 ML VIAL.NEB. NEB SCH ×3 (08:00→20:20)
[2020-11-23] MEDS: BUDESONIDE 0.25 MG/2ML INH SUSP VIAL NEB SCH ×2 (08:00→20:20)
[2020-11-23] MEDS: AMINO ACIDS/PROTEIN HYDROLYS 30 ML LIQUID.PKT PO SCH ×2 (08:43→16:54)
[2020-11-23 09:19] LABS: ANISOCYTOSIS 0; MACROCYTOSIS 0; PLATELET ESTIMATE INCREASED
[2020-11-23] MEDS: PANTOPRAZOLE SODIUM 40 MG VIAL IVPUSH SCH ×2 (10:31→22:47)
[2020-11-23] MEDS: DEXAMETHASONE SOD PHOSPHATE 4 MG/1 ML VIAL IVPUSH SCH (10:31)
[2020-11-23] MEDS: ASCORBIC ACID 500 MG TABLET (FP) PO SCH ×3 (10:32→22:47)
[2020-11-23] MEDS: CHOLECALCIFEROL (VIT D3) 5000 UNITS (125 MCG) CAP PO SCH ×2 (10:32→11:00)
[2020-11-23] MEDS: SODIUM BICARBONATE 8.4% 50 MEQ/50 ML DISP.SYRIN IVPUSH SCH ×3 (10:32→22:47)
[2020-11-23] MEDS: MULTIVIT-MINERALS ORAL LIQUID PO SCH ×2 (10:33→11:00)
[2020-11-23] MEDS: ZINC SULFATE 220 MG CAPSULE (FP) PO SCH ×3 (10:33→22:47)
[2020-11-23] MEDS: BARICITINIB 1 MG/10 ML LIQUID NGT SCH (10:59)
[2020-11-23] MEDS: WATER IV SCH ×2 (11:01→11:10)
[2020-11-23] MEDS: SODIUM BICARBONATE IV SCH ×2 (11:01→11:10)
[2020-11-23] MEDS: DEXTROSE 5% IV SCH ×2 (11:01→11:10)
[2020-11-23] MEDS: PROPOFOL 1,000,000 MCG/100 ML VIAL IVPB SCH ×2 (13:59→16:31)
[2020-11-23] MEDS: VECURONIUM BROMIDE 100 MG/100 ML BAG IVPB SCH ×2 (14:00→16:30)
[2020-11-23] MEDS: FENTANYL NS IVPB 500 MCG/100 ML BAG IVPB SCH ×2 (14:00→16:31)
[2020-11-23] MEDS ORDERED: SODIUM BICARBONATE 8.4% 50 MEQ/50 ML VIAL ONE (16:33)
[2020-11-23] MEDS: METOPROLOL TARTRATE 5 MG/5 ML VIAL IVPUSH PRN (16:36)
[2020-11-23] MEDS: NOREPINEPHRINE NS PREMIX 8,000 MCG/500 ML BAG IVPB SCH (17:45)
[2020-11-23] MEDS ORDERED: LABETALOL HCL 5 MG/1 ML (100MG/20 ML VIAL) ONE (17:53)
[2020-11-23] MEDS: ROSUVASTATIN CA 10 MG TABLET (FP) PO SCH (22:47)
[2020-11-23] MEDS: MONTELUKAST NA 10 MG TABLET PO SCH (22:47)
[2020-11-23] MEDS: CHLORHEXIDINE GLUCONATE 4% CLEANSER FOR DECOLONIZATION TP SCH (22:48)
[2020-11-24] MEDS: METOPROLOL TARTRATE 5 MG/5 ML VIAL IVPUSH PRN (00:50)
[2020-11-24] MEDS ORDERED: MEROPENEM 1 GM VIAL (RESTRICTED TO ID) IVPB ONE ×3 (01:22→17:09)
[2020-11-24] MEDS ORDERED: DEXTROSE 5%-WATER 100 ML IVPB ONE ×3 (01:23→17:10)
[2020-11-24] MEDS: MEROPENEM 1 GM in DEXTROSE 5%-WATER 100 ML IVPB SCH ×3 (01:25→17:29)
[2020-11-24] MEDS ORDERED: LABETALOL HCL 5 MG/1 ML (100MG/20 ML VIAL) IVPUSH ONE ×2 (02:01→06:39)
[2020-11-24] MEDS: SODIUM BICARBONATE 8.4% 50 MEQ/50 ML DISP.SYRIN IVPUSH SCH ×3 (05:10→17:35)
[2020-11-24] MEDS: INSULIN SLIDING SCALE (NOVOLOG) 1 VIAL SQ SCH ×4 (06:07→22:26)
[2020-11-24 06:59] LABS: ARTERIAL BLD GAS O2 SATURATION 88.2 % (95-98); ARTERIAL BLOOD GAS BASE EXCESS 14.2 mmol/L (-2-2); ARTERIAL BLOOD GAS PO2 55.1 mmHg (80-100); ARTERIAL BLOOD GAS pH 7.424 (7.350-7.450)
[2020-11-24 07:00] LABS: ALLENS TEST POSITIVE; PT'S TEMP 97.4; VENT MODE AC/VC; VENT RATE 36
[2020-11-24 07:13] LABS: INR 1.08 (0.83-1.09); PROTHROMBIN TIME (PATIENT) 13.2 SEC (9.7-13.0)
[2020-11-24 07:15] LABS: ACTIVATED PTT 23.7 SECONDS (25.2-36.5)
[2020-11-24 07:19] LABS: HEMATOCRIT 24.5 % (32.4-45.2); HEMOGLOBIN 8.1 GM/dL (10.7-15.3); MCH 27.6 pg (25.7-33.7); MEAN CELL VOLUME 83.5 fl (80-96); MEAN PLT VOLUME 8.1 fl (7.5-11.1); PLATELET COUNT 462 10^3/uL (134-434); RBC 2.94 M/mm3 (3.60-5.2); RDW 15.2 % (11.6-15.6); WHITE BLOOD COUNT 17.3 K/mm3 (4.0-10.0)
[2020-11-24 07:33] LABS: ALBUMIN 1.6 g/dl (3.4-5.0); BLOOD UREA NITROGEN 98.9 mg/dL (7-18); CALCIUM 7.8 mg/dL (8.5-10.1)
[2020-11-24 07:37] LABS: CREATININE 1.6 mg/dL (0.55-1.3)
[2020-11-24 07:38] LABS: BILIRUBIN,TOTAL 0.4 mg/dL (0.2-1); TOT PROT 5.2 g/dl (6.4-8.2)
[2020-11-24] MEDS: ALBUTEROL SO4 2.5/IPRATROPIUM 0.5 INH SOL 3 ML VIAL.NEB. NEB SCH ×3 (08:07→20:10)
[2020-11-24] MEDS: BUDESONIDE 0.25 MG/2ML INH SUSP VIAL NEB SCH ×2 (08:08→20:20)
[2020-11-24 09:03] LABS: ANISOCYTOSIS 1+; MACROCYTOSIS 0; PLATELET ESTIMATE NORMAL; TEAR DROP CELLS 1+
[2020-11-24] MEDS: AMINO ACIDS/PROTEIN HYDROLYS 30 ML LIQUID.PKT PO SCH ×2 (09:13→16:58)
[2020-11-24] MEDS: PANTOPRAZOLE SODIUM 40 MG VIAL IVPUSH SCH ×2 (10:28→22:26)
[2020-11-24] MEDS: DEXAMETHASONE SOD PHOSPHATE 4 MG/1 ML VIAL IVPUSH SCH (10:29)
[2020-11-24] MEDS: ZINC SULFATE 220 MG CAPSULE (FP) PO SCH ×2 (12:22→22:26)
[2020-11-24] MEDS: MULTIVIT-MINERALS ORAL LIQUID PO SCH (12:22)
[2020-11-24] MEDS: ASCORBIC ACID 500 MG TABLET (FP) PO SCH (12:23)
[2020-11-24] MEDS: CHOLECALCIFEROL (VIT D3) 5000 UNITS (125 MCG) CAP PO SCH (12:23)
[2020-11-24] MEDS: BARICITINIB 1 MG/10 ML LIQUID NGT SCH (12:30)
[2020-11-24] MEDS: SODIUM CHLORIDE 1,000 ML IV SCH (13:00)
[2020-11-24] MEDS: DEXTROSE 5% IV SCH (13:24)
[2020-11-24] MEDS: WATER IV SCH (13:24)
[2020-11-24] MEDS: SODIUM BICARBONATE IV SCH (13:24)
[2020-11-24] MEDS: FENTANYL NS IVPB 500 MCG/100 ML BAG IVPB SCH ×4 (15:43→21:00)
[2020-11-24] MEDS: VECURONIUM BROMIDE 100 MG/100 ML BAG IVPB SCH ×3 (15:44→17:24)
[2020-11-24 16:20] LABS: HEMATOCRIT 23.4 % (32.4-45.2); HEMOGLOBIN 7.6 GM/dL (10.7-15.3); MCH 27.8 pg (25.7-33.7); MCHC 32.7 g/dl (32.0-36.0); MEAN CELL VOLUME 84.9 fl (80-96); MEAN PLT VOLUME 8.4 fl (7.5-11.1); PLATELET COUNT 422 10^3/uL (134-434); RBC 2.75 M/mm3 (3.60-5.2); RDW 14.8 % (11.6-15.6)
[2020-11-24] MEDS: PROPOFOL 1,000,000 MCG/100 ML VIAL IVPB SCH ×2 (17:23→20:00)
[2020-11-24] MEDS: NOREPINEPHRINE NS PREMIX 8,000 MCG/500 ML BAG IVPB SCH ×2 (17:24→21:30)
[2020-11-24] MEDS: VASOPRESSIN 40 UNITS/100 ML BAG IV SCH (21:48)
[2020-11-24] MEDS: CHLORHEXIDINE GLUCONATE 4% CLEANSER FOR DECOLONIZATION TP SCH (22:27)
[2020-11-25] MEDS ORDERED: DEXTROSE 5%-WATER 100 ML IVPB ONE ×3 (01:01→16:54)
[2020-11-25] MEDS ORDERED: MEROPENEM 1 GM VIAL (RESTRICTED TO ID) IVPB ONE ×3 (01:01→16:54)
[2020-11-25] MEDS: MEROPENEM 1 GM in DEXTROSE 5%-WATER 100 ML IVPB SCH ×3 (01:04→17:55)
[2020-11-25] MEDS: INSULIN SLIDING SCALE (NOVOLOG) 1 VIAL SQ SCH ×3 (06:41→17:55)
[2020-11-25] MEDS: NOREPINEPHRINE NS PREMIX 16,000 MCG/500 ML BAG IVPB SCH (06:41)
[2020-11-25 07:10] LABS: CHLORIDE 102 mmol/L (98-107); SODIUM 141 mmol/L (136-145)
[2020-11-25 07:15] LABS: HEMATOCRIT 18.9 % (32.4-45.2); MCH 28.1 pg (25.7-33.7); MCHC 33.1 g/dl (32.0-36.0); MEAN PLT VOLUME 8.2 fl (7.5-11.1); PLATELET COUNT 406 10^3/uL (134-434); RBC 2.22 M/mm3 (3.60-5.2); RDW 14.9 % (11.6-15.6); WHITE BLOOD COUNT 19.1 K/mm3 (4.0-10.0)
[2020-11-25 07:16] LABS: ALBUMIN 1.5 g/dl (3.4-5.0); ANION GAP 3 MMOL/L (8-16); CALCIUM 7.4 mg/dL (8.5-10.1); CO2 36 mmol/L (21-32); GLUCOSE,RANDOM 261 mg/dL (74-106); MAGNESIUM 3.1 mg/dL (1.8-2.4)
[2020-11-25 07:17] LABS: SGPT/ALT 28 U/L (13-61)
[2020-11-25 07:18] LABS: SGOT/AST 47 U/L (15-37)
[2020-11-25 07:19] LABS: BILIRUBIN,TOTAL 0.3 mg/dL (0.2-1); CREATININE 2.4 mg/dL (0.55-1.3); TOT PROT 4.5 g/dl (6.4-8.2)
[2020-11-25 07:20] LABS: ALK PHOS 176 U/L (45-117); BLOOD UREA NITROGEN 147.6 mg/dL (7-18); PHOSPHOROUS 7.8 mg/dL (2.5-4.9)
[2020-11-25 07:23] LABS: ARTERIAL BLD GAS O2 SATURATION 94.6 % (95-98); ARTERIAL BLOOD GAS BASE EXCESS 5.3 mmol/L (-2-2); ARTERIAL BLOOD GAS PO2 90.4 mmHg (80-100); ARTERIAL BLOOD GAS pH 7.214 (7.350-7.450)
[2020-11-25 07:24] LABS: PT'S TEMP 97.7
[2020-11-25 07:25] LABS: VENT MODE A/C; VENT RATE 36
[2020-11-25 07:31] LABS: HEMOGLOBIN 6.2 GM/dL (10.7-15.3)
[2020-11-25] MEDS: ALBUTEROL SO4 2.5/IPRATROPIUM 0.5 INH SOL 3 ML VIAL.NEB. NEB SCH ×3 (08:00→20:00)
[2020-11-25] MEDS: BUDESONIDE 0.25 MG/2ML INH SUSP VIAL NEB SCH ×2 (08:00→20:00)
[2020-11-25] MEDS: AMINO ACIDS/PROTEIN HYDROLYS 30 ML LIQUID.PKT PO SCH (08:52)
[2020-11-25] MEDS: FENTANYL NS IVPB 500 MCG/100 ML BAG IVPB SCH ×3 (08:52→17:34)
[2020-11-25] MEDS ORDERED: PT OWN MED DRAWER 7, Y5N ONE ×2 (08:58→09:49)
[2020-11-25 09:04] LABS: ANISOCYTOSIS 1+; MACROCYTOSIS 0; OVALOCYTE 1+; PLATELET ESTIMATE NORMAL; TARGET CELLS 1+; TEAR DROP CELLS 1+
[2020-11-25] MEDS: DEXAMETHASONE SOD PHOSPHATE 4 MG/1 ML VIAL IVPUSH SCH (09:58)
[2020-11-25] MEDS: PANTOPRAZOLE SODIUM 40 MG VIAL IVPUSH SCH ×2 (09:58→23:01)
[2020-11-25] MEDS: ZINC SULFATE 220 MG CAPSULE (FP) PO SCH ×2 (09:59→23:02)
[2020-11-25] MEDS: PROPOFOL 1,000,000 MCG/100 ML VIAL IVPB SCH ×3 (10:00→17:30)
[2020-11-25] MEDS: VECURONIUM BROMIDE 100 MG/100 ML BAG IVPB SCH (11:00)
[2020-11-25] MEDS: SODIUM CHLORIDE 1,000 ML IV SCH (11:30)
[2020-11-25] MEDS ORDERED: INSULIN SLIDING SCALE (NOVOLOG) 1 VIAL SQ SCH ×2 (12:24→13:12)
[2020-11-25] MEDS ORDERED: DEXTROSE 50%-WATER - 25 GM/50 ML VIAL IVPUSH PRN (13:16)
[2020-11-25] MEDS ORDERED: INSULIN REGULAR 100 UNITS in SODIUM CHLORIDE 99 ML IVPB SCH (13:30)
[2020-11-25] MEDS: AMINO ACIDS 4.25%/D5W 1,000 ML IV SCH (14:01)
[2020-11-25 14:45] LABS: HEMATOCRIT 24.7 % (32.4-45.2); HEMOGLOBIN 8.4 GM/dL (10.7-15.3); MCHC 33.9 g/dl (32.0-36.0); MEAN CELL VOLUME 82.6 fl (80-96); MEAN PLT VOLUME 8.7 fl (7.5-11.1); PLATELET COUNT 401 10^3/uL (134-434); RDW 15.8 % (11.6-15.6); WHITE BLOOD COUNT 27.7 K/mm3 (4.0-10.0)
[2020-11-25 15:55] LABS: CHLORIDE 104 mmol/L (98-107); SODIUM 144 mmol/L (136-145)
[2020-11-25 15:56] LABS: CALCIUM 7.6 mg/dL (8.5-10.1)
[2020-11-25 15:57] LABS: ANION GAP 8 MMOL/L (8-16); CO2 33 mmol/L (21-32); GLUCOSE,RANDOM 253 mg/dL (74-106)
[2020-11-25] MEDS ORDERED: INSULIN REGULAR HUMAN 100 UNITS/ML *VIAL* (FOR IVP) IVPUSH ONE (15:58)
[2020-11-25] MEDS ORDERED: CALCIUM GLUCONATE 10% - 1,000 MG/10 ML VIAL IVPUSH ONE (15:58)
[2020-11-25] MEDS ORDERED: DEXTROSE 50%-WATER - 25 GM/50 ML VIAL IVPUSH ONE (15:59)
[2020-11-25 16:00] LABS: CREATININE 2.5 mg/dL (0.55-1.3)
[2020-11-25 16:01] LABS: BLOOD UREA NITROGEN 149.2 mg/dL (7-18)
[2020-11-25] MEDS ORDERED: INSULIN REGULAR HUMAN 100 UNITS/ML *VIAL ONE (16:17)
[2020-11-25] MEDS ORDERED: DEXTROSE 50%-WATER 25 GM/50 ML DISP.SYRIN ONE (16:18)
[2020-11-25 16:39] LABS: ANISOCYTOSIS 1+; MACROCYTOSIS 1+; OVALOCYTE 1+; PLATELET ESTIMATE NORMAL
[2020-11-25] MEDS: VASOPRESSIN 40 UNITS/100 ML BAG IV SCH (20:27)
[2020-11-25] MEDS: CHLORHEXIDINE GLUCONATE 4% CLEANSER FOR DECOLONIZATION TP SCH (23:02)
[2020-11-26] MEDS: PROPOFOL 1,000,000 MCG/100 ML VIAL IVPB SCH ×4 (01:00→23:03)
[2020-11-26 02:08] LABS: HEMOGLOBIN 7.4 GM/dL (10.7-15.3); MCH 27.5 pg (25.7-33.7); MCHC 33.8 g/dl (32.0-36.0); MEAN CELL VOLUME 81.4 fl (80-96); MEAN PLT VOLUME 8.2 fl (7.5-11.1); PLATELET COUNT 376 10^3/uL (134-434); RDW 16.4 % (11.6-15.6); WHITE BLOOD COUNT 27.2 K/mm3 (4.0-10.0)
[2020-11-26] MEDS ORDERED: DEXTROSE 5%-WATER 100 ML IVPB ONE ×3 (02:56→21:05)
[2020-11-26] MEDS ORDERED: MEROPENEM 1 GM VIAL (RESTRICTED TO ID) IVPB ONE ×3 (02:56→21:05)
[2020-11-26] MEDS: MEROPENEM 1 GM in DEXTROSE 5%-WATER 100 ML IVPB SCH ×3 (02:57→22:13)
[2020-11-26] MEDS ORDERED: DEXTROSE 50%-WATER - 25 GM/50 ML VIAL IVPUSH ONE ×2 (03:02→11:33)
[2020-11-26] MEDS ORDERED: CALCIUM GLUCONATE 10% - 1,000 MG/10 ML VIAL IVPUSH ONE (03:11)
[2020-11-26] MEDS: FENTANYL NS IVPB 500 MCG/100 ML BAG IVPB SCH ×5 (03:14→23:03)
[2020-11-26] MEDS ORDERED: INSULIN REGULAR HUMAN 100 UNITS/ML *VIAL IVPUSH ONE ×2 (03:15→11:33)
[2020-11-26 05:47] LABS: ARTERIAL BLD GAS O2 SATURATION 95.2 % (95-98); ARTERIAL BLOOD GAS PO2 95.8 mmHg (80-100)
[2020-11-26 05:54] LABS: ALLENS TEST POSITIVE
[2020-11-26 05:55] LABS: VENT MODE A/C; VENT RATE 36
[2020-11-26 05:57] LABS: ARTERIAL BLOOD GAS pH 7.181 (7.350-7.450)
[2020-11-26] MEDS: NOREPINEPHRINE NS PREMIX 16,000 MCG/500 ML BAG IVPB SCH (06:13)
[2020-11-26] MEDS: INSULIN SLIDING SCALE (NOVOLOG) 1 VIAL SQ SCH ×5 (06:43→22:42)
[2020-11-26] MEDS: BUDESONIDE 0.25 MG/2ML INH SUSP VIAL NEB SCH ×2 (07:45→20:30)
[2020-11-26] MEDS: ALBUTEROL SO4 2.5/IPRATROPIUM 0.5 INH SOL 3 ML VIAL.NEB. NEB SCH ×3 (07:45→20:30)
[2020-11-26 08:21] LABS: HEMATOCRIT 20.2 % (32.4-45.2); INR 0.94 (0.83-1.09); MEAN CELL VOLUME 82.4 fl (80-96); MEAN PLT VOLUME 8.9 fl (7.5-11.1); PLATELET COUNT 371 10^3/uL (134-434); PROTHROMBIN TIME (PATIENT) 11.4 SEC (9.7-13.0); RBC 2.45 M/mm3 (3.60-5.2); RDW 16.3 % (11.6-15.6); WHITE BLOOD COUNT 25.7 K/mm3 (4.0-10.0)
[2020-11-26 08:23] LABS: ACTIVATED PTT 22.5 SECONDS (25.2-36.5)
[2020-11-26 08:30] LABS: HEMOGLOBIN 6.9 GM/dL (10.7-15.3)
[2020-11-26 08:34] LABS: CHLORIDE 102 mmol/L (98-107); SODIUM 141 mmol/L (136-145)
[2020-11-26 08:36] LABS: ALBUMIN 1.6 g/dl (3.4-5.0); ANION GAP 6 MMOL/L (8-16); CALCIUM 7.8 mg/dL (8.5-10.1); CO2 33 mmol/L (21-32); GLUCOSE,RANDOM 227 mg/dL (74-106)
[2020-11-26 08:39] LABS: CREATININE 2.7 mg/dL (0.55-1.3); SGOT/AST 41 U/L (15-37); SGPT/ALT 28 U/L (13-61)
[2020-11-26 08:41] LABS: BILIRUBIN,TOTAL 0.4 mg/dL (0.2-1); TOT PROT 4.5 g/dl (6.4-8.2)
[2020-11-26 09:21] LABS: ANISOCYTOSIS 2+; MACROCYTOSIS 0; PLATELET ESTIMATE NORMAL
[2020-11-26 09:30] LABS: ALK PHOS 145 U/L (45-117); BLOOD UREA NITROGEN 176.2 mg/dL (7-18)
[2020-11-26] MEDS: PANTOPRAZOLE SODIUM 40 MG VIAL IVPUSH SCH ×2 (10:33→22:14)
[2020-11-26] MEDS: DEXAMETHASONE SOD PHOSPHATE 4 MG/1 ML VIAL IVPUSH SCH ×2 (10:35→10:43)
[2020-11-26] MEDS ORDERED: SODIUM BICARBONATE 8.4% 50 MEQ/50 ML DISP.SYRIN IVPUSH ONE (11:33)
[2020-11-26] MEDS: ZINC SULFATE 220 MG CAPSULE (FP) PO SCH ×2 (12:17→22:14)
[2020-11-26] MEDS ORDERED: DEXTROSE 50%-WATER 25 GM/50 ML DISP.SYRIN ONE (12:21)
[2020-11-26] MEDS ORDERED: SODIUM CHLORIDE 250 ML IV PRN (15:30)
[2020-11-26] MEDS: ALBUMIN HUMAN 25% 12.5 GM/50 ML VIAL IVPB SCH ×4 (15:35→17:00)
[2020-11-26] MEDS: AMINO ACIDS 4.25%/D5W 1,000 ML IV SCH (16:17)
[2020-11-26] MEDS: VECURONIUM BROMIDE 100 MG/100 ML BAG IVPB SCH (17:17)
[2020-11-26] MEDS: CHLORHEXIDINE GLUCONATE 4% CLEANSER FOR DECOLONIZATION TP SCH (22:14)
[2020-11-26] MEDS: VASOPRESSIN 40 UNITS/100 ML BAG IV SCH (22:15)
[2020-11-27] MEDS: NOREPINEPHRINE NS PREMIX 16,000 MCG/500 ML BAG IVPB SCH (05:52)
[2020-11-27] MEDS: PROPOFOL 1,000,000 MCG/100 ML VIAL IVPB SCH ×3 (07:23→21:22)
[2020-11-27] MEDS: BUDESONIDE 0.25 MG/2ML INH SUSP VIAL NEB SCH ×2 (07:50→20:27)
[2020-11-27] MEDS: ALBUTEROL SO4 2.5/IPRATROPIUM 0.5 INH SOL 3 ML VIAL.NEB. NEB SCH ×3 (07:50→20:27)
[2020-11-27 08:05] LABS: CALCIUM 7.1 mg/dL (8.5-10.1)
[2020-11-27 08:06] LABS: ALBUMIN 1.7 g/dl (3.4-5.0); MAGNESIUM 2.3 mg/dL (1.8-2.4)
[2020-11-27 08:09] LABS: CREATININE 1.7 mg/dL (0.55-1.3); PHOSPHOROUS 5.9 mg/dL (2.5-4.9)
[2020-11-27 08:10] LABS: BILIRUBIN,TOTAL 0.4 mg/dL (0.2-1); TOT PROT 4.4 g/dl (6.4-8.2)
[2020-11-27 08:11] LABS: INR 0.91 (0.83-1.09); PROTHROMBIN TIME (PATIENT) 11.2 SEC (9.7-13.0)
[2020-11-27 08:13] LABS: ACTIVATED PTT 22.7 SECONDS (25.2-36.5)
[2020-11-27 08:17] LABS: BLOOD UREA NITROGEN 96.5 mg/dL (7-18)
[2020-11-27] MEDS ORDERED: MEROPENEM 1 GM VIAL (RESTRICTED TO ID) IVPB ONE ×2 (08:50→21:01)
[2020-11-27] MEDS ORDERED: DEXTROSE 5%-WATER 100 ML IVPB ONE ×2 (08:51→21:01)
[2020-11-27] MEDS: MEROPENEM 1 GM in DEXTROSE 5%-WATER 100 ML IVPB SCH ×2 (09:06→21:12)
[2020-11-27] MEDS: DEXAMETHASONE SOD PHOSPHATE 4 MG/1 ML VIAL IVPUSH SCH (09:06)
[2020-11-27] MEDS: PANTOPRAZOLE SODIUM 40 MG VIAL IVPUSH SCH ×2 (09:06→21:12)
[2020-11-27] MEDS: ZINC SULFATE 220 MG CAPSULE (FP) PO SCH ×2 (09:06→21:12)
[2020-11-27] MEDS: INSULIN SLIDING SCALE (NOVOLOG) 1 VIAL SQ SCH ×5 (09:08→21:21)
[2020-11-27 11:09] LABS: HEMATOCRIT 22.1 % (32.4-45.2); HEMOGLOBIN 7.7 GM/dL (10.7-15.3); MCH 28.8 pg (25.7-33.7); MCHC 34.8 g/dl (32.0-36.0); MEAN CELL VOLUME 82.8 fl (80-96); MEAN PLT VOLUME 8.9 fl (7.5-11.1); PLATELET COUNT 297 10^3/uL (134-434); RBC 2.68 M/mm3 (3.60-5.2); RDW 15.4 % (11.6-15.6); WHITE BLOOD COUNT 19.7 K/mm3 (4.0-10.0)
[2020-11-27 11:42] LABS: ARTERIAL BLOOD GAS BASE EXCESS 1.4 mmol/L (-2-2); ARTERIAL BLOOD GAS PO2 59.7 mmHg (80-100); ARTERIAL BLOOD GAS pH 7.283 (7.350-7.450)
[2020-11-27 11:43] LABS: ALLENS TEST POSITIVE
[2020-11-27 11:44] LABS: VENT MODE AC; VENT RATE 36
[2020-11-27 14:49] LABS: ANISOCYTOSIS 0; CORRECTED WBC 16.84 K/mm3; MACROCYTOSIS 0; PLATELET ESTIMATE NORMAL
[2020-11-27] MEDS: AMINO ACIDS 4.25%/D5W 1,000 ML IV SCH (15:43)
[2020-11-27] MEDS: FENTANYL NS IVPB 500 MCG/100 ML BAG IVPB SCH (17:21)
[2020-11-27 20:01] LABS: HEMATOCRIT 24.3 % (32.4-45.2); HEMOGLOBIN 8.1 GM/dL (10.7-15.3); MCH 27.9 pg (25.7-33.7); MCHC 33.3 g/dl (32.0-36.0); MEAN CELL VOLUME 83.7 fl (80-96); MEAN PLT VOLUME 9.5 fl (7.5-11.1); PLATELET COUNT 369 10^3/uL (134-434); RBC 2.91 M/mm3 (3.60-5.2); RDW 15.7 % (11.6-15.6)
[2020-11-27 20:04] LABS: WHITE BLOOD COUNT 30.5 K/mm3 (4.0-10.0)
[2020-11-27] MEDS: VECURONIUM BROMIDE 100 MG/100 ML BAG IVPB SCH (21:22)
[2020-11-27] MEDS: CHLORHEXIDINE GLUCONATE 4% CLEANSER FOR DECOLONIZATION TP SCH (21:22)
[2020-11-27] MEDS: VASOPRESSIN 40 UNITS/100 ML BAG IV SCH (21:22)
[2020-11-28] MEDS: FENTANYL NS IVPB 500 MCG/100 ML BAG IVPB SCH ×4 (04:45→23:34)
[2020-11-28] MEDS: INSULIN SLIDING SCALE (NOVOLOG) 1 VIAL SQ SCH ×5 (06:20→21:22)
[2020-11-28] MEDS: NOREPINEPHRINE NS PREMIX 16,000 MCG/500 ML BAG IVPB SCH ×2 (06:20→22:00)
[2020-11-28 07:05] LABS: ARTERIAL BLD GAS O2 SATURATION 91.7 % (95-98); ARTERIAL BLOOD GAS BASE EXCESS -4.2 mmol/L (-2-2); ARTERIAL BLOOD GAS PO2 83.9 mmHg (80-100)
[2020-11-28 07:25] LABS: VENT MODE A/C; VENT RATE 30
[2020-11-28] MEDS: BUDESONIDE 0.25 MG/2ML INH SUSP VIAL NEB SCH ×2 (07:45→20:10)
[2020-11-28] MEDS: ALBUTEROL SO4 2.5/IPRATROPIUM 0.5 INH SOL 3 ML VIAL.NEB. NEB SCH ×3 (07:45→20:10)
[2020-11-28 07:53] LABS: HEMATOCRIT 22.1 % (32.4-45.2); HEMOGLOBIN 7.5 GM/dL (10.7-15.3); MCH 28.1 pg (25.7-33.7); MCHC 33.8 g/dl (32.0-36.0); MEAN CELL VOLUME 83.2 fl (80-96); MEAN PLT VOLUME 9.2 fl (7.5-11.1); PLATELET COUNT 341 10^3/uL (134-434); RBC 2.65 M/mm3 (3.60-5.2); RDW 15.6 % (11.6-15.6)
[2020-11-28 07:58] LABS: INR 0.91 (0.83-1.09); PROTHROMBIN TIME (PATIENT) 11.2 SEC (9.7-13.0)
[2020-11-28 08:00] LABS: ACTIVATED PTT 23.8 SECONDS (25.2-36.5)
[2020-11-28 08:01] LABS: ARTERIAL BLOOD GAS pH 7.112 (7.350-7.450)
[2020-11-28 08:32] LABS: LDH 588 U/L (84-246)
[2020-11-28 08:43] LABS: CHLORIDE 99 mmol/L (98-107); SODIUM 134 mmol/L (136-145)
[2020-11-28 08:45] LABS: CALCIUM 7.7 mg/dL (8.5-10.1)
[2020-11-28 08:46] LABS: ALBUMIN 1.6 g/dl (3.4-5.0); ANION GAP 8 MMOL/L (8-16); CO2 27 mmol/L (21-32); GLUCOSE,RANDOM 133 mg/dL (74-106)
[2020-11-28 08:48] LABS: CREATININE 2.5 mg/dL (0.55-1.3); IRON SERUM 40 ug/dL (50-175); SGOT/AST 61 U/L (15-37); SGPT/ALT 23 U/L (13-61)
[2020-11-28 08:51] LABS: BILIRUBIN,TOTAL 0.4 mg/dL (0.2-1); TOT PROT 4.5 g/dl (6.4-8.2); TOTAL IRON BINDING CAPACITY 284 ug/dL (250-450)
[2020-11-28 08:52] LABS: ALK PHOS 143 U/L (45-117)
[2020-11-28 08:53] LABS: BLOOD UREA NITROGEN 119.2 mg/dL (7-18)
[2020-11-28] MEDS: PROPOFOL 1,000,000 MCG/100 ML VIAL IVPB SCH ×4 (09:53→20:00)
[2020-11-28] MEDS ORDERED: MEROPENEM 1 GM VIAL (RESTRICTED TO ID) IVPB ONE ×2 (11:03→21:15)
[2020-11-28] MEDS ORDERED: DEXTROSE 5%-WATER 100 ML IVPB ONE ×2 (11:03→21:15)
[2020-11-28] MEDS: MEROPENEM 1 GM in DEXTROSE 5%-WATER 100 ML IVPB SCH ×2 (11:14→21:22)
[2020-11-28] MEDS: PANTOPRAZOLE SODIUM 40 MG VIAL IVPUSH SCH ×2 (11:16→21:22)
[2020-11-28] MEDS: DEXAMETHASONE SOD PHOSPHATE 4 MG/1 ML VIAL IVPUSH SCH (11:17)
[2020-11-28 11:25] LABS: ANISOCYTOSIS 1+; MACROCYTOSIS 0; OVALOCYTE 1+; PLATELET ESTIMATE NORMAL; SICKELED CELLS 1+; TEAR DROP CELLS 1+; TOXIC GRANULATION 1+
[2020-11-28 11:35] LABS: CORRECTED WBC 24.65 K/mm3
[2020-11-28 11:39] LABS: WHITE BLOOD COUNT 28.1 K/mm3 (4.0-10.0)
[2020-11-28] MEDS: SODIUM BICARBONATE 8.4% 50 MEQ/50 ML DISP.SYRIN IVPUSH SCH ×2 (13:28→21:23)
[2020-11-28 15:31] LABS: HEMATOCRIT 22.9 % (32.4-45.2); HEMOGLOBIN 7.6 GM/dL (10.7-15.3); MCH 27.6 pg (25.7-33.7); MCHC 33.3 g/dl (32.0-36.0); MEAN CELL VOLUME 82.7 fl (80-96); MEAN PLT VOLUME 8.9 fl (7.5-11.1); PLATELET COUNT 337 10^3/uL (134-434); RBC 2.77 M/mm3 (3.60-5.2); RDW 15.2 % (11.6-15.6)
[2020-11-28 15:49] LABS: WHITE BLOOD COUNT 32.3 K/mm3 (4.0-10.0)
[2020-11-28] MEDS: ZINC SULFATE 220 MG CAPSULE (FP) PO SCH ×2 (16:20→21:22)
[2020-11-28] MEDS: AMINO ACIDS 4.25%/D5W 1,000 ML IV SCH (16:22)
[2020-11-28 17:20] LABS: ANISOCYTOSIS 0; MACROCYTOSIS 0; PLATELET ESTIMATE NORMAL
[2020-11-28] MEDS ORDERED: SODIUM CHLORIDE 250 ML IV PRN (18:02)
[2020-11-28] MEDS: ALBUMIN HUMAN 25% 12.5 GM/50 ML VIAL IVPB SCH ×4 (18:43→23:33)
[2020-11-28] MEDS: VECURONIUM BROMIDE 100 MG/100 ML BAG IVPB SCH (21:22)
[2020-11-28] MEDS: CHLORHEXIDINE GLUCONATE 4% CLEANSER FOR DECOLONIZATION TP SCH (21:23)
[2020-11-28] MEDS: VASOPRESSIN 40 UNITS/100 ML BAG IV SCH (21:23)
[2020-11-29] MEDS: SODIUM BICARBONATE 8.4% 50 MEQ/50 ML DISP.SYRIN IVPUSH SCH ×3 (00:59→13:44)
[2020-11-29] MEDS ORDERED: SODIUM BICARBONATE 8.4% 50 MEQ/50 ML VIAL ONE (06:12)
[2020-11-29] MEDS: INSULIN SLIDING SCALE (NOVOLOG) 1 VIAL SQ SCH ×5 (06:16→21:06)
[2020-11-29] MEDS: NOREPINEPHRINE NS PREMIX 16,000 MCG/500 ML BAG IVPB SCH (06:16)
[2020-11-29 06:30] LABS: ARTERIAL BLD GAS O2 SATURATION 90.1 % (95-98); ARTERIAL BLOOD GAS BASE EXCESS 1.2 mmol/L (-2-2); ARTERIAL BLOOD GAS PO2 67.6 mmHg (80-100); ARTERIAL BLOOD GAS pH 7.261 (7.350-7.450)
[2020-11-29 06:31] LABS: ALLENS TEST POSITIVE
[2020-11-29 06:32] LABS: VENT MODE A/C; VENT RATE 36
[2020-11-29 07:15] LABS: HEMATOCRIT 17.9 % (32.4-45.2); MCH 28.6 pg (25.7-33.7); MCHC 34.5 g/dl (32.0-36.0); MEAN CELL VOLUME 82.9 fl (80-96); MEAN PLT VOLUME 9.3 fl (7.5-11.1); PLATELET COUNT 251 10^3/uL (134-434); RBC 2.16 M/mm3 (3.60-5.2); RDW 15.2 % (11.6-15.6); WHITE BLOOD COUNT 20.8 K/mm3 (4.0-10.0)
[2020-11-29] MEDS: PROPOFOL 1,000,000 MCG/100 ML VIAL IVPB SCH ×5 (07:30→21:00)
[2020-11-29 07:31] LABS: CHLORIDE 97 mmol/L (98-107); SODIUM 137 mmol/L (136-145)
[2020-11-29 07:39] LABS: CALCIUM 7.5 mg/dL (8.5-10.1); HEMOGLOBIN 6.2 GM/dL (10.7-15.3)
[2020-11-29 07:40] LABS: ANION GAP 11 MMOL/L (8-16); CO2 29 mmol/L (21-32); GLUCOSE,RANDOM 133 mg/dL (74-106); MAGNESIUM 2.2 mg/dL (1.8-2.4); PHOSPHOROUS 7.3 mg/dL (2.5-4.9)
[2020-11-29 07:41] LABS: SGOT/AST 55 U/L (15-37); SGPT/ALT 20 U/L (13-61)
[2020-11-29 07:43] LABS: BILIRUBIN,TOTAL 0.5 mg/dL (0.2-1); CREATININE 2.5 mg/dL (0.55-1.3); TOT PROT 4.8 g/dl (6.4-8.2)
[2020-11-29 07:44] LABS: ALK PHOS 128 U/L (45-117)
[2020-11-29 07:51] LABS: BLOOD UREA NITROGEN 110.6 mg/dL (7-18)
[2020-11-29] MEDS: ALBUTEROL SO4 2.5/IPRATROPIUM 0.5 INH SOL 3 ML VIAL.NEB. NEB SCH ×3 (08:14→20:41)
[2020-11-29] MEDS: BUDESONIDE 0.25 MG/2ML INH SUSP VIAL NEB SCH ×2 (08:15→20:42)
[2020-11-29] MEDS: FENTANYL NS IVPB 500 MCG/100 ML BAG IVPB SCH ×3 (09:00→23:30)
[2020-11-29] MEDS ORDERED: MEROPENEM 1 GM VIAL (RESTRICTED TO ID) IVPB ONE ×2 (09:26→21:01)
[2020-11-29] MEDS ORDERED: DEXTROSE 5%-WATER 100 ML IVPB ONE ×2 (09:26→21:01)
[2020-11-29] MEDS ORDERED: PT OWN MED DRAWER 7, Y5N ONE (09:28)
[2020-11-29] MEDS: ZINC SULFATE 220 MG CAPSULE (FP) PO SCH ×2 (09:30→21:03)
[2020-11-29] MEDS: MEROPENEM 1 GM in DEXTROSE 5%-WATER 100 ML IVPB SCH ×2 (09:30→21:03)
[2020-11-29] MEDS: PANTOPRAZOLE SODIUM 40 MG VIAL IVPUSH SCH ×2 (09:30→21:03)
[2020-11-29] MEDS: DEXAMETHASONE SOD PHOSPHATE 4 MG/1 ML VIAL IVPUSH SCH (09:30)
[2020-11-29 09:41] LABS: ANISOCYTOSIS 0; MACROCYTOSIS 0; PLATELET ESTIMATE NORMAL
[2020-11-29] MEDS ORDERED: FUROSEMIDE 40 MG/4 ML INJECTABLE VIAL IVPUSH ONE ×2 (10:51→18:00)
[2020-11-29] MEDS: VECURONIUM BROMIDE 100 MG/100 ML BAG IVPB SCH ×2 (16:10→16:11)
[2020-11-29] MEDS ORDERED: LABETALOL HCL 5 MG/1 ML (100MG/20 ML VIAL) IVPUSH ONE (18:27)
[2020-11-29] MEDS: VASOPRESSIN 40 UNITS/100 ML BAG IV SCH (19:12)
[2020-11-29 21:01] LABS: HEMATOCRIT 27.1 % (32.4-45.2); HEMOGLOBIN 9.5 GM/dL (10.7-15.3); MCHC 34.9 g/dl (32.0-36.0); MEAN PLT VOLUME 9.2 fl (7.5-11.1); PLATELET COUNT 243 10^3/uL (134-434); RBC 3.27 M/mm3 (3.60-5.2)
[2020-11-29] MEDS: CHLORHEXIDINE GLUCONATE 4% CLEANSER FOR DECOLONIZATION TP SCH (21:03)
[2020-11-29 22:03] LABS: ANISOCYTOSIS 0; MACROCYTOSIS 1+; PLATELET ESTIMATE NORMAL
[2020-11-30] MEDS: PROPOFOL 1,000,000 MCG/100 ML VIAL IVPB SCH ×5 (02:00→22:05)
[2020-11-30] MEDS: NOREPINEPHRINE NS PREMIX 16,000 MCG/500 ML BAG IVPB SCH (05:47)
[2020-11-30] MEDS: INSULIN SLIDING SCALE (NOVOLOG) 1 VIAL SQ SCH ×5 (05:51→22:19)
[2020-11-30 05:58] LABS: ARTERIAL BLD GAS O2 SATURATION 73.7 % (95-98); ARTERIAL BLOOD GAS BASE EXCESS -3.6 mmol/L (-2-2); ARTERIAL BLOOD GAS PO2 51.4 mmHg (80-100)
[2020-11-30 06:04] LABS: ALLENS TEST POSITIVE; VENT MODE A/C; VENT RATE 36
[2020-11-30 06:06] LABS: ARTERIAL BLOOD GAS pH 7.141 (7.350-7.450)
[2020-11-30 07:54] LABS: HEMATOCRIT 27.5 % (32.4-45.2); HEMOGLOBIN 9.4 GM/dL (10.7-15.3); MCH 28.4 pg (25.7-33.7); MCHC 34.2 g/dl (32.0-36.0); MEAN PLT VOLUME 9.3 fl (7.5-11.1); PLATELET COUNT 270 10^3/uL (134-434); RBC 3.32 M/mm3 (3.60-5.2); RDW 14.9 % (11.6-15.6); WHITE BLOOD COUNT 22.8 K/mm3 (4.0-10.0)
[2020-11-30 08:00] LABS: CHLORIDE 95 mmol/L (98-107); SODIUM 135 mmol/L (136-145)
[2020-11-30] MEDS: VECURONIUM BROMIDE 100 MG/100 ML BAG IVPB SCH ×2 (08:00→17:37)
[2020-11-30 08:03] LABS: ANION GAP 11 MMOL/L (8-16); CALCIUM 7.8 mg/dL (8.5-10.1); CO2 29 mmol/L (21-32); GLUCOSE,RANDOM 134 mg/dL (74-106)
[2020-11-30 08:04] LABS: MAGNESIUM 2.3 mg/dL (1.8-2.4)
[2020-11-30 08:05] LABS: BILIRUBIN,TOTAL 0.5 mg/dL (0.2-1); SGPT/ALT 23 U/L (13-61)
[2020-11-30 08:07] LABS: PHOSPHOROUS 8.9 mg/dL (2.5-4.9); SGOT/AST 61 U/L (15-37)
[2020-11-30 08:08] LABS: TOT PROT 5.2 g/dl (6.4-8.2)
[2020-11-30 08:19] LABS: ALK PHOS 167 U/L (45-117); BLOOD UREA NITROGEN 119.8 mg/dL (7-18)
[2020-11-30] MEDS: BUDESONIDE 0.25 MG/2ML INH SUSP VIAL NEB SCH ×2 (08:25→20:10)
[2020-11-30] MEDS: ALBUTEROL SO4 2.5/IPRATROPIUM 0.5 INH SOL 3 ML VIAL.NEB. NEB SCH ×3 (08:25→20:10)
[2020-11-30] MEDS ORDERED: SODIUM BICARBONATE 8.4% 50 MEQ/50 ML DISP.SYRIN IVPUSH SCH (09:00)
[2020-11-30] MEDS ORDERED: POLYETHYLENE GLYCOL 3350 255 GM BTL PO ONE (09:33)
[2020-11-30] MEDS ORDERED: POLYETHYLENE GLYCOL 3350 119 GM BTL PO SCH (10:00)
[2020-11-30] MEDS: FENTANYL NS IVPB 500 MCG/100 ML BAG IVPB SCH ×4 (10:38→22:05)
[2020-11-30] MEDS ORDERED: MEROPENEM 1 GM VIAL (RESTRICTED TO ID) IVPB ONE ×2 (10:45→21:43)
[2020-11-30] MEDS ORDERED: DEXTROSE 5%-WATER 100 ML IVPB ONE ×2 (10:46→21:44)
[2020-11-30] MEDS: POLYETHYLENE GLYCOL (HEALTHYLAX) 3350 17 GM PACKET PO SCH (10:50)
[2020-11-30] MEDS: ZINC SULFATE 220 MG CAPSULE (FP) PO SCH ×2 (10:50→22:04)
[2020-11-30] MEDS: MEROPENEM 1 GM in DEXTROSE 5%-WATER 100 ML IVPB SCH ×2 (10:50→22:04)
[2020-11-30] MEDS: DEXAMETHASONE SOD PHOSPHATE 4 MG/1 ML VIAL IVPUSH SCH (10:51)
[2020-11-30] MEDS: PANTOPRAZOLE SODIUM 40 MG VIAL IVPUSH SCH ×2 (10:59→22:04)
[2020-11-30 11:12] LABS: ANISOCYTOSIS 1+; MACROCYTOSIS 0; PLATELET ESTIMATE NORMAL
[2020-11-30] MEDS ORDERED: ALBUMIN HUMAN 25% 12.5 GM/50 ML VIAL IVPB SCH (13:30)
[2020-11-30] MEDS ORDERED: SODIUM CHLORIDE 250 ML IV PRN (19:27)
[2020-11-30] MEDS: ALBUMIN HUMAN 25% 12.5 GM/50 ML VIAL IVPB SCH ×4 (20:15→21:07)
[2020-11-30] MEDS: VASOPRESSIN 40 UNITS/100 ML BAG IV SCH (20:55)
[2020-11-30] MEDS ORDERED: BACITRACIN 15 GM TUBE TOPICAL OINTMENT TP SCH (22:00)
[2020-11-30] MEDS: CHLORHEXIDINE GLUCONATE 4% CLEANSER FOR DECOLONIZATION TP SCH (22:24)
[2020-12-01] MEDS: NOREPINEPHRINE NS PREMIX 16,000 MCG/500 ML BAG IVPB SCH (01:33)
[2020-12-01] MEDS: PROPOFOL 1,000,000 MCG/100 ML VIAL IVPB SCH ×5 (02:13→22:02)
[2020-12-01] MEDS: FENTANYL NS IVPB 500 MCG/100 ML BAG IVPB SCH ×4 (05:05→17:23)
[2020-12-01 06:37] LABS: HEMATOCRIT 25.8 % (32.4-45.2); MCH 29.2 pg (25.7-33.7); MCHC 34.8 g/dl (32.0-36.0); MEAN PLT VOLUME 9.3 fl (7.5-11.1); PLATELET COUNT 309 10^3/uL (134-434); RBC 3.07 M/mm3 (3.60-5.2); RDW 15.1 % (11.6-15.6)
[2020-12-01 07:01] LABS: BLOOD UREA NITROGEN 96.8 mg/dL (7-18); CALCIUM 7.7 mg/dL (8.5-10.1); MAGNESIUM 2.2 mg/dL (1.8-2.4)
[2020-12-01 07:04] LABS: PHOSPHOROUS 8.6 mg/dL (2.5-4.9)
[2020-12-01 07:07] LABS: BILIRUBIN,TOTAL 0.7 mg/dL (0.2-1); TOT PROT 5.1 g/dl (6.4-8.2)
[2020-12-01] MEDS: INSULIN SLIDING SCALE (NOVOLOG) 1 VIAL SQ SCH ×5 (08:10→23:37)
[2020-12-01] MEDS: ALBUTEROL SO4 2.5/IPRATROPIUM 0.5 INH SOL 3 ML VIAL.NEB. NEB SCH ×3 (08:50→20:55)
[2020-12-01] MEDS: BUDESONIDE 0.25 MG/2ML INH SUSP VIAL NEB SCH ×2 (08:50→20:55)
[2020-12-01] MEDS ORDERED: DEXTROSE 5%-WATER 100 ML IVPB ONE ×2 (09:00→21:59)
[2020-12-01] MEDS ORDERED: MEROPENEM 1 GM VIAL (RESTRICTED TO ID) IVPB ONE ×2 (09:00→21:59)
[2020-12-01 09:33] LABS: ANISOCYTOSIS 0; HELMET CELLS 0; HOWELL-JOLLY BODIES 0; MACROCYTOSIS 0; OVALOCYTE 0; PLATELET ESTIMATE NORMAL; ROULEAU 0; SICKELED CELLS 0; TARGET CELLS 0; TEAR DROP CELLS 0; TOXIC GRANULATION 0
[2020-12-01] MEDS: METOPROLOL TARTRATE 5 MG/5 ML VIAL IVPUSH PRN (09:46)
[2020-12-01] MEDS: POLYETHYLENE GLYCOL (HEALTHYLAX) 3350 17 GM PACKET PO SCH (09:46)
[2020-12-01] MEDS: MEROPENEM 1 GM in DEXTROSE 5%-WATER 100 ML IVPB SCH ×2 (09:48→22:02)
[2020-12-01] MEDS: PANTOPRAZOLE SODIUM 40 MG VIAL IVPUSH SCH ×2 (09:48→22:02)
[2020-12-01] MEDS: ZINC SULFATE 220 MG CAPSULE (FP) PO SCH ×2 (10:30→22:02)
[2020-12-01] MEDS ORDERED: SODIUM CHLORIDE 250 ML IV PRN (13:16)
[2020-12-01] MEDS: ALBUMIN HUMAN 25% 12.5 GM/50 ML VIAL IVPB SCH ×2 (16:10→16:11)
[2020-12-01] MEDS: VECURONIUM BROMIDE 100 MG/100 ML BAG IVPB SCH (17:19)
[2020-12-01] MEDS: CHLORHEXIDINE GLUCONATE 4% CLEANSER FOR DECOLONIZATION TP SCH (22:02)
[2020-12-02] MEDS: NOREPINEPHRINE NS PREMIX 16,000 MCG/500 ML BAG IVPB SCH (06:56)
[2020-12-02] MEDS: PROPOFOL 1,000,000 MCG/100 ML VIAL IVPB SCH ×4 (06:57→22:01)
[2020-12-02] MEDS: INSULIN SLIDING SCALE (NOVOLOG) 1 VIAL SQ SCH ×5 (06:57→22:20)
[2020-12-02 07:02] LABS: ARTERIAL BLD GAS O2 SATURATION 86.9 % (95-98); ARTERIAL BLOOD GAS BASE EXCESS 3.6 mmol/L (-2-2); ARTERIAL BLOOD GAS pH 7.208 (7.350-7.450)
[2020-12-02 07:18] LABS: ALLENS TEST POSITIVE; VENT MODE AC; VENT RATE 36
[2020-12-02 08:14] LABS: CALCIUM 7.5 mg/dL (8.5-10.1)
[2020-12-02 08:15] LABS: ALBUMIN 1.8 g/dl (3.4-5.0)
[2020-12-02 08:18] LABS: CREATININE 2.4 mg/dL (0.55-1.3); PHOSPHOROUS 5.7 mg/dL (2.5-4.9)
[2020-12-02 08:19] LABS: BILIRUBIN,TOTAL 0.5 mg/dL (0.2-1)
[2020-12-02 08:20] LABS: HEMATOCRIT 24.3 % (32.4-45.2); HEMOGLOBIN 8.4 GM/dL (10.7-15.3); MCH 29.3 pg (25.7-33.7); MCHC 34.5 g/dl (32.0-36.0); MEAN PLT VOLUME 9.4 fl (7.5-11.1); PLATELET COUNT 229 10^3/uL (134-434); RBC 2.86 M/mm3 (3.60-5.2); TOT PROT 4.9 g/dl (6.4-8.2); WHITE BLOOD COUNT 17.2 K/mm3 (4.0-10.0)
[2020-12-02 08:35] LABS: BLOOD UREA NITROGEN 57.4 mg/dL (7-18)
[2020-12-02] MEDS: ALBUTEROL SO4 2.5/IPRATROPIUM 0.5 INH SOL 3 ML VIAL.NEB. NEB SCH ×3 (08:35→20:10)
[2020-12-02] MEDS: BUDESONIDE 0.25 MG/2ML INH SUSP VIAL NEB SCH ×2 (08:36→20:10)
[2020-12-02] MEDS ORDERED: MEROPENEM 1 GM VIAL (RESTRICTED TO ID) IVPB ONE (08:59)
[2020-12-02] MEDS ORDERED: DEXTROSE 5%-WATER 100 ML IVPB ONE (09:00)
[2020-12-02] MEDS: PANTOPRAZOLE SODIUM 40 MG VIAL IVPUSH SCH ×2 (09:16→22:00)
[2020-12-02] MEDS: POLYETHYLENE GLYCOL (HEALTHYLAX) 3350 17 GM PACKET PO SCH (09:16)
[2020-12-02] MEDS: ZINC SULFATE 220 MG CAPSULE (FP) PO SCH ×2 (09:16→22:00)
[2020-12-02] MEDS: MEROPENEM 1 GM in DEXTROSE 5%-WATER 100 ML IVPB SCH (09:16)
[2020-12-02] MEDS: FENTANYL NS IVPB 500 MCG/100 ML BAG IVPB SCH ×3 (09:17→22:01)
[2020-12-02 09:37] LABS: ANISOCYTOSIS 0; MACROCYTOSIS 0; PLATELET ESTIMATE NORMAL
[2020-12-02] MEDS: METOPROLOL TARTRATE 5 MG/5 ML VIAL IVPUSH PRN (15:39)
[2020-12-02] MEDS ORDERED: SODIUM CHLORIDE 250 ML IV PRN (16:15)
[2020-12-02] MEDS: AMINO ACIDS/PROTEIN HYDROLYS 30 ML LIQUID.PKT PO SCH (18:06)
[2020-12-02] MEDS ORDERED: PT OWN MED DRAWER 7, Y5N ONE (21:51)
[2020-12-02] MEDS: CHLORHEXIDINE GLUCONATE 4% CLEANSER FOR DECOLONIZATION TP SCH (22:01)
[2020-12-03] MEDS: MEROPENEM 1 GM in DEXTROSE 5%-WATER 100 ML IVPB SCH ×3 (00:30→21:13)
[2020-12-03] MEDS ORDERED: DEXTROSE 5%-WATER 100 ML IVPB ONE ×3 (01:02→20:48)
[2020-12-03] MEDS ORDERED: MEROPENEM 1 GM VIAL (RESTRICTED TO ID) IVPB ONE ×3 (01:02→20:48)
[2020-12-03 06:26] LABS: HEMATOCRIT 23.9 % (32.4-45.2); HEMOGLOBIN 8.1 GM/dL (10.7-15.3); MCH 29.3 pg (25.7-33.7); MCHC 33.8 g/dl (32.0-36.0); MEAN CELL VOLUME 86.8 fl (80-96); MEAN PLT VOLUME 9.2 fl (7.5-11.1); PLATELET COUNT 255 10^3/uL (134-434); RBC 2.76 M/mm3 (3.60-5.2); RDW 15.1 % (11.6-15.6); WHITE BLOOD COUNT 20.1 K/mm3 (4.0-10.0)
[2020-12-03 06:40] LABS: ALBUMIN 1.6 g/dl (3.4-5.0); BLOOD UREA NITROGEN 71.9 mg/dL (7-18); CALCIUM 7.2 mg/dL (8.5-10.1); MAGNESIUM 2.1 mg/dL (1.8-2.4)
[2020-12-03 06:44] LABS: CREATININE 3.4 mg/dL (0.55-1.3); PHOSPHOROUS 7.6 mg/dL (2.5-4.9)
[2020-12-03 06:45] LABS: BILIRUBIN,TOTAL 0.5 mg/dL (0.2-1); TOT PROT 4.9 g/dl (6.4-8.2)
[2020-12-03] MEDS: INSULIN SLIDING SCALE (NOVOLOG) 1 VIAL SQ SCH ×5 (07:03→22:05)
[2020-12-03] MEDS: NOREPINEPHRINE NS PREMIX 16,000 MCG/500 ML BAG IVPB SCH ×2 (07:20→09:09)
[2020-12-03] MEDS: VASOPRESSIN 40 UNITS/100 ML BAG IV SCH ×2 (07:30→09:08)
[2020-12-03] MEDS ORDERED: SODIUM CHLORIDE 250 ML IV PRN (08:14)
[2020-12-03] MEDS: BUDESONIDE 0.25 MG/2ML INH SUSP VIAL NEB SCH (08:15)
[2020-12-03] MEDS: ALBUTEROL SO4 2.5/IPRATROPIUM 0.5 INH SOL 3 ML VIAL.NEB. NEB SCH ×2 (08:15→14:21)
[2020-12-03] MEDS: ALBUMIN HUMAN 25% 12.5 GM/50 ML VIAL IVPB SCH ×3 (08:20→10:16)
[2020-12-03] MEDS: PROPOFOL 1,000,000 MCG/100 ML VIAL IVPB SCH ×4 (09:08→18:04)
[2020-12-03] MEDS: FENTANYL NS IVPB 500 MCG/100 ML BAG IVPB SCH ×3 (09:30→18:05)
[2020-12-03] MEDS: ZINC SULFATE 220 MG CAPSULE (FP) PO SCH ×2 (11:00→21:13)
[2020-12-03] MEDS: AMINO ACIDS/PROTEIN HYDROLYS 30 ML LIQUID.PKT PO SCH ×2 (11:00→16:46)
[2020-12-03] MEDS: PANTOPRAZOLE SODIUM 40 MG VIAL IVPUSH SCH ×2 (11:00→21:13)
[2020-12-03] MEDS: POLYETHYLENE GLYCOL (HEALTHYLAX) 3350 17 GM PACKET PO SCH (11:00)
[2020-12-03 11:24] LABS: ANISOCYTOSIS 2+; MACROCYTOSIS 1+; PLATELET ESTIMATE NORMAL
[2020-12-03] MEDS: CHLORHEXIDINE GLUCONATE 4% CLEANSER FOR DECOLONIZATION TP SCH (21:12)
[2020-12-04] MEDS: INSULIN SLIDING SCALE (NOVOLOG) 1 VIAL SQ SCH ×5 (06:33→21:40)
[2020-12-04 06:47] LABS: HEMATOCRIT 22.7 % (32.4-45.2); HEMOGLOBIN 7.6 GM/dL (10.7-15.3); MCH 28.9 pg (25.7-33.7); MCHC 33.6 g/dl (32.0-36.0); MEAN CELL VOLUME 85.9 fl (80-96); PLATELET COUNT 257 10^3/uL (134-434); RBC 2.64 M/mm3 (3.60-5.2); RDW 15.5 % (11.6-15.6); WHITE BLOOD COUNT 19.2 K/mm3 (4.0-10.0)
[2020-12-04 06:56] LABS: BLOOD UREA NITROGEN 50.1 mg/dL (7-18); CALCIUM 7.6 mg/dL (8.5-10.1)
[2020-12-04 06:57] LABS: ALBUMIN 1.5 g/dl (3.4-5.0)
[2020-12-04 06:59] LABS: CREATININE 2.6 mg/dL (0.55-1.3)
[2020-12-04 07:01] LABS: BILIRUBIN,TOTAL 0.6 mg/dL (0.2-1)
[2020-12-04] MEDS: NOREPINEPHRINE NS PREMIX 16,000 MCG/500 ML BAG IVPB SCH ×2 (08:58→18:34)
[2020-12-04] MEDS: VASOPRESSIN 40 UNITS/100 ML BAG IV SCH (08:58)
[2020-12-04] MEDS ORDERED: DEXTROSE 5%-WATER 100 ML IVPB ONE ×2 (09:44→20:53)
[2020-12-04] MEDS ORDERED: MEROPENEM 1 GM VIAL (RESTRICTED TO ID) IVPB ONE ×3 (09:44→21:03)
[2020-12-04 10:05] LABS: ANISOCYTOSIS 0; MACROCYTOSIS 0; PLATELET ESTIMATE NORMAL
[2020-12-04] MEDS: PANTOPRAZOLE SODIUM 40 MG VIAL IVPUSH SCH ×2 (10:42→21:21)
[2020-12-04] MEDS: MEROPENEM 1 GM in DEXTROSE 5%-WATER 100 ML IVPB SCH ×2 (10:42→21:22)
[2020-12-04] MEDS: ZINC SULFATE 220 MG CAPSULE (FP) PO SCH ×2 (10:42→21:21)
[2020-12-04] MEDS: AMINO ACIDS/PROTEIN HYDROLYS 30 ML LIQUID.PKT PO SCH ×2 (10:42→17:09)
[2020-12-04] MEDS: POLYETHYLENE GLYCOL (HEALTHYLAX) 3350 17 GM PACKET PO SCH (10:42)
[2020-12-04] MEDS: PROPOFOL 1,000,000 MCG/100 ML VIAL IVPB SCH ×4 (10:58→18:34)
[2020-12-04] MEDS: FENTANYL NS IVPB 500 MCG/100 ML BAG IVPB SCH ×2 (13:10→18:34)
[2020-12-04 15:00] LABS: ARTERIAL BLD GAS O2 SATURATION 76.3 % (95-98); ARTERIAL BLOOD GAS BASE EXCESS -8.8 mmol/L (-2-2); ARTERIAL BLOOD GAS PO2 53.1 mmHg (80-100)
[2020-12-04 15:03] LABS: ARTERIAL BLOOD GAS pH 7.141 (7.350-7.450)
[2020-12-04] MEDS ORDERED: FUROSEMIDE 100 MG/10 ML INJECTABLE VIAL IVPB ONE (15:44)
[2020-12-04] MEDS ORDERED: ROCURONIUM BROMIDE 50 MG/5 ML VIAL IV ONE (16:44)
[2020-12-04] MEDS ORDERED: ROCURONIUM BROMIDE 100 MG/10 ML VIAL IV ONE (17:00)
[2020-12-04] MEDS: CHLORHEXIDINE GLUCONATE 4% CLEANSER FOR DECOLONIZATION TP SCH (21:22)
[2020-12-05 06:51] LABS: ARTERIAL BLD GAS O2 SATURATION 77.8 % (95-98); ARTERIAL BLOOD GAS BASE EXCESS -6.3 mmol/L (-2-2); ARTERIAL BLOOD GAS PO2 53.3 mmHg (80-100)
[2020-12-05 06:57] LABS: ALLENS TEST POSITIVE
[2020-12-05 06:58] LABS: PT'S TEMP 37 C; VENT MODE A/C; VENT RATE 36
[2020-12-05] MEDS: INSULIN SLIDING SCALE (NOVOLOG) 1 VIAL SQ SCH ×5 (07:22→22:54)
[2020-12-05 07:59] LABS: HEMATOCRIT 21.3 % (32.4-45.2); HEMOGLOBIN 7.3 GM/dL (10.7-15.3); MCH 29.9 pg (25.7-33.7); MCHC 34.4 g/dl (32.0-36.0); MEAN PLT VOLUME 9.4 fl (7.5-11.1); PLATELET COUNT 260 10^3/uL (134-434); RBC 2.44 M/mm3 (3.60-5.2); RDW 15.5 % (11.6-15.6); WHITE BLOOD COUNT 15.3 K/mm3 (4.0-10.0)
[2020-12-05 08:11] LABS: CALCIUM 7.9 mg/dL (8.5-10.1)
[2020-12-05 08:12] LABS: ALBUMIN 1.5 g/dl (3.4-5.0); BLOOD UREA NITROGEN 70.3 mg/dL (7-18); MAGNESIUM 2.1 mg/dL (1.8-2.4)
[2020-12-05 08:15] LABS: CREATININE 3.4 mg/dL (0.55-1.3)
[2020-12-05 08:16] LABS: BILIRUBIN,TOTAL 0.6 mg/dL (0.2-1)
[2020-12-05 08:17] LABS: TOT PROT 5.1 g/dl (6.4-8.2)
[2020-12-05] MEDS: AMINO ACIDS/PROTEIN HYDROLYS 30 ML LIQUID.PKT PO SCH ×2 (08:45→17:29)
[2020-12-05] MEDS ORDERED: MEROPENEM 1 GM VIAL (RESTRICTED TO ID) IVPB ONE ×2 (10:03→22:26)
[2020-12-05] MEDS ORDERED: DEXTROSE 5%-WATER 100 ML IVPB ONE ×2 (10:03→22:27)
[2020-12-05] MEDS: VASOPRESSIN 40 UNITS/100 ML BAG IV SCH (10:09)
[2020-12-05] MEDS: MEROPENEM 1 GM in DEXTROSE 5%-WATER 100 ML IVPB SCH ×2 (10:10→22:45)
[2020-12-05] MEDS: POLYETHYLENE GLYCOL (HEALTHYLAX) 3350 17 GM PACKET PO SCH (10:10)
[2020-12-05] MEDS: ZINC SULFATE 220 MG CAPSULE (FP) PO SCH ×2 (10:11→22:45)
[2020-12-05] MEDS: PROPOFOL 1,000,000 MCG/100 ML VIAL IVPB SCH ×2 (10:11→17:28)
[2020-12-05] MEDS: NOREPINEPHRINE NS PREMIX 16,000 MCG/500 ML BAG IVPB SCH ×2 (10:11→17:28)
[2020-12-05] MEDS: PANTOPRAZOLE SODIUM 40 MG VIAL IVPUSH SCH ×2 (10:11→22:45)
[2020-12-05] MEDS: FENTANYL NS IVPB 500 MCG/100 ML BAG IVPB SCH ×2 (10:12→17:29)
[2020-12-05 11:48] LABS: ANISOCYTOSIS 0; MACROCYTOSIS 0; PLATELET ESTIMATE NORMAL
[2020-12-05] MEDS: CHLORHEXIDINE GLUCONATE 4% CLEANSER FOR DECOLONIZATION TP SCH (22:54)
[2020-12-06] MEDS: VASOPRESSIN 40 UNITS/100 ML BAG IV SCH ×2 (00:13→21:56)
[2020-12-06] MEDS: FENTANYL NS IVPB 500 MCG/100 ML BAG IVPB SCH ×4 (00:13→22:04)
[2020-12-06] MEDS: PROPOFOL 1,000,000 MCG/100 ML VIAL IVPB SCH ×7 (00:13→22:03)
[2020-12-06] MEDS: INSULIN SLIDING SCALE (NOVOLOG) 1 VIAL SQ SCH ×5 (06:07→22:09)
[2020-12-06] MEDS: NOREPINEPHRINE NS PREMIX 16,000 MCG/500 ML BAG IVPB SCH ×2 (06:07→10:11)
[2020-12-06 06:23] LABS: HEMATOCRIT 20.4 % (32.4-45.2); MCH 29.9 pg (25.7-33.7); MCHC 34.5 g/dl (32.0-36.0); MEAN CELL VOLUME 86.7 fl (80-96); MEAN PLT VOLUME 9.3 fl (7.5-11.1); PLATELET COUNT 229 10^3/uL (134-434); RBC 2.35 M/mm3 (3.60-5.2); RDW 15.5 % (11.6-15.6)
[2020-12-06 06:40] LABS: ALBUMIN 1.4 g/dl (3.4-5.0)
[2020-12-06 06:43] LABS: CALCIUM 7.6 mg/dL (8.5-10.1); CREATININE 3.8 mg/dL (0.55-1.3)
[2020-12-06 06:44] LABS: BILIRUBIN,TOTAL 0.6 mg/dL (0.2-1); BLOOD UREA NITROGEN 79.2 mg/dL (7-18); PHOSPHOROUS 8.2 mg/dL (2.5-4.9)
[2020-12-06] MEDS ORDERED: SODIUM CHLORIDE 250 ML IV PRN (07:00)
[2020-12-06] MEDS: ALBUMIN HUMAN 25% 12.5 GM/50 ML VIAL IVPB SCH ×4 (07:10→08:30)
[2020-12-06 09:37] LABS: ANISOCYTOSIS 0; HELMET CELLS 0; HOWELL-JOLLY BODIES 0; MACROCYTOSIS 0; OVALOCYTE 0; PLATELET ESTIMATE NORMAL; ROULEAU 0; SICKELED CELLS 0; TARGET CELLS 0; TEAR DROP CELLS 0; TOXIC GRANULATION 0
[2020-12-06 10:06] LABS: WHITE BLOOD COUNT 14.4 K/mm3 (4.0-10.0)
[2020-12-06] MEDS ORDERED: DEXTROSE 5%-WATER 100 ML IVPB ONE ×2 (10:47→21:54)
[2020-12-06] MEDS ORDERED: MEROPENEM 1 GM VIAL (RESTRICTED TO ID) IVPB ONE ×2 (10:47→21:54)
[2020-12-06] MEDS: MEROPENEM 1 GM in DEXTROSE 5%-WATER 100 ML IVPB SCH ×2 (10:54→21:55)
[2020-12-06] MEDS: AMINO ACIDS/PROTEIN HYDROLYS 30 ML LIQUID.PKT PO SCH ×2 (10:54→18:27)
[2020-12-06] MEDS: POLYETHYLENE GLYCOL (HEALTHYLAX) 3350 17 GM PACKET PO SCH (10:54)
[2020-12-06] MEDS: PANTOPRAZOLE SODIUM 40 MG VIAL IVPUSH SCH ×2 (10:54→21:55)
[2020-12-06] MEDS: ZINC SULFATE 220 MG CAPSULE (FP) PO SCH ×2 (10:54→21:55)
[2020-12-06] MEDS: CHLORHEXIDINE GLUCONATE 4% CLEANSER FOR DECOLONIZATION TP SCH (21:55)
[2020-12-07] MEDS: PROPOFOL 1,000,000 MCG/100 ML VIAL IVPB SCH ×5 (02:40→18:56)
[2020-12-07] MEDS: FENTANYL NS IVPB 500 MCG/100 ML BAG IVPB SCH ×4 (02:41→18:55)
[2020-12-07] MEDS: INSULIN SLIDING SCALE (NOVOLOG) 1 VIAL SQ SCH ×5 (06:29→21:58)
[2020-12-07] MEDS: NOREPINEPHRINE NS PREMIX 16,000 MCG/500 ML BAG IVPB SCH ×2 (06:30→08:26)
[2020-12-07 06:38] LABS: MCH 31.2 pg (25.7-33.7); MCHC 35.8 g/dl (32.0-36.0); MEAN CELL VOLUME 87.2 fl (80-96); MEAN PLT VOLUME 9.8 fl (7.5-11.1); PLATELET COUNT 186 10^3/uL (134-434); RBC 2.18 M/mm3 (3.60-5.2); RDW 15.8 % (11.6-15.6); WHITE BLOOD COUNT 12.3 K/mm3 (4.0-10.0)
[2020-12-07 06:45] LABS: HEMOGLOBIN 6.8 GM/dL (10.7-15.3)
[2020-12-07 07:06] LABS: BLOOD UREA NITROGEN 57.7 mg/dL (7-18)
[2020-12-07 07:08] LABS: CALCIUM 7.1 mg/dL (8.5-10.1); MAGNESIUM 2.1 mg/dL (1.8-2.4)
[2020-12-07 07:10] LABS: CREATININE 3.1 mg/dL (0.55-1.3)
[2020-12-07] MEDS: AMINO ACIDS/PROTEIN HYDROLYS 30 ML LIQUID.PKT PO SCH ×2 (08:27→17:50)
[2020-12-07] MEDS ORDERED: MEROPENEM 1 GM VIAL (RESTRICTED TO ID) IVPB ONE ×2 (09:45→21:07)
[2020-12-07] MEDS ORDERED: DEXTROSE 5%-WATER 100 ML IVPB ONE ×2 (09:45→21:07)
[2020-12-07] MEDS: POLYETHYLENE GLYCOL (HEALTHYLAX) 3350 17 GM PACKET PO SCH (10:06)
[2020-12-07] MEDS: PANTOPRAZOLE SODIUM 40 MG VIAL IVPUSH SCH ×2 (10:07→21:57)
[2020-12-07] MEDS: MEROPENEM 1 GM in DEXTROSE 5%-WATER 100 ML IVPB SCH ×2 (10:07→21:57)
[2020-12-07] MEDS: ZINC SULFATE 220 MG CAPSULE (FP) PO SCH ×2 (10:07→21:57)
[2020-12-07 10:28] LABS: ANISOCYTOSIS 0; MACROCYTOSIS 0; PLATELET ESTIMATE NORMAL
[2020-12-07] MEDS: VASOPRESSIN 40 UNITS/100 ML BAG IV SCH (21:57)
[2020-12-07] MEDS: CHLORHEXIDINE GLUCONATE 4% CLEANSER FOR DECOLONIZATION TP SCH (21:58)
[2020-12-08 06:53] LABS: HEMATOCRIT 24.3 % (32.4-45.2); HEMOGLOBIN 8.1 GM/dL (10.7-15.3); MCHC 33.5 g/dl (32.0-36.0); MEAN CELL VOLUME 86.4 fl (80-96); MEAN PLT VOLUME 9.1 fl (7.5-11.1); PLATELET COUNT 140 10^3/uL (134-434); RBC 2.81 M/mm3 (3.60-5.2); WHITE BLOOD COUNT 15.5 K/mm3 (4.0-10.0)
[2020-12-08 07:18] LABS: ALBUMIN 1.6 g/dl (3.4-5.0); CALCIUM 7.8 mg/dL (8.5-10.1); MAGNESIUM 2.1 mg/dL (1.8-2.4)
[2020-12-08 07:19] LABS: BLOOD UREA NITROGEN 69.4 mg/dL (7-18)
[2020-12-08 07:21] LABS: CREATININE 3.6 mg/dL (0.55-1.3); PHOSPHOROUS 7.7 mg/dL (2.5-4.9)
[2020-12-08 07:23] LABS: BILIRUBIN,TOTAL 0.7 mg/dL (0.2-1); TOT PROT 5.3 g/dl (6.4-8.2)
[2020-12-08] MEDS: INSULIN SLIDING SCALE (NOVOLOG) 1 VIAL SQ SCH ×4 (07:24→23:47)
[2020-12-08 08:32] LABS: ANISOCYTOSIS 0; HELMET CELLS 0; HOWELL-JOLLY BODIES 0; MACROCYTOSIS 0; OVALOCYTE 0; PLATELET ESTIMATE DECREASED; ROULEAU 0; SICKELED CELLS 0; TARGET CELLS 0; TEAR DROP CELLS 0; TOXIC GRANULATION 0
[2020-12-08] MEDS: NOREPINEPHRINE NS PREMIX 16,000 MCG/500 ML BAG IVPB SCH ×2 (09:00→18:34)
[2020-12-08] MEDS: AMINO ACIDS/PROTEIN HYDROLYS 30 ML LIQUID.PKT PO SCH ×2 (09:00→17:32)
[2020-12-08] MEDS ORDERED: MEROPENEM 1 GM VIAL (RESTRICTED TO ID) IVPB ONE ×2 (09:11→22:08)
[2020-12-08] MEDS ORDERED: DEXTROSE 5%-WATER 100 ML IVPB ONE ×2 (09:12→22:08)
[2020-12-08] MEDS: MEROPENEM 1 GM in DEXTROSE 5%-WATER 100 ML IVPB SCH ×2 (09:20→22:23)
[2020-12-08] MEDS: FENTANYL NS IVPB 500 MCG/100 ML BAG IVPB SCH ×3 (09:20→18:34)
[2020-12-08] MEDS: PANTOPRAZOLE SODIUM 40 MG VIAL IVPUSH SCH ×2 (09:20→22:23)
[2020-12-08] MEDS: ZINC SULFATE 220 MG CAPSULE (FP) PO SCH ×2 (09:20→22:23)
[2020-12-08] MEDS: POLYETHYLENE GLYCOL (HEALTHYLAX) 3350 17 GM PACKET PO SCH (09:20)
[2020-12-08] MEDS: PROPOFOL 1,000,000 MCG/100 ML VIAL IVPB SCH ×4 (09:20→18:34)
[2020-12-08] MEDS ORDERED: FUROSEMIDE 40 MG/4 ML INJECTABLE VIAL IVPUSH ONE (15:18)
[2020-12-08] MEDS: CHLORHEXIDINE GLUCONATE 4% CLEANSER FOR DECOLONIZATION TP SCH (22:23)
[2020-12-09] MEDS: INSULIN SLIDING SCALE (NOVOLOG) 1 VIAL SQ SCH ×5 (07:34→21:42)
[2020-12-09] MEDS ORDERED: ALBUTEROL SO4 2.5/IPRATROPIUM 0.5 INH SOL 3 ML VIAL.NEB. NEB PRN (08:19)
[2020-12-09] MEDS: FENTANYL NS IVPB 500 MCG/100 ML BAG IVPB SCH ×3 (08:31→18:57)
[2020-12-09] MEDS: PROPOFOL 1,000,000 MCG/100 ML VIAL IVPB SCH ×5 (08:31→22:57)
[2020-12-09] MEDS ORDERED: MEROPENEM 1 GM VIAL (RESTRICTED TO ID) IVPB ONE (09:09)
[2020-12-09] MEDS ORDERED: DEXTROSE 5%-WATER 100 ML IVPB ONE (09:10)
[2020-12-09] MEDS: AMINO ACIDS/PROTEIN HYDROLYS 30 ML LIQUID.PKT PO SCH ×2 (09:10→17:33)
[2020-12-09] MEDS: MEROPENEM 1 GM in DEXTROSE 5%-WATER 100 ML IVPB SCH (09:15)
[2020-12-09] MEDS: ZINC SULFATE 220 MG CAPSULE (FP) PO SCH ×2 (09:15→21:36)
[2020-12-09] MEDS: PANTOPRAZOLE SODIUM 40 MG VIAL IVPUSH SCH ×2 (09:15→21:36)
[2020-12-09] MEDS: POLYETHYLENE GLYCOL (HEALTHYLAX) 3350 17 GM PACKET PO SCH (09:35)
[2020-12-09 12:28] LABS: HEMATOCRIT 23.6 % (32.4-45.2); HEMOGLOBIN 7.9 GM/dL (10.7-15.3); MCH 29.3 pg (25.7-33.7); MCHC 33.6 g/dl (32.0-36.0); MEAN CELL VOLUME 87.3 fl (80-96); MEAN PLT VOLUME 9.4 fl (7.5-11.1); PLATELET COUNT 104 10^3/uL (134-434); RDW 15.6 % (11.6-15.6); WHITE BLOOD COUNT 17.5 K/mm3 (4.0-10.0)
[2020-12-09 12:49] LABS: CALCIUM 7.2 mg/dL (8.5-10.1)
[2020-12-09 12:50] LABS: ALBUMIN 1.3 g/dl (3.4-5.0); BLOOD UREA NITROGEN 76.4 mg/dL (7-18); MAGNESIUM 2.1 mg/dL (1.8-2.4)
[2020-12-09 12:53] LABS: CREATININE 3.9 mg/dL (0.55-1.3); PHOSPHOROUS 8.2 mg/dL (2.5-4.9)
[2020-12-09 12:54] LABS: BILIRUBIN,TOTAL 0.7 mg/dL (0.2-1); TOT PROT 4.9 g/dl (6.4-8.2)
[2020-12-09 13:00] LABS: ANISOCYTOSIS 1+; MACROCYTOSIS 1+; PLATELET ESTIMATE DECREASED
[2020-12-09] MEDS: NOREPINEPHRINE NS PREMIX 16,000 MCG/500 ML BAG IVPB SCH (15:12)
[2020-12-09] MEDS ORDERED: FUROSEMIDE 100 MG/10 ML INJECTABLE VIAL IVPB ONE (15:20)
[2020-12-09] MEDS: CHLORHEXIDINE GLUCONATE 4% CLEANSER FOR DECOLONIZATION TP SCH (21:36)
[2020-12-10] MEDS: PROPOFOL 1,000,000 MCG/100 ML VIAL IVPB SCH ×4 (01:48→18:33)
[2020-12-10] MEDS: FENTANYL NS IVPB 500 MCG/100 ML BAG IVPB SCH ×2 (01:49→18:34)
[2020-12-10] MEDS: INSULIN SLIDING SCALE (NOVOLOG) 1 VIAL SQ SCH ×6 (05:57→22:40)
[2020-12-10 06:44] LABS: HEMATOCRIT 22.4 % (32.4-45.2); HEMOGLOBIN 7.9 GM/dL (10.7-15.3); MCH 30.9 pg (25.7-33.7); MCHC 35.2 g/dl (32.0-36.0); MEAN CELL VOLUME 87.8 fl (80-96); MEAN PLT VOLUME 10.2 fl (7.5-11.1); PLATELET COUNT 98 10^3/uL (134-434); RBC 2.55 M/mm3 (3.60-5.2); RDW 15.9 % (11.6-15.6)
[2020-12-10 07:09] LABS: CALCIUM 7.2 mg/dL (8.5-10.1)
[2020-12-10 07:10] LABS: ALBUMIN 1.2 g/dl (3.4-5.0); MAGNESIUM 2.1 mg/dL (1.8-2.4)
[2020-12-10 07:13] LABS: CREATININE 4.1 mg/dL (0.55-1.3); PHOSPHOROUS 8.7 mg/dL (2.5-4.9)
[2020-12-10 07:15] LABS: BILIRUBIN,TOTAL 0.6 mg/dL (0.2-1)
[2020-12-10] MEDS: AMINO ACIDS/PROTEIN HYDROLYS 30 ML LIQUID.PKT PO SCH ×2 (09:00→18:36)
[2020-12-10] MEDS: NOREPINEPHRINE NS PREMIX 16,000 MCG/500 ML BAG IVPB SCH (09:05)
[2020-12-10] MEDS: POLYETHYLENE GLYCOL (HEALTHYLAX) 3350 17 GM PACKET PO SCH (09:06)
[2020-12-10] MEDS: PANTOPRAZOLE SODIUM 40 MG VIAL IVPUSH SCH ×2 (09:06→22:20)
[2020-12-10] MEDS: ZINC SULFATE 220 MG CAPSULE (FP) PO SCH ×2 (09:06→22:20)
[2020-12-10 10:17] LABS: PLATELET ESTIMATE DECREASED
[2020-12-10 10:18] LABS: WHITE BLOOD COUNT 15.8 K/mm3 (4.0-10.0)
[2020-12-10 10:19] LABS: CORRECTED WBC 14.23 K/mm3
[2020-12-10] MEDS: VASOPRESSIN 40 UNITS/100 ML BAG IV SCH (16:00)
[2020-12-10] MEDS: CHLORHEXIDINE GLUCONATE 4% CLEANSER FOR DECOLONIZATION TP SCH (22:20)
[2020-12-11] MEDS: FENTANYL NS IVPB 500 MCG/100 ML BAG IVPB SCH ×5 (01:20→20:38)
[2020-12-11] MEDS: PROPOFOL 1,000,000 MCG/100 ML VIAL IVPB SCH ×3 (04:48→21:37)
[2020-12-11] MEDS: INSULIN SLIDING SCALE (NOVOLOG) 1 VIAL SQ SCH ×5 (06:36→21:45)
[2020-12-11] MEDS ORDERED: OCULAR LUBRICANT OPHTHALMIC OINTMENT 7 GM TUBE OU PRN (08:36)
[2020-12-11] MEDS: AMINO ACIDS/PROTEIN HYDROLYS 30 ML LIQUID.PKT PO SCH ×2 (08:50→17:34)
[2020-12-11] MEDS: POLYETHYLENE GLYCOL (HEALTHYLAX) 3350 17 GM PACKET PO SCH (09:04)
[2020-12-11] MEDS: PANTOPRAZOLE SODIUM 40 MG VIAL IVPUSH SCH ×2 (09:05→21:30)
[2020-12-11] MEDS: ZINC SULFATE 220 MG CAPSULE (FP) PO SCH ×2 (09:05→21:30)
[2020-12-11] MEDS: NOREPINEPHRINE NS PREMIX 16,000 MCG/500 ML BAG IVPB SCH (09:09)
[2020-12-11 11:44] LABS: HEMATOCRIT 21.5 % (32.4-45.2); HEMOGLOBIN 7.5 GM/dL (10.7-15.3); MCH 31.1 pg (25.7-33.7); MEAN PLT VOLUME 10.3 fl (7.5-11.1); PLATELET COUNT 88 10^3/uL (134-434); RBC 2.41 M/mm3 (3.60-5.2); RDW 15.8 % (11.6-15.6)
[2020-12-11 12:02] LABS: CHLORIDE 98 mmol/L (98-107); SODIUM 130 mmol/L (136-145)
[2020-12-11 12:05] LABS: ANION GAP 15 MMOL/L (8-16); BLOOD UREA NITROGEN 85.7 mg/dL (7-18); CO2 18 mmol/L (21-32); GLUCOSE,RANDOM 188 mg/dL (74-106); MAGNESIUM 2.2 mg/dL (1.8-2.4)
[2020-12-11 12:08] LABS: CREATININE 4.3 mg/dL (0.55-1.3); PHOSPHOROUS 8.8 mg/dL (2.5-4.9)
[2020-12-11 12:09] LABS: BILIRUBIN,TOTAL 0.7 mg/dL (0.2-1); TOT PROT 4.9 g/dl (6.4-8.2)
[2020-12-11 12:10] LABS: ALK PHOS 177 U/L (45-117)
[2020-12-11 12:11] LABS: CALCIUM 6.6 mg/dL (8.5-10.1); SGOT/AST 72 U/L (15-37); SGPT/ALT 40 U/L (13-61); WHITE BLOOD COUNT 15.3 K/mm3 (4.0-10.0)
[2020-12-11 12:13] LABS: ANISOCYTOSIS 1+; CORRECTED WBC 12.64 K/mm3; MACROCYTOSIS 0; PLATELET ESTIMATE DECREASED; TEAR DROP CELLS 1+
[2020-12-11] MEDS ORDERED: SODIUM POLYSTYRENE SULFONATE 15 GM/60 ML BOTTLE PO ONE (12:45)
[2020-12-11] MEDS: CHLORHEXIDINE GLUCONATE 4% CLEANSER FOR DECOLONIZATION TP SCH (21:28)
[2020-12-12] MEDS: PROPOFOL 1,000,000 MCG/100 ML VIAL IVPB SCH ×5 (01:27→22:32)
[2020-12-12] MEDS: VASOPRESSIN 40 UNITS/100 ML BAG IV SCH ×3 (02:40→22:32)
[2020-12-12] MEDS: FENTANYL NS IVPB 500 MCG/100 ML BAG IVPB SCH ×3 (02:41→22:31)
[2020-12-12] MEDS: INSULIN SLIDING SCALE (NOVOLOG) 1 VIAL SQ SCH ×5 (05:49→22:33)
[2020-12-12] MEDS: AMINO ACIDS/PROTEIN HYDROLYS 30 ML LIQUID.PKT PO SCH ×2 (08:34→17:12)
[2020-12-12] MEDS: PANTOPRAZOLE SODIUM 40 MG VIAL IVPUSH SCH ×2 (09:13→22:37)
[2020-12-12] MEDS: ZINC SULFATE 220 MG CAPSULE (FP) PO SCH ×2 (09:13→22:37)
[2020-12-12 10:12] LABS: HEMOGLOBIN 7.8 GM/dL (10.7-15.3); MCH 31.2 pg (25.7-33.7); MCHC 35.4 g/dl (32.0-36.0); MEAN CELL VOLUME 88.2 fl (80-96); MEAN PLT VOLUME 10.1 fl (7.5-11.1); PLATELET COUNT 80 10^3/uL (134-434); RDW 16.4 % (11.6-15.6)
[2020-12-12 10:23] LABS: WHITE BLOOD COUNT 16.5 K/mm3 (4.0-10.0)
[2020-12-12 10:34] LABS: CHLORIDE 96 mmol/L (98-107); SODIUM 128 mmol/L (136-145)
[2020-12-12] MEDS: POLYETHYLENE GLYCOL (HEALTHYLAX) 3350 17 GM PACKET PO SCH (10:38)
[2020-12-12 10:45] LABS: ANION GAP 18 MMOL/L (8-16); BLOOD UREA NITROGEN 93.4 mg/dL (7-18); CO2 14 mmol/L (21-32); GLUCOSE,RANDOM 144 mg/dL (74-106); MAGNESIUM 2.2 mg/dL (1.8-2.4)
[2020-12-12 10:48] LABS: CREATININE 4.5 mg/dL (0.55-1.3)
[2020-12-12 10:49] LABS: BILIRUBIN,TOTAL 0.7 mg/dL (0.2-1)
[2020-12-12 10:50] LABS: ALK PHOS 183 U/L (45-117)
[2020-12-12 10:53] LABS: CALCIUM 6.9 mg/dL (8.5-10.1); SGOT/AST 68 U/L (15-37); SGPT/ALT 38 U/L (13-61)
[2020-12-12 12:05] LABS: ANISOCYTOSIS 0; MACROCYTOSIS 0; PLATELET ESTIMATE DECREASED; ROULEAU 1+
[2020-12-12] MEDS ORDERED: SODIUM CHLORIDE 250 ML IV PRN (15:46)
[2020-12-12] MEDS: ALBUMIN HUMAN 25% 12.5 GM/50 ML VIAL IVPB SCH ×3 (16:19→17:21)
[2020-12-12] MEDS: NOREPINEPHRINE NS PREMIX 16,000 MCG/500 ML BAG IVPB SCH (22:32)
[2020-12-12] MEDS: CHLORHEXIDINE GLUCONATE 4% CLEANSER FOR DECOLONIZATION TP SCH (22:32)
[2020-12-13 07:01] LABS: HEMATOCRIT 19.2 % (32.4-45.2); HEMOGLOBIN 7.4 GM/dL (10.7-15.3); MCH 34.2 pg (25.7-33.7); MCHC 38.3 g/dl (32.0-36.0); MEAN CELL VOLUME 89.2 fl (80-96); MEAN PLT VOLUME 10.6 fl (7.5-11.1); PLATELET COUNT 66 10^3/uL (134-434); RBC 2.15 M/mm3 (3.60-5.2); RDW 16.4 % (11.6-15.6)
[2020-12-13 07:02] LABS: WHITE BLOOD COUNT 23.5 K/mm3 (4.0-10.0)
[2020-12-13 07:03] LABS: CHLORIDE 96 mmol/L (98-107); SODIUM 131 mmol/L (136-145)
[2020-12-13 07:14] LABS: ANION GAP 20 MMOL/L (8-16); CO2 15 mmol/L (21-32)
[2020-12-13 07:15] LABS: GLUCOSE,RANDOM 146 mg/dL (74-106); MAGNESIUM 2.2 mg/dL (1.8-2.4)
[2020-12-13 07:18] LABS: CREATININE 3.8 mg/dL (0.55-1.3)
[2020-12-13 07:19] LABS: BILIRUBIN,TOTAL 1.2 mg/dL (0.2-1)
[2020-12-13 07:20] LABS: ALK PHOS 164 U/L (45-117)
[2020-12-13] MEDS: INSULIN SLIDING SCALE (NOVOLOG) 1 VIAL SQ SCH ×4 (07:27→17:29)
[2020-12-13 07:34] LABS: ALBUMIN 1.6 g/dl (3.4-5.0); BLOOD UREA NITROGEN 73.8 mg/dL (7-18); CALCIUM 6.1 mg/dL (8.5-10.1); TOT PROT 5.1 g/dl (6.4-8.2)
[2020-12-13] MEDS: AMINO ACIDS/PROTEIN HYDROLYS 30 ML LIQUID.PKT PO SCH ×2 (08:04→17:28)
[2020-12-13] MEDS: PROPOFOL 1,000,000 MCG/100 ML VIAL IVPB SCH ×4 (08:05→18:47)
[2020-12-13] MEDS: PANTOPRAZOLE SODIUM 40 MG VIAL IVPUSH SCH (09:25)
[2020-12-13] MEDS: ZINC SULFATE 220 MG CAPSULE (FP) PO SCH ×2 (09:26→22:00)
[2020-12-13] MEDS: VASOPRESSIN 40 UNITS/100 ML BAG IV SCH ×2 (09:29→12:41)
[2020-12-13] MEDS: NOREPINEPHRINE NS PREMIX 16,000 MCG/500 ML BAG IVPB SCH (09:29)
[2020-12-13] MEDS: FENTANYL NS IVPB 500 MCG/100 ML BAG IVPB SCH ×2 (09:29→12:41)
[2020-12-13] MEDS: POLYETHYLENE GLYCOL (HEALTHYLAX) 3350 17 GM PACKET PO SCH (10:36)
[2020-12-13] MEDS: SODIUM BICARBONATE 8.4% 50 MEQ/50 ML DISP.SYRIN IVPUSH SCH ×3 (10:36→17:30)
[2020-12-13 11:58] LABS: ANISOCYTOSIS 1+; CORRECTED WBC 15.26 K/mm3; MACROCYTOSIS 0; PLATELET ESTIMATE DECREASED; ROULEAU 1+; TEAR DROP CELLS 1+
[2020-12-13] MEDS: SEVELAMER CARBONATE 2.4 GM POWDER PACKET PO SCH ×2 (12:40→17:28)
[2020-12-13] MEDS ORDERED: PHENYLEPHRINE NS PREMIX 50,000 MCG/500 ML BAG ONE (14:01)
[2020-12-13] MEDS ORDERED: PHENYLEPHRINE NS PREMIX 50,000 MCG/500 ML BAG CVP SCH (14:15)
[2020-12-13] MEDS ORDERED: PHENYLEPHRINE NS PREMIX 50,000 MCG/500 ML BAG IVPB SCH (14:15)
[2020-12-13] MEDS: CHLORHEXIDINE GLUCONATE 4% CLEANSER FOR DECOLONIZATION TP SCH (22:00)
[2020-12-13 23:21] VITALS: BP 54/14; PULSE 78
[2020-12-13 23:37] VITALS: TEMP 97.1
== END 2020-12-13 23:30 | disposition expired | DRG 207 ==
LOC: JER 16:50 → JERBED 17:24 → J4S 23:53 → JICU 11-16 20:47
PROVIDERS: ADMIT Internal Medicine; ATTEND Internal Medicine
PROC: XW033E5 Introduction of Remdesivir Anti-infective into Peripheral Vein, Percutaneous Approach, New Technology Group 5 (ICD-10-PCS; 2020-11-10)
PROC: XW0DXM6 Introduction of Baricitinib into Mouth and Pharynx, External Approach, New Technology Group 6 (ICD-10-PCS; 2020-11-11)
PROC: 5A1955Z Respiratory Ventilation, Greater than 96 Consecutive Hours (ICD-10-PCS; principal; 2020-11-17)
PROC: 0BH17EZ Insertion of Endotracheal Airway into Trachea, Via Natural or Artificial Opening (ICD-10-PCS; 2020-11-17)
PROC: 05HM33Z Insertion of Infusion Device into Right Internal Jugular Vein, Percutaneous Approach (ICD-10-PCS; 2020-11-21)
PROC: B543ZZA Ultrasonography of Right Jugular Veins, Guidance (ICD-10-PCS; 2020-11-21)
PROC: 06HM33Z Insertion of Infusion Device into Right Femoral Vein, Percutaneous Approach (ICD-10-PCS; 2020-11-26)
PROC: 5A1D70Z Performance of Urinary Filtration, Intermittent, Less than 6 Hours Per Day (ICD-10-PCS; 2020-11-26)
PROC: 05HN33Z Insertion of Infusion Device into Left Internal Jugular Vein, Percutaneous Approach (ICD-10-PCS; 2020-11-29)
PROC: B544ZZA Ultrasonography of Left Jugular Veins, Guidance (ICD-10-PCS; 2020-11-29)
PROC: 05HM33Z Insertion of Infusion Device into Right Internal Jugular Vein, Percutaneous Approach (ICD-10-PCS; 2020-11-30)
PROC: B543ZZA Ultrasonography of Right Jugular Veins, Guidance (ICD-10-PCS; 2020-11-30)
PROC: 5A1D70Z Performance of Urinary Filtration, Intermittent, Less than 6 Hours Per Day (ICD-10-PCS; 2020-12-06)
PROC: 05HM33Z Insertion of Infusion Device into Right Internal Jugular Vein, Percutaneous Approach (ICD-10-PCS; 2020-12-12)
PROC: B543ZZA Ultrasonography of Right Jugular Veins, Guidance (ICD-10-PCS; 2020-12-12)
PROC: B54BZZA Ultrasonography of Right Lower Extremity Veins, Guidance (ICD-10-PCS; 2020-12-12)
PROC: 5A1D70Z Performance of Urinary Filtration, Intermittent, Less than 6 Hours Per Day (ICD-10-PCS; 2020-12-12)
DX: U07.1 COVID-19 (principal); J12.82 Pneumonia due to coronavirus disease 2019; J96.01 Acute respiratory failure with hypoxia; I50.33 Acute on chronic diastolic (congestive) heart failure; A41.89 Other specified sepsis; R65.21 Severe sepsis with septic shock; D65 Disseminated intravascular coagulation [defibrination syndrome]; N17.0 Acute kidney failure with tubular necrosis; Z68.41 Body mass index [BMI] 40.0-44.9, adult; E87.3 Alkalosis; E87.2 Acidosis; D69.8 Other specified hemorrhagic conditions; D64.9 Anemia, unspecified; D69.6 Thrombocytopenia, unspecified; E87.70 Fluid overload, unspecified; E11.649 Type 2 diabetes mellitus with hypoglycemia without coma; I11.0 Hypertensive heart disease with heart failure; J44.9 Chronic obstructive pulmonary disease, unspecified; E66.01 Morbid (severe) obesity due to excess calories; F32.9 Major depressive disorder, single episode, unspecified; I95.9 Hypotension, unspecified; E87.5 Hyperkalemia; D72.829 Elevated white blood cell count, unspecified; G43.909 Migraine, unspecified, not intractable, without status migrainosus; R50.9 Fever, unspecified; R00.0 Tachycardia, unspecified; E87.6 Hypokalemia; E78.5 Hyperlipidemia, unspecified; I46.9 Cardiac arrest, cause unspecified; Z66 Do not resuscitate; Z96.651 Presence of right artificial knee joint; Z99.81 Dependence on supplemental oxygen
CPT/HCPCS: 31500; 36415; 36430; 36600; 71045-TC-FY; 80048; 80053; 81003; 82248; 82550; 82553; 82728; 82803; 82962; 83540; 83550; 83605; 83615; 83735; 84100; 84484; 85025; 85027; 85045; 85379; 85610; 85651; 85730; 86140; 86803; 86850; 86900; 86901; 86922; 87040; 87070; 87077; 87086; 87186; 87205; 87340; 87536; 87804; 93005; 93010; 94002; 94640; 94660; 99291; C9399; C9803; J0131; J3490; P9047; P9058; U0003; U0005